=== PATIENT | female | born 1950 | race Caucasian/White ===

== ENCOUNTER → 2018-03-14 12:34 | Outpatient (CLI) | payer BC, SELFPAY ==
--- NOTE | 2018-03-14 12:37 | BI_ITS ---
MAMMOGRAPHY - BILATERAL SCREENING REASON FOR EXAM: Female, 67 years old. Routine annual screening examination. PERTINENT HISTORY: Mother with breast cancer. Grandmother with breast cancer. TECHNIQUE: Digital bilateral breast luis antonio (3D mammographic acquisition) in the CC and MLO projections. 2-D mediolateral oblique (MLO) and craniocaudad (CC) views of both breasts were obtained. CAD: Full Field Digital Mammography with Computer Added Detection was performed. COMPARISON: Comparison is made with prior study a number 02/11/2016 and March 08, 2016. FINDINGS: Breast Composition: The breasts are heterogeneously dense, which may obscure small masses. There are no dominant masses or suspicious calcifications. No other significant abnormalities are identified. There has been no significant change since the prior study. BI/SCREENING MAMM (CAD), BILAT IMPRESSION: Stable bilateral screening mammogram. Yearly follow-up mammogram recommended. (A) ASSESSMENT CATEGORY: BIRADS Category 1: Negative. A letter regarding these results will be sent to the patient by the facility within 30 days. Approximately 10% of breast cancers are not detected by mammography. A normal mammogram should not delay biopsy of a clinically suspicious abnormality. [id number] Electronically Signed: Adrián Geiger MD at 14:41 EST Tel [phone], Service support ,
--- NOTE | 2018-03-14 12:39 | BD_ITS ---
STUDY: DUAL ENERGY X-RAY ABSORPTIOMETRY / DXA REASON FOR EXAM: Female, 67 years old. The patient is postmenopausal. Loss of height. TECHNIQUE: Bone Mineral Density (BMD) measurements of lumbar spine and bilateral hips were obtained. COMPARISON: Comparison is made with prior study dated March 08, 2016. FINDINGS: Lumbar Spine (L1-L4): g/cm2 (1.223) / T-score (0.4) / Z-score (2.1) Findings are suggestive of normal bone density with a low fracture risk. Left Femur Total: g/cm2 (0.636) / T-score (-2.9) / Z-score (-1.7) Left Femoral Neck: g/cm2 (0.682) / T-score (-2.6) / Z-score (-1.0) Right Femur Total: g/cm2 (0.594) / T-score (-3.3) / Z-score (-2.0) Right Femoral Neck: g/cm2 (0.686) / T-score (-2.5) / Z-score (-1.0) The T-Scores on the most recent prior examination were: Lumbar Spine (L1-L4): There has been improvement of bone density since the previous examination. Left Femur Total: which represents a worsening of 9.8%. Right Femur Total: which represents a worsening of 14.9%. BD/Dexa Bone Density Study IMPRESSION: The patient is considered osteoporotic as outlined below according to World [employer] Organization (WHO) criteria with a high fracture risk. There has been worsening of bone density since the previous examination. Reference Information: The T-score is the number of standard deviations above or below the standard which is normal for young adults at their peak bone mineral density. The World Health Organization (WHO) interprets the T-scores as follows: Above -1 Normal bone density Between -1 and -2.5 Osteopenia Equal to / or below -2.5 Osteoporosis As a practical clinical guideline, osteopenia may be graded as follows: Mild -1 through -1.5 Moderate -1.6 through -2.0 Severe -2.1 through -2.4 The Z-score is the number of standard deviations above or below age-matched controls. A Z-score of less than -1.5 would be considered abnormal. References: 1. NIH Osteoporosis and Related Bone Diseases http://www.osteo.org 2. International Society for Clinical Densitometry http://www.iscd.org 3. National Osteoporosis Foundation http://www.nof.org Electronically Signed: Adrián Geiger MD at 13:08 EST Tel [phone], Service support ,
--- OUTSIDE RECORDS SUMMARY | 2018-05-09 15:53 | XMS RPT_ITS | Continuity of Care Document ---
:1950 Author Organization [facility] Address [address] [facility] [address] [place] [address] Phone Care Team Providers Name Role Phone Guy DURAN Allison A Unavailable Dr. 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) Status: Active Chronic fatigue (R53.82, 780.79) Comments: she will talk with Rachel about xr version of ritalin so lasts longer Status: Active Chronic obstructive pulmonary disease (J44.9, 496) Comments: chronic stable-continue present regimen Status: Active Colon polyp (K63.5, 211.3) Comments: recheck 08/2020 Status: Active Deliveries (Parity) Comments: 2 Status: Active Depression (F32.9, 311) Comments: improved Status: Active Encounter for hepatitis C virus screening test for high risk patient (Z11.59, V73.89) Status: Active Encounter for screening mammogram for breast cancer (Renamed from Encounter for screening mammogram for malignant neoplasm of breast) (Z12.31, V76.12) Status: Active Encounter for screening mammogram for breast cancer (Renamed from Encounter for screening mammogram for malignant neoplasm of breast) (Z12.31, V76.12) Status: Active Encounter for screening mammogram for breast cancer (Renamed from Screening mammogram, encounter for) (Z12.31, V76.12) Status: Active Episode of recurrent major depressive disorder, unspecified depression episode severity (F33.9, 296.30) Comments: mood ok Status: Active Hallucinations, visual (R44.1, 368.16) Comments: think was higher dose of welbutrin so dont go up on doseage again Status: Active Hypercalcemia (E83.52, 275.42) Status: Active Hyperlipidemia (E78.5, 272.4) Comments: we discussed diet changes to improve Status: Active Inability to walk (R26.2, 719.7) Comments: doing bit better Status: Active 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, 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) Comments: workup neg maybe due to meds not present right now Status: Active Low back pain potentially associated with radiculopathy (M54.5, 724.2) Status: Active [facility] wellness exam Status: Active [facility] WELLNESS EXAM Status: Active Mixed incontinence (N39.46, 788.33) Status: Active Multiple sclerosis (G35, 340) Comments: overall stable Status: Active Need for prophylactic vaccination and inoculation against influenza (Renamed from Need for immunization against influenza) (Z23, V04.81) Status: Active Need for prophylactic vaccination and inoculation against influenza (Renamed from Need for immunization against influenza) (Z23, V04.81) Status: Active Nonsmoker (Z78.9, V49.89) Status: Active Osteopenia (M85.80, 733.90) Status: Active Osteoporosis of multiple sites (M81.0, 733.00) Comments: we discussed the need for exercising with weights as she cant walk Status: Active Pneumonia, bacterial (J15.9, 482.9) Status: Active Postmenopausal (Renamed from Postmenopausal status) (Z78.0, V49.81) Status: Active Pregnancies () Comments: 1 Status: Active Synovial cyst (M71.30, 727.40) Comments: reassurance Status: Active UTI (urinary tract infection) (N39.0, 599.0) Status: Active UTI (urinary tract infection) (N39.0, 599.0) Status: Active Wheezing (R06.2, 786.07) Status: Active Medications Name Dates Details Citalopram Hydrobromide 20 MG Oral Tablet 1 (one) Tablet qd for 30 days Quantity: 30 {Tablet} Refills: 5 Ordered:22-Feb-2018Allison DO, Debra A Start : 22-Feb-2018 Active FOLIC ACID, 800MCG (Oral Tablet) 3 tabs qd for 0 days Refills: 0 Ordered:07-Sep-2009 Saurabh Zacarias Losartan Potassium 50 MG Oral Tablet 1 (one) Tablet qd for 0 days Quantity: 30 {Tablet} Refills: 5 Ordered:14-Sep-2017 Florencia Pérez MD Start : 14-Sep-2017 Active MULTIVITAMIN (PO Tab) 1 tab qd for 0 days Refills: 0 Ordered:07-Sep-2009 Saurabh Zacarias Ocrevus 300 MG/10ML Intravenous Solution 1 (one) Milligram Milligram DIRECTED for 0 days Quantity: 1 {Milligram} Refills: 0 Ordered:16-Oct-2017 Kelsey Colon Start : 05-Sep-2017 Active Comments:PER BAVIS PROBIOTIC (Oral Capsule) 1 cap daily Active PROVENTIL HFA, 108 (90 Base)MCG/ACT (Inhalation Aerosol Solution) 2 (two) Puff(s) qid prn for 0 days Quantity: 1 {Aerosol_Soln} Refills: 0 Ordered:24-Nov-2013 Kimberlyn Nascimento LPN Start : 26-Sep-2010 Active Ritalin 10 MG Oral Tablet 2 tabs daily (10 MG) Active Stool softner 1 cap tid Active Vitamin D 2000 UNIT Oral Capsule 1 (one) Capsule qod for 0 days Quantity: 30 {Capsule} Refills: 0 Ordered:05-Sep-2017, Allison AFast DO, Allison A Start : 05-Sep-2017 Active Wellbutrin XL 150 MG Oral Tablet Extended Release 24 Hour 1 (one) Tablet ER 24HR qd for 30 days Quantity: 30 {Tablet} Refills: 5 Ordered:03-Dec-2017 Kelsey Colon Start : 03-Dec-2017 Active Comments:do not go up on doseage - potentially caused hallucinations Ampyra 10mg qd Inactive Ampyra 10 MG Oral Tablet Extended Release 12 Hour 1 (one) Tablet Tablet DIRECTED for 0 days Quantity: 30 {Tablet} Refills: 0 Ordered:18-Jan-2018 Allison Tovar DO AFast , Allison A Start : 05-Sep-2017 End : 18-Jan-2018 Inactive Comments:bAVIS CEFADROXIL, 500MG (Oral Capsule) 1 (one) Capsule bid for 7 days Quantity: 14 {Capsule} Refills: 0 Ordered:02-Mar-2014 Natalya RUBIOValeria Start : 02-Mar-2014 End : 09-Mar-2014 Inactive Cipro 500 MG Oral Tablet 1 (one) Tablet bid for 7 days Quantity: 14 {Tablet} Refills: 0 Ordered:31-Jan-2016 Kinjal Zacarias Start : 31-Jan-2016 End : 07-Feb-2016 Inactive Cipro 500 MG Oral Tablet 1 (one) Tablet Tablet bid for 10 days Quantity: 20 {Tablet} Refills: 0 Ordered:19-Oct-2015 Allison Tovar DO, DO, Allison A Start : 19-Oct-2015 End : 29-Oct-2015 Inactive CLINDAMYCIN HCL, 300MG (Oral Capsule) 1 Capsule q6hrs for 10 days Quantity: 40 Refills: 0 Ordered:26-Sep-2010 Kinjal Zacarias Start : 26-Sep-2010 End : 06-Oct-2010 Inactive CUTIVATE, 0.05% (External Cream) 1 Cream bid for 0 days Quantity: 1 {Cream} Refills: 0 Ordered:26-Sep-2010 Kimberlyn Nascimento LPN Start : 20-Jun-2010 End : 26-Sep-2010 Inactive Grape Seed Extract 60 MG Oral Capsule 1 cap qd for 0 days Refills: 0 Ordered:12-Dec-2016 Kelsey Colon End : 12-Dec-2016 Inactive Levaquin 500 MG Oral Tablet 1 (one) Tablet Tablet in am for 0 days Quantity: 14 {Tablet} Refills: 0 Ordered:17-Apr-2017 Kelsey Colon Start : 11-Jan-2017 End : 17-Apr-2017 Inactive PredniSONE 10 MG Oral Tablet 2 (two) Tablet for 4 days and 1 pill for 4 days for 0 days Quantity: 12 {Tablet} Refills: 0 Ordered:17-Apr-2017 Kelsey Colon Start : 16-Jan-2017 End : 17-Apr-2017 Inactive Comments:take with food in am PredniSONE 20 MG Oral Tablet 1 (one) Tablet bid for 3 days 1 a day for 3 days then stop for 6 days Refills: 0 Ordered:16-Jan-2017 Kelsey Colon Start : 11-Jan-2017 End : 16-Jan-2017 Inactive Prolia 60 MG/ML Subcutaneous Solution 1 (one) Solution Solution q 6 months for 0 days Quantity: 1 {Pre-filled_Pen_Syringe} Refills: 1 Ordered:12-Dec-2016 Kelsey Colon Start : 04-Jul-2016 End : 12-Dec-2016 Inactive PROVIGIL, 200MG (Oral Tablet) 1 tab qd, prn for 0 days Refills: 0 Ordered:11-Oct-2015 Kelsey Colon End : 11-Oct-2015 Inactive ACTONEL, 150MG (Oral Tablet) 1 Tablet q month for 0 days Quantity: 3 {Tablet} Refills: 3 Ordered:05-Oct-2014 Fast DO, Allison AFast DO, Allison A Start : 05-Oct-2014 End : 05-Oct-2014 Discontinued ACTONEL, 35MG (Oral Tablet) 1 (one) Tablet q week for 0 days Quantity: 4 {Tablet} Refills: 3 Ordered:14-Mar-2010 Fast DO, Allison AFast DO, Allison A Start : 14-Mar-2010 End : 14-Mar-2010 Discontinued Calcium 600 MG Oral Tablet 2 tabs bid for 0 days Refills: 0 Ordered:26-Jan-2016 Kinjal Zacarias End : 26-Jan-2016 Discontinued DESIPRAMINE HCL, 100MG (Oral Tablet) 1 1/2 tabs qd for 0 days Refills: 0 Ordered:02-Nov-2014 Kinjal Zacarias End : 02-Nov-2014 Discontinued FLONASE, 50MCG/ACT (Nasal Suspension) 2 (two) Puff(s) daily for 0 days Quantity: 1 {Suspension} Refills: 0 Ordered:24-Nov-2013 MaryannKelsey staples Start : 27-Sep-2011 End : 12-Jun-2016 Discontinued Comments:This order discontinued per [facility]. FOSAMAX, 70MG (Oral Tablet) 1 (one) Tablet q week for 0 days Quantity: 12 {Tablet} Refills: 3 Ordered:10-Mar-2009 Fast DO, Allison AFast DO, Allison A Start : 10-Mar-2009 End : 10-Mar-[address] GON[facility]ALEZ WORT MOOD RELAXER, 300MG (Oral Capsule) 3 caps daily (300 MG) End : 21-Apr-2015 Discontinued VITAMIN D, 400UNIT (Oral Tablet) 2 tabs bid for 0 days Refills: 0 Ordered:26-Jan-2016 Kinjal Zacarias End : 26-Jan-2016 Discontinued Comments:This order discontinued per [facility]. Wellbutrin XL 300 MG Oral Tablet Extended Release 24 Hour 1 (one) Tablet ER 24HR qd for 0 days Quantity: 30 {Tablet} Refills: 3 Ordered:29-Feb-2016 Kinjal Zacarias Start : 10-Jan-2016 End : 29-Feb-2016 Discontinued Allergies and Adverse Reactions Name Dates Details Riphampin (Allergy) Status: Active Past Medical History Name Dates Details Abnormal EKG (R94.31, 794.31) Status: Inactive as of 05-Sep-2017 Abnormal urine (R82.90, 791.9) Status: Resolved as of 21-Nov-2011 Atypical Spitz nevus (D48.5, 238.2) Status: Resolved as of 14-Mar-2010 BMI less than 19,adult (Z68.1, V85.0) Status: Inactive as of 05-Sep-2017 Chest pain (R07.9, 786.59) Status: Resolved as of 10-Mar-2009 Diarrhea (R19.7, 787.91) Status: Resolved as of 21-Nov-2011 Dysuria (R30.0, 788.1) Status: Inactive as of 12-Oct-2008 Eczema herpeticum (B00.0, 054.0) Status: Resolved as of 02-Nov-2014 Elevated blood-pressure reading without diagnosis of hypertension (R03.0, 796.2) Status: Resolved as of 02-Nov-2014 Lesion of lower extremity (L98.9, 709.9) Comments: scab like at site of ? twig insertion antibiotics completed now smaller but still present continue to observe. wear sock well above or below Status: Inactive as of 05-Sep-2017 Multiple Sclerosis Status: Inactive as of 23-May-2016 Need for prophylactic vaccination and inoculation against influenza (Z23, V04.81) Status: Inactive as of 01-Mar-2015 Other specified viral infection, in conditions classified elsewhere and of unspecified site (B97.89, 079.89) Status: Resolved as of 01-Mar-2015 Pain in unspecified hip (M25.559, 719.45) Comments: she feels this is better Status: Inactive as of 05-Sep-2017 Pre-operative examination (Z01.818, V72.84) Status: Inactive as of 12-Oct-2008 Prophylactic vaccination against streptococcus pneumoniae and influenza (Z23, V06.6) Status: Inactive as of 12-Oct-2008 REACTION DUE TO ASPIRATION, FLUID (E879.4) Status: Resolved as of 21-Nov-2011 scrdeening Status: Inactive as of 01-Mar-2015 screen Status: Inactive as of 10-Mar-2009 screening Status: Inactive as of 01-Mar-2015 screening Status: Inactive as of 01-Mar-2015 screening Status: Inactive as of 01-Mar-2015 screening Status: Inactive as of 21-Nov-2011 TUBERCULOSIS OF LUNG; INFILTRATIVE, BACTERIOLOGICAL OR HISTOLOGICAL EXAMINATION RESULTS UNKNOWN (AT PRESENT) (011.02) Status: Resolved as of 10-Mar-2009 Unspecified Diagnosis Status: Inactive as of 01-Mar-2015 Vaccine for jrijllqtkk-zxrepcl-rrnpiwmcx with poliomyelitis (Z23, V06.3) Status: Inactive as of 18-Nov-2012 Wheezing (R06.2, 786.07) Status: Inactive as of 23-May-2016 Procedures Procedure Dates Details Hysterectomy, Total Completed Comments: 2008- no cancer Tonsillectomy Completed Date Value Details 12-Mar-2017 SCREENING MAMM (CAD), BILAT Result: Comments: See Note; NOTES: [facility] Imaging Services [address] [place] [address] SCREENING MAMM (CAD), BILAT MR#: [id number] Acct: [id number] Name: GREY WOMACK Rep #: [id number] : 1950 F 66 From: Milton Grubbs MD PCP: Allison Tovar DO Status: REG CLI Study: SCREENING MAMM (CAD), BILAT Date of Exam: 03/12/17 Exam# [id number] Ordering Dr: Allison Tovar DO MAMMOGRAPHY - BILATERAL SCREENING REASON FOR EXAM: Female, 66 years old. Routine annual screening examination. PERTINENT HISTORY: Grandmother and mother with breast cancer. TECHNIQUE: Digital examination. Medio lateral oblique (MLO) and craniocaudad (CC) views of both breasts were obtained, along with 3-D tomosynthesis. CAD: CAD was performed on this study. COMPARISON: 03/08/2016 FINDINGS: Breast Density: Scattered fibroglandular densities. There are no dominant masses or suspicious calcifications. No other significant abnormalities are identified. There has been no si gnificant change since the prior study. HPBI/SCREENING MAMM (CAD), BILAT IMPRESSION: Stable bilateral screening mammogram. Yearly follow-up mammo gram recommended. (A) ASSESSMENT CATEGORY: BIRADS Category 2: Benign. A letter regarding these results will be sent to the patient by the facility within 30 days. BR2 Approximately 10% of breast cancers are not detected by mammography. A normal mammogram should not delay biopsy of a clinically suspicious abnormality. [id number] Electronically Signed: Jacob barraza MD at 11:13 EST , Service support , CC: Allison Tovar DO Milk Delivery Driver: Signed 16-Jan-2017 Chest PA and Lateral Result: Comments: See Note; NOTES: [facility] Imaging Services [address] [place] [address] Chest PA and Lateral MR#: [id number] Acct: [id number] Name: GREY WOMACK El Rep #: [id number] : 1950 F 66 From: Layo Wiley DO PCP: Allison Tovar DO Status: REG CLI Study: Chest PA and Lateral Date of Exam: 01/16/17 Exam# [id number] Ordering Dr: Allison Tovar DO STUDY: X-RAY CHEST R JENNIFER FOR EXAM: Female, 66 years old. Cough, upper respiratory infection TECHNIQUE: AP and lateral views of the chest. COMPARISON: Comparison is made with report of prior study from 09/26/2010. FINDINGS: The lungs are hyperinflated. There is streaky opacity within both upper lobes. This may represent chronic scarring/atelectasis. There is no demonstrated pleural abnormality. Normal size heart. Normal mediastinum and francesco. Normal visualized pulmonary arteries. Normal visualized aortic arch and descending thoracic aorta. Normal visualized thoracic spine. Normal visualized ribs, clavicles, and shoulders. There is no demonstrated abnormality of the visualized soft tissue structures of the upper abdomen. RAD/Chest PA and Lateral IMPRESSION: Hyperinflation with bilateral streaky upper lobe densities which may represent chronic scarring. Electronically Signed: Layo Wiley DO at 13:37 EDT Tel , Service support , CC: Allison Tovar DO Milk Delivery Driver: Signed 21-Nov-2016 Brain W/WO Contrast Result: Comments: See Note; NOTES: [facility] Imaging Services [address] [place] [address] Brain W/WO Contrast MR#: [id number] Acct: [id number] Name: ANGELITORADHAGREY Rep #: [id number] : 1950 F 66 From: Ang Ledezma DO PCP: Allison Tovar DO Status: REG CLI Study: Brain W/WO Contrast Date of Exam: 11/21/16 Exam# [id number] Ordering Dr: Bakari Ramos MD STUDY: MRI BRAIN W ITH AND WITHOUT CONTRAST REASON FOR EXAM: Female, 66 years old. Multiple sclerosis undergoing yearly reexamination. TECHNIQUE: Standardized multiplanar fat and water weighted pulse sequences were obta ined. 6 ml of Gadavist contrast material was administered intravenously for the contrast portion of the examination. COMPARISON: MRI BRAIN-July 03, 2012 FINDINGS: There is moderate to severe cerebral atrophy with widening of the extra-axial spaces and ventricular dilatation, which appears similar and unchanged compared the prior examination. There is predominant ventricular enlargement with large posterior horns of the bilateral ventricles. There is severe thinning of the corpus callosum with extensive demyelinating plaque formation extending along the inferior aspect of the corpus callosum with extensive periventricular/septocallosal perpendicular demyelinating plaques in a periventricular location. There is a juxtacortical area of demyelination involving th e right frontal lobe (axial T2 FLAIR series 8, image 16). There are confluent areas of demyelination extending along the bilateral optic radiations to the occipital lobes (axial T2 FLAIR series 8, image 12). The demyelinating plaques extending along the periventricular location involving the bilateral temporal horns (axial T2 FLAIR series 8, image 11). There is no active demyelinating plaque disease a nd there are no enhancing lesions. There is no demonstrated demyelinating disease of the brainstem or posterior fossa. There is no evidence for recent intracranial ischemia or other cause of cytotoxic e karla on diffusion weighted imaging (DWI). Normal bilateral basal ganglia. Normal thalami. There is no extra-axial fluid accumulation. Normal flow voids within the major intracranial circulation sugges ting patency by spin echo criteria. Normal venous enhancement. There is no enhancing intra-axial or extra-axial abnormality. Normal sella turcica, pituitary gland, infundibular stalk, optic chiasm and hypothalamus. Normal tectal plate and pineal gland. Normal midbrain, chance and medulla. There is severe prominence of the vermian folia, consistent with atrophy of the vermis (sagittal T1 FLAIR series 3 , image 12).. The cerebellar hemispheres are normal. Normal basal cisterns. Normal bilateral temporal bones. Normal bilateral internal auditory canals. No demonstrated orbital abnormality, within the c onstraints of a routine brain study. Normal visualized paranasal sinuses. Normal calvarium and skull base. Normal visualized soft tissue structures. Normal visualized upper cervical spine. MRI/Brain W/WO Contrast IMPRESSION: 1. Extensive demyelinating plaque disease of the supratentorial brain, but without active demyelination. 2. Moderate to se sheyla cerebral atrophy with prominent ventricular enlargement. 3. Severe vermian atrophy of the cerebellum. Electronically Signed: Ang Ledezma DO at 15:38 EDT Tel , Ser vice support , CC: Allison Tovar DO; Bakari Ramos Milk Delivery Driver: Signed 08-Mar-2016 Bilat Scrn Digital AND CAD Result: Comments: See Note; NOTES: [facility] Imaging Services [address] [place] [address] Verdana 4d Bilat Scrn Digital AND CAD MR#: [id number] Acct: [id number] Name: GREY WOMACK Rep #: [id number] : 1950 F 65 From: Adrián Geiger MD PCP: Allison Tovar DO Status: REG CLI Study: Bilat Scrn Digital AND CAD Date of Exam: 03/08/16 Exam# [id number] Ordering Dr: Allison Tovar DO MAMMOGRAPHY - BILATERAL SCREENING REASON FOR EXAM: Female, 65 years old. Routine annual screening examination. PERTINENT HISTORY: Mother with breast cancer. Grandmother with breast cancer. TECHN IQUE: Digital bilateral breast luis antonio (3D mammographic acquisition) in the CC and MLO projections. 2-D mediolateral oblique (MLO) and craniocaudad (CC) views of both breasts were obtained. CAD: Full Field Digital Mammography with Computer Added Detection was performed. COMPARISON: Comparison is made with prior study dated December 11, 2014 and December 10, 2013. FINDING S: Breast Composition: The breasts are heterogeneously dense, which may obscure small masses. There are no dominant masses or suspicious calcifications. No other significant abnormalities are identifi ed. There has been no significant change since the prior study. HPBI/Bilat Scrn Digital AND CAD IMPRESSION: Stable bilateral screening mammogram. Yearly follow-up mammogram recommended. (A) ASSESSMENT CATEGORY: BIRADS Category 1: Negative. A letter regarding these results will be sent to the patient by the [facility] within 30 days. Approximately 10% of breast cancers are not detected by mammography. A normal mammogram should not delay biopsy of a clinically suspicious abnormality. [id number] Electronically S igned: Adrián Geiger MD at 12:48 EST Tel [phone], Service support [phone], CC: Allison Tovar DO Milk Delivery Driver: Signed 08-Mar-2016 Dexa Bone Density Study (HP) Result: Comments: See Note; NOTES: [facility] Imaging Services [address] [place] [address] Verdana 4d Dexa Bone Density Study (HP) MR#: [id number] Acct: [id number] Name: HIMA WOMACK Thierry Gallegos Rep #: [id number] : 1950 F 65 From: Adrián Geiger MD PCP: Allison Tovar DO Status: REG CLI Study: Dexa Bone Density Study (HP) Date of Exam: 03/08/16 Exam# [id number] Ordering Dr: Terry DO STUDY: DUAL ENERGY X-RAY ABSORPTIOMETRY / DXA REASON FOR EXAM: Female, 65 years old. Early menopause. Loss of height. The patient is in a wheelchair. Decreased mobility. TECHNIQUE: Bone Irrigation Teacher al Density (BMD) measurements of both forearms were obtained. COMPARISON: None. FINDINGS: Right Forearm: g/cm2 (0.747) / T-score (-1.6) / Z-score (-0.2) Left Forea rm: g/cm2 (0.672) / T-score (-2.4) / Z-score (-1.1) HPBD/Dexa Bone Density Study (HP) IMPRESSION: The patient is considered osteopenic as outlin ed below according to World Edmar Organization (WHO) criteria with a moderate fracture risk. Reference Information: The T-score is the number of standard deviations above or below the standard which is normal for young adults at their peak bone mineral density. The World Health Organization (WHO) interprets the T-scores as follows: Above -1 Normal bone density Be tween -1 and -2.5 Osteopenia Equal to / or below -2.5 Osteoporosis As a practical clinical guideline, osteopenia may be graded as follows: Mild -1 through -1.5 Moderate -1.6 through -2.0 Severe -2.1 th rough -2.4 The Z-score is the number of standard deviations above or below age- matched controls. A Z-score of less than -1.5 would be considered abnormal. References: 1. NIH Osteoporosis and Related B one Diseases http://www.osteo.org 2. International Society for Clinical Densitometry http://www.iscd.org 3. National Osteoporosis Foundation http://www.nof.org Electronically Signed: Adrián Geiger MD at 10:43 EST Tel [phone], Service support [phone], CC: Allison Tovar DO Milk Delivery Driver: Signed 07-Feb-2016 L/S Spine Min 4 Views Result: Comments: See Note; NOTES: [facility] Imaging Services [address] [place] [address] Verdana 4d L/S Spine Min 4 Views MR#: [id number] Acct: [id number] Name: GREY WOMACK Re p #: [id number] : 1950 F 65 From: Lucio Walton MD PCP: Allison Tovar DO Status: REG CLI Study: L/S Spine Min 4 Views Date of Exam: 02/07/16 Exam# [id number] Ordering Dr: Allison Tovar DO STUDY : X-RAY - LUMBAR SPINE REASON FOR EXAM: Female, 65 years old. Back pain TECHNIQUE: 5 view(s) of the lumbar spine were obtained. COMPARISON: None FINDINGS: No defi nite acute abnormality. Mild scoliosis to the right. Normal lordosis. 9 mm anterolisthesis of L4 on L5. Otherwise normal alignment. Mild/moderate degenerative disc disease at multiple levels most pronou nced at L1-L2 and L2-L3. Multilevel facet joint degenerative disease. Soft tissues grossly negative. IMPRESSION: No definite acute abnormalities. Degenerative changes. Malalignment of L4 on L5. Electr onically Signed: Lucio Walton MD at 21:06 EDT , Service support [phone], RAD/L/S Spine Min 4 Views CC: Allison Tovar DO Milk Delivery Driver: Signed 14-Oct-2015 Brain W/WO Contrast Result: Comments: See Note; NOTES: [facility] Imaging Services [address] [place] [address] Verdana 4d Brain W/WO Contrast MR#: [id number] Acct: [id number] Name: GREY WOMACK Rep #: [id number] : 1950 F 65 From: Moriah Juarez MD PCP: Allison Tovar DO Status: REG CLI Study: Brain W/WO Contrast Date of Exam: 10/14/15 Exam# [id number] Ordering Dr: Allison Tovar DO STUDY: MRI BRAIN WITH AND WITHOUT CONTRAST REASON FOR EXAM: Female, 65 years old. MS, lesion progression, difficulty walking, moving TECHNIQUE: Standardized multiplanar fat and water weighted pulse sequences were obtained. 5 ml of Gadavist contrast material was administered intravenously for the contrast portion of the examination. COMPARISON: None. FINDINGS: Normal size of the ventricles and extra-axial spaces for the patient's age. Normal white matter tracts of the supratentorial brain. There are multiple demyelinating plagues of the supraten torial brain and in the left middle cerebellar peduncle, findings suspicious for multiple sclerosis (MS). Normal bilateral basal ganglia. Normal thalami. There is no extra-axial fluid accumulation. Normal flow voids within the major intracranial circulation suggesting patency by spin echo criteria. Normal venous enhancement. There is no enhancing intra- axial or extra-axial abnormality. Norm al sella turcica, pituitary gland, infundibular stalk, optic chiasm and hypothalamus. Normal tectal plate and pineal gland. Normal midbrain, chance and medulla. Normal cerebellum. Normal basal cistern s. Normal bilateral temporal bones. Normal bilateral internal auditory canals. No demonstrated orbital abnormality, within the constraints of a routine brain study. There is a mucosal retention cyst in left maxillary sinus measures 2.5 cm. Normal calvarium and skull base. Normal visualized soft tissue structures. Normal visualized upper cervical spine. IMPR ESSION: There are multiple demyelinating plagues of the supratentorial brain and in the left middle cerebellar peduncle, findings suspicious for multiple sclerosis (MS). No abnormal enhancement is se en after contrast administration to suggest active demyelination. Electronically Signed: Moriah Juarez MD at 11:10 EDT Tel , Service support [phone], Fax CC: Allison Tovar DO Milk Delivery Driver: Signed 14-Oct-2015 Brain W/WO Contrast Result: Comments: See Note; NOTES: [facility] Imaging Services [address] [place] [address] Youdacorey 4d Brain W/WO Contrast MR#: [id number] Acct: [id number] Name: GREY WOMACK Rep #: [id number] : 1950 F 65 From: Moriah Juarez MD PCP: Allison Tovar DO Status: REG CLI Study: Brain W/WO Contrast Date of Exam: 10/14/15 Exam# [id number] Ordering Dr: Allison Tovar DO ADDENDUM by Moriah Juarez MD on 10/15/15 at 1238 ADDENDUM There has been no significant c hange in the number and size of the lesions of the supratentorial brain and the left middle cerebellar peduncle, since the study from July 03, 2012. Electronically Signed: Moriah Juarez MD 10/14 at 12:38 EDT Tel , Service support [phone], 10/15/15 1238 Date cc: Allison Tovar DO * Signed STUDY: MRI BRAIN WITH AND WITHOUT CONTR AST REASON FOR EXAM: Female, 65 years old. MS, lesion progression, difficulty walking, moving TECHNIQUE: Standardized multiplanar fat and water weighted pulse sequences were obtained. 5 ml of Gada vist contrast material was administered intravenously for the contrast portion of the examination. COMPARISON: None. FINDINGS: Normal size of the ventricles an d extra-axial spaces for the patient's age. Normal white matter tracts of the supratentorial brain. There are multiple demyelinating plagues of the supratentorial brain and in the left middle cerebel lar peduncle, findings suspicious for multiple sclerosis (MS). Normal bilateral basal ganglia. Normal thalami. There is no extra-axial fluid accumulation. Normal flow voids within the major intrac ranial circulation suggesting patency by spin echo criteria. Normal venous enhancement. There is no enhancing intra-axial or extra-axial abnormality. Normal sella turcica, pituitary gland, infundibu lar stalk, optic chiasm and hypothalamus. Normal tectal plate and pineal gland. Normal midbrain, chance and medulla. Normal cerebellum. Normal basal cisterns. Normal bilateral temporal bones. Normal b ilateral internal auditory canals. No demonstrated orbital abnormality, within the constraints of a routine brain study. There is a mucosal retention cyst in left maxillary sinus measures 2.5 cm. N ormal calvarium and skull base. Normal visualized soft tissue structures. Normal visualized upper cervical spine. IMPRESSION: There are multiple demyelinating pl agues of the supratentorial brain and in the left middle cerebellar peduncle, findings suspicious for multiple sclerosis (MS). No abnormal enhancement is seen after contrast administration to suggest active demyelination. Electronically Signed: Moriah Juarez MD at 11:10 EDT Tel , Service support [phone], CC: Allison Tovar DO Milk Delivery Driver: Signed 11-Dec-2014 Bilat Scrn Digital AND CAD Result: Comments: See Note; NOTES: [facility] Imaging Services [address] [place] [address] Breast Imaging Report MR#: [id number] Acct: [id number] Name: HIMA WOMACKThierry Gallegos Rep #: [id number] : 1950 F 64 From: Adrián Geiger MD PCP: Allison Tovar DO Status: REG CLI Study: Bilat Scrn Digital AND CAD Date of Exam: 12/11/14 Exam# [id number] Ordering Dr: Allison Tovar DO MAMMOGRAPHY - BILATERAL SCREENING REASON FOR EXAM: Female, 64 years old. Routine annual screening examination. PERTINENT HISTORY: Mother with breast cancer. Grandmother with breast cancer. REGI HNIQUE: Digital examination. Mediolateral oblique (MLO) and craniocaudad (CC) views of both breasts were obtained. CAD: CAD was performed on this study. COMPARISON: Comparison is made with prior joyce dy dated December 10, 2013 and December 09, 2012. FINDINGS: Breast Composition: The breasts are heterogeneously dense, which may obscure small masses. There are n o dominant masses or suspicious calcifications. No other significant abnormalities are identified. There has been no significant change since the prior study. I MPRESSION: Stable bilateral screening mammogram. Yearly follow-up recommended. (A) ASSESSMENT CATEGORY: BIRADS Category 1: Negative. A letter regarding these re sults will be sent to the patient by the facility within 30 days. Approximately 10% of breast cancers are not detected by mammography. A normal mammogram should not delay biopsy of a clinically susp icious abnormality. Electronically Signed: Adrián Geiger MD at 10:36 EDT Tel [phone], Service support [phone], CC: Allison Tovar DO Milk Delivery Driver: Signed 12-Oct-2014 Hip min 2 Views Result: Comments: See Note; NOTES: [facility] Imaging Services [address] [place] [address] Radiology Report MR#: [id number] Acct: [id number] Name: VUGREY Rep #: [id number] : 1950 F 64 From: Adrián Geiger MD PCP: Allison Tovar DO Status: REG CLI Study: Hip min 2 Views Date of Exam: 10/12/14 Exam# [id number] Ordering Dr: Allison Tovar DO STUDY: X-RAY - RIGHT HIP REASON FOR EXAM: Female, 64 years old. Hip pain. TECHNIQUE: 2 view(s) of the hip. COMPARISON: None. FINDINGS: Normal femoral head, neck, intertr ochanteric region and visualized proximal femur. Normal acetabulum. Normal hip joint. Normal visualized superior and inferior pubic rami and ischial tuberosities. __ IMPRESSION: Normal x-ray examination of the hip. Electronically Signed: Adrián Geiger MD at 15:50 EDT Tel [phone], Service support [phone], RAD/Hip min 2 Views IMPRESSION: Normal x-ray examination of the hip. Electronically Signed: Adrián Geiger MD at 15:50 EDT Tel [phone], Service support , CC: Allison Tovar DO Milk Delivery Driver: Signed 10-Dec-2013 Robina Simmons Digital & CAD Result: Comments: See Note; NOTES: [facility] Imaging Services [address] [place] [address] Breast Imaging Report MR#: [id number] Acct: [id number] Name: GREY WOMACK Rep #: [id number] : 1950 F 63 From: Adrián Geiger MD PCP: Allison Tovar DO Status: REG CLI Exam# [id number] Ordering Dr: Allison Tovar DO MAMMOGRAPHY - BILATERAL SCREENING REASON FOR EXAM: Fem paulie, 63 years old. Routine annual screening examination. PERTINENT HISTORY: Mother with breast cancer. Grandmother with breast cancer. TECHNIQUE: Digital examination. Mediolateral oblique (MLO) an d craniocaudad (CC) views of both breasts were obtained. CAD: CAD was performed on this study. COMPARISON: Comparison is made with prior study dated December 09, 2012 and December 05, 2011 FINDINGS: Breast Composition: The breasts are extremely dense, which lowers the sensitivity of mammography. There are no dominant masses or suspicious calcifications. No other significant abnormalities are identified. There has been no significant change since the prior study. IMPRESSION: Stable bilateral screening mammogram. Ye georgette follow-up recommended. (A) ASSESSMENT CATEGORY: BIRADS Category 2: Benign finding(s). A letter regarding these results will be sent to the patient by the fa cility within 30 days. Approximately 10% of breast cancers are not detected by mammography. A normal mammogram should not delay biopsy of a clinically suspicious abnormality. Electronically Signed : Adrián Geiger MD at 10:53 EDT Tel [phone], Service support [phone], CC: Allison Tovar DO Milk Delivery Driver: Signed 10-Dec-2013 Dexa Bone Density Study (HP) Result: Comments: See Note; NOTES: [facility] Imaging Services [address] [place] [address] Bone Density Report MR#: [id number] Acct: [id number] Name: ANGELITORADHAGREY Rep #: [id number] : 1950 F 63 From: Adrián Geiger MD PCP: Allison Tovar DO Status: [facility] Study: Dexa Bone Density Study (HP) Date of Exam: 12/10/13 Exam# [id number] Ordering Dr: Allison Tovar DO STUDY: DUAL ENERGY X-RAY ABSORPTIOMETRY / DXA REASON FOR EXAM: Female, 63 years old. Osteopenia. TECHNIQUE: Bone Mineral Density (BMD) measurements of lumbar spine and bilateral hips were obtained . COMPARISON: Comparison is made with prior study dated December 05, 2011. FINDINGS: Lumbar Spine (L1-L4): g/cm2 (0.964) / T-score (-1.7) / Z-score (- 0.3) Findi ngs are suggestive of osteopenia with a moderate fracture risk. Left Femur Total: g/cm2 (0.705) / T-score (-2.4) / Z-score (-1.3) Left Femoral Neck: g/cm2 (0.704) / T-score (-2.4) / Z-score (-1.1) R ight Femur Total: g/cm2 (0.698) / T-score (-2.5) / Z-score (-1.4) Right Femoral Neck: g/cm2 (0.745) / T-score (-2.1) / Z-score (-0.8) The T-Scores on the most recent prior examination were: Lumbar Spine (L1-L4): There has been improvement of bone density since the previous examination. Left Femur Total: which represents a worsening of 5.6%. Right Femur Total: which represents a worsening of 3 .9%. IMPRESSION: The patient is considered osteopenic as outlined below according to World Edmar Organization (WHO) criteria with a moderate fracture risk. There has been worsening of bone density since the previous examination. Reference Information: The T-score is the number of standard deviations above or below the standard which is normal for young adults at their peak bone mineral density. The World Health Organization (WHO) interprets the T-scores as follows: Above -1 Normal bone density Between -1 and -2. 5 Osteopenia Equal to / or below -2.5 Osteoporosis As a practical clinical guideline, osteopenia may be graded as follows: Mild -1 through -1.5 Moderate -1.6 through -2.0 Severe -2.1 through -2.4 The Z-score is the number of standard deviations above or below age-matched controls. A Z-score of less than -1.5 would be considered abnormal. References: 1. NIH Osteoporosis and Related Bone Dis eases http://www.osteo.org 2. International Society for Clinical Densitometry http://www.iscd.org 3. National Osteoporosis Foundation http://www.nof.org Electronically Signed: Taylor Castellanos at 15:16 EDT Tel [phone], Service support [phone], CC: Allison Tovar DO Milk Delivery Driver: Signed 02-Sep-2013 PT Discharge Summary Result: Comments: See Note; NOTES: [facility] Physical [facility] [address] [place], [place] [address] Fax REHABILITATION SERVICES DISCHARGE SUMMARY MR#: [id number] Acct: [id number] Name: GREY WOMACK Rep #: [id number] : 1950 63 From: Susie Angel Referring Dr.: OUT OF TOWN DOCTOR Status: REG RCR Eval Date: Date: DATE OF SERVICE: REFERRING PHYSICIAN: ____. REFERRING DIAGNOSIS: Multiple sclerosis. HOSPITAL COURSE: Grey has been seen in our clinic for a total of 15 visits for therapeutic activities, therapeutic exercise, balance activities, core strengthening, lower extremity strengthening with a home exercise program. During her time here, we also did some gait analysis with her a nd discovered that her hip hiking was extremely weak and since we have had her doing those exercises at home, she has had major improvement with gait with decreased hip sway and increased trunk exte nsion and increased step length. At this point in time, she has a home exercise program and will continue to do so at home. I will be happy to see her in time if she feels she needs any adjustment to her program or any relapse in her MS progression. Thank you once again for the referral of Grey to our clinic. It was my pleasure to work with her. Susie Angel, PT T: NTS JOB: [id number] <Electronically signed by Susie Angel > 09/02/13 1138 CC: Signed Immunization Name Dates Details Influenza (3 years and up) on: 18-Feb-2007 Comments: Lot #: [id number] date: 09/21Amount given: 0.5 mlRoute: IMSite given: Left deltoidGiven by: Sushila Torres LPN Influenza (3 years and up) on: 21-Jan-2009 Pneumococcal (2 years and up) on: 01-Apr-2008 Comments: Lot #[id number]-left deltoidDose0.5mlgiven by Sabiha Goldstein LPN Family History Unknown Family Member Name Dates Details Brother 1 Comments: living and healthy at age 62- Status: Active Father Comments: in early 60s- heart issues - smoker Status: Active Mother Comments: living at 92- alone- really good health- mom in her mid 80s had breast cancer- and mastectomy- and her mother had breast cancer at old age as well Status: Active Social History Name Dates Details Alcohol Use Comments: Occasional alcohol use Status: Active Caffeine Use Status: Active No Drug Use Status: Active Non Smoker/No Tobacco Use Status: Active Tobacco use: Never smoker. Status: Active Smoking Status Name Dates Details Never smoker Vital Signs Date Test Result Details [id number] Temperature 96.7 f Comments: Method: Temporal Pulse 90 /min Comments: Pattern: Regular Respiration Rate 16 /min Comments: Pattern: Unlabored BP Systolic 108 mm[Hg] Comments: Patient Position: Sitting; Cuff Location: Left Arm; Cuff Size: Standard BP Diastolic 70 mm[Hg] Comments: Patient Position: Sitting; Cuff Location: Left Arm; Cuff Size: Standard Weight 130 lb Height 63 in Body Mass Index Calculated 23.03 kg/m2 Body Surface Area Calculated 1.61 m2 [id number] Temperature 97.6 f Comments: Method: Temporal Pulse 80 /min Comments: Pattern: Regular Respiration Rate 16 /min Comments: Pattern: Unlabored BP Systolic 120 mm[Hg] Comments: Patient Position: Sitting; Cuff Location: Left Arm; Cuff Size: Standard BP Diastolic 80 mm[Hg] Comments: Patient Position: Sitting; Cuff Location: Left Arm; Cuff Size: Standard Weight 130 lb Height 63 in Body Mass Index Calculated 23.03 kg/m2 Body Surface Area Calculated 1.61 m2 :26 Temperature 99.2 f Comments: Method: Temporal Pulse 83 /min Comments: Pattern: Regular Respiration Rate 16 /min Comments: Pattern: Unlabored BP Systolic 120 mm[Hg] Comments: Patient Position: Sitting; Cuff Location: Left Arm; Cuff Size: Standard BP Diastolic 78 mm[Hg] Comments: Patient Position: Sitting; Cuff Location: Left Arm; Cuff Size: Standard Weight 130 lb Height 63 in Body Mass Index Calculated 23.03 kg/m2 Body Surface Area Calculated 1.61 m2 :55 Temperature 97.2 f Comments: Method: Temporal Pulse 76 /min Comments: Pattern: Regular Respiration Rate 16 /min Comments: Pattern: Unlabored O2 SAT 97 % Comments: Room air BP Systolic 112 mm[Hg] Comments: Patient Position: Sitting; Cuff Location: Left Arm; Cuff Size: Standard BP Diastolic 70 mm[Hg] Comments: Patient Position: Sitting; Cuff Location: Left Arm; Cuff Size: Standard Weight 130 lb Height 63 in Body Mass Index Calculated 23.03 kg/m2 Body Surface Area Calculated 1.61 m2 :44 Temperature 97.4 f Comments: Method: Temporal Pulse 94 /min Comments: Pattern: Regular Respiration Rate 16 /min Comments: Pattern: Unlabored O2 SAT 98 % Comments: Room air BP Systolic 122 mm[Hg] Comments: Patient Position: Sitting; Cuff Location: Left Arm; Cuff Size: Standard BP Diastolic 80 mm[Hg] Comments: Patient Position: Sitting; Cuff Location: Left Arm; Cuff Size: Standard Weight 130 lb Height 63 in Body Mass Index Calculated 23.03 kg/m2 Body Surface Area Calculated 1.61 m2 :22 Temperature 97.9 f Comments: Method: Temporal Pulse 94 /min Comments: Pattern: Regular Respiration Rate 20 /min Comments: Pattern: Unlabored O2 SAT 98 % Comments: Room air BP Systolic 142 mm[Hg] Comments: Patient Position: Sitting; Cuff Location: Left Arm; Cuff Size: Standard BP Diastolic 84 mm[Hg] Comments: Patient Position: Sitting; Cuff Location: Left Arm; Cuff Size: Standard Weight 130 lb Height 63 in Body Mass Index Calculated 23.03 kg/m2 Body Surface Area Calculated 1.61 m2 :05 Temperature 98 f Comments: Method: Temporal Pulse 90 /min Comments: Pattern: Regular Respiration Rate 16 /min Comments: Pattern: Unlabored BP Systolic 128 mm[Hg] Comments: Patient Position: Sitting; Cuff Location: Left Arm; Cuff Size: Standard BP Diastolic 80 mm[Hg] Comments: Patient Position: Sitting; Cuff Location: Left Arm; Cuff Size: Standard Weight 130 lb Height 63 in Body Mass Index Calculated 23.03 kg/m2 Body Surface Area Calculated 1.61 m2 :39 Temperature 96.6 f Comments: Method: Temporal Pulse 103 /min Comments: Pattern: Regular Respiration Rate 16 /min Comments: Pattern: Unlabored BP Systolic 126 mm[Hg] Comments: Patient Position: Sitting; Cuff Location: Left Arm; Cuff Size: Standard BP Diastolic 72 mm[Hg] Comments: Patient Position: Sitting; Cuff Location: Left Arm; Cuff Size: Standard Weight 120 lb Height 63 in Body Mass Index Calculated 21.26 kg/m2 Body Surface Area Calculated 1.56 m2 :09 Temperature 97.5 f Comments: Method: Temporal Pulse 94 /min Comments: Pattern: Regular Respiration Rate 15 /min Comments: Pattern: Unlabored O2 SAT 97 % Comments: Room air BP Systolic 110 mm[Hg] Comments: Patient Position: Sitting; Cuff Location: Left Arm; Cuff Size: Standard BP Diastolic 76 mm[Hg] Comments: Patient Position: Sitting; Cuff Location: Left Arm; Cuff Size: Standard Weight 116 lb Height 63 in Body Mass Index Calculated 20.55 kg/m2 Body Surface Area Calculated 1.53 m2 :14 Temperature 97.4 f Comments: Method: Temporal Pulse 80 /min Comments: Pattern: Regular Respiration Rate 16 /min Comments: Pattern: Unlabored O2 SAT 96 % Comments: Room air BP Systolic 118 mm[Hg] Comments: Patient Position: Sitting; Cuff Location: Left Arm; Cuff Size: Standard BP Diastolic 80 mm[Hg] Comments: Patient Position: Sitting; Cuff Location: Left Arm; Cuff Size: Standard Weight 104 lb Height 63 in Body Mass Index Calculated 18.42 kg/m2 Body Surface Area Calculated 1.46 m2 :35 Temperature 96.8 f Comments: Method: Temporal Pulse 72 /min Comments: Pattern: Regular Respiration Rate 16 /min Comments: Pattern: Unlabored O2 SAT 98 % Comments: Room air BP Systolic 122 mm[Hg] Comments: Patient Position: Sitting; Cuff Location: Left Arm; Cuff Size: Standard BP Diastolic 80 mm[Hg] Comments: Patient Position: Sitting; Cuff Location: Left Arm; Cuff Size: Standard Weight 116 lb Height 63 in Body Mass Index Calculated 20.55 kg/m2 Body Surface Area Calculated 1.53 m2 :57 Pulse 78 /min Comments: Pattern: Regular Respiration Rate 16 /min Comments: Pattern: Unlabored BP Systolic 118 mm[Hg] Comments: Patient Position: Sitting; Cuff Location: Left Arm; Cuff Size: Standard BP Diastolic 78 mm[Hg] Comments: Patient Position: Sitting; Cuff Location: Left Arm; Cuff Size: Standard Weight 118 lb Height 63 in Body Mass Index Calculated 20.9 kg/m2 Body Surface Area Calculated 1.55 m2 :46 Temperature 97.4 f Comments: Method: Temporal Pulse 74 /min Comments: Pattern: Regular Respiration Rate 16 /min Comments: Pattern: Unlabored O2 SAT 98 % Comments: Room air BP Systolic 114 mm[Hg] Comments: Patient Position: Sitting; Cuff Location: Left Arm; Cuff Size: Standard BP Diastolic 70 mm[Hg] Comments: Patient Position: Sitting; Cuff Location: Left Arm; Cuff Size: Standard Weight 124 lb Height 63 in Body Mass Index Calculated 21.97 kg/m2 Body Surface Area Calculated 1.58 m2 :59 Temperature 97.6 f Comments: Method: Temporal Pulse 72 /min Comments: Pattern: Regular Respiration Rate 15 /min Comments: Pattern: Unlabored O2 SAT 97 % Comments: Room air BP Systolic 130 mm[Hg] Comments: Patient Position: Sitting; Cuff Location: Left Arm; Cuff Size: Standard BP Diastolic 66 mm[Hg] Comments: Patient Position: Sitting; Cuff Location: Left Arm; Cuff Size: Standard Weight 123 lb Height 63 in Body Mass Index Calculated 21.79 kg/m2 Body Surface Area Calculated 1.57 m2 :44 Temperature 98.6 f Comments: Method: Temporal Pulse 84 /min Comments: Pattern: Regular Respiration Rate 16 /min Comments: Pattern: Unlabored O2 SAT 98 % Comments: Room air BP Systolic 118 mm[Hg] Comments: Patient Position: Sitting; Cuff Location: Left Arm; Cuff Size: Standard BP Diastolic 84 mm[Hg] Comments: Patient Position: Sitting; Cuff Location: Left Arm; Cuff Size: Standard Weight 116 lb Height 63 in Body Mass Index Calculated 20.55 kg/m2 Body Surface Area Calculated 1.53 m2 :14 Temperature 96.8 f Comments: Method: Oral Pulse 94 /min Comments: Pattern: Regular Respiration Rate 16 /min Comments: Pattern: Unlabored BP Systolic 122 mm[Hg] Comments: Patient Position: Sitting; Cuff Location: Left Arm; Cuff Size: Standard BP Diastolic 78 mm[Hg] Comments: Patient Position: Sitting; Cuff Location: Left Arm; Cuff Size: Standard Weight 115 lb Height 63 in Body Mass Index Calculated 20.37 kg/m2 Body Surface Area Calculated 1.53 m2 :47 BP Systolic 128 mm[Hg] Comments: Patient Position: Sitting; Cuff Location: Left Arm; Cuff Size: Standard BP Diastolic 76 mm[Hg] Comments: Patient Position: Sitting; Cuff Location: Left Arm; Cuff Size: Standard :34 Temperature 98.8 f Comments: Method: Oral Pulse 100 /min Comments: Pattern: Regular Respiration Rate 16 /min Comments: Pattern: Unlabored BP Systolic 150 mm[Hg] Comments: Patient Position: Sitting; Cuff Location: Left Arm; Cuff Size: Standard BP Diastolic 94 mm[Hg] Comments: Patient Position: Sitting; Cuff Location: Left Arm; Cuff Size: Standard Weight 114 lb Height 63 in Body Mass Index Calculated 20.19 kg/m2 Body Surface Area Calculated 1.52 m2 :45 Temperature 98.2 f Comments: Method: Oral Pulse 82 /min Comments: Pattern: Regular Respiration Rate 15 /min O2 SAT 98 % Comments: Room air BP Systolic 144 mm[Hg] Comments: Patient Position: Sitting; Cuff Location: Left Arm; Cuff Size: Standard BP Diastolic 82 mm[Hg] Comments: Patient Position: Sitting; Cuff Location: Left Arm; Cuff Size: Standard Weight 112 lb Height 63 in Body Mass Index Calculated 19.84 kg/m2 Body Surface Area Calculated 1.51 m2 :22 Temperature 97.5 f Comments: Method: Oral Pulse 78 /min Comments: Pattern: Regular Respiration Rate 15 /min O2 SAT 98 % Comments: Room air BP Systolic 142 mm[Hg] Comments: Patient Position: Sitting; Cuff Location: Left Arm; Cuff Size: Standard BP Diastolic 82 mm[Hg] Comments: Patient Position: Sitting; Cuff Location: Left Arm; Cuff Size: Standard Weight 112 lb Height 63 in Body Mass Index Calculated 19.84 kg/m2 Body Surface Area Calculated 1.51 m2 :41 Temperature 97.1 f Pulse 88 /min Comments: Pattern: Regular Respiration Rate 16 /min Comments: Pattern: Unlabored BP Systolic 124 mm[Hg] Comments: Patient Position: Sitting; Cuff Location: Left Arm; Cuff Size: Standard BP Diastolic 80 mm[Hg] Comments: Patient Position: Sitting; Cuff Location: Left Arm; Cuff Size: Standard Weight 112 lb Height 63 in Body Mass Index Calculated 19.84 kg/m2 Body Surface Area Calculated 1.51 m2 :26 BP Systolic 140 mm[Hg] Comments: Patient Position: Sitting BP Diastolic 92 mm[Hg] Comments: Patient Position: Sitting :30 Temperature 97.6 f Pulse 86 /min Comments: Pattern: Regular Respiration Rate 16 /min Comments: Pattern: Unlabored BP Systolic 152 mm[Hg] Comments: Patient Position: Sitting; Cuff Location: Left Arm; Cuff Size: Standard BP Diastolic 86 mm[Hg] Comments: Patient Position: Sitting; Cuff Location: Left Arm; Cuff Size: Standard Weight 114 lb Height 63 in Body Mass Index Calculated 20.19 kg/m2 Body Surface Area Calculated 1.52 m2 :25 Temperature 98.7 f Pulse 68 /min Comments: Pattern: Regular Respiration Rate 16 /min Comments: Pattern: Unlabored BP Systolic 120 mm[Hg] Comments: Patient Position: Sitting; Cuff Location: Left Arm; Cuff Size: Standard BP Diastolic 74 mm[Hg] Comments: Patient Position: Sitting; Cuff Location: Left Arm; Cuff Size: Standard Height 63 in :22 Temperature 97.7 f Pulse 96 /min Comments: Pattern: Regular Respiration Rate 16 /min Comments: Pattern: Unlabored BP Systolic 128 mm[Hg] Comments: Patient Position: Sitting; Cuff Location: Left Arm; Cuff Size: Standard BP Diastolic 86 mm[Hg] Comments: Patient Position: Sitting; Cuff Location: Left Arm; Cuff Size: Standard Weight 111 lb Height 63 in Body Mass Index Calculated 19.66 kg/m2 Body Surface Area Calculated 1.51 m2 :52 BP Systolic 114 mm[Hg] Comments: Patient Position: Sitting; Cuff Location: Left Arm; Cuff Size: Standard BP Diastolic 80 mm[Hg] Comments: Patient Position: Sitting; Cuff Location: Left Arm; Cuff Size: Standard :59 BP Systolic 110 mm[Hg] Comments: Patient Position: Sitting; Cuff Location: Right Arm; Cuff Size: Standard BP Diastolic 78 mm[Hg] Comments: Patient Position: Sitting; Cuff Location: Right Arm; Cuff Size: Standard :53 Temperature 98.1 f Pulse 84 /min Comments: Pattern: Regular Respiration Rate 18 /min Comments: Pattern: Unlabored BP Systolic 134 mm[Hg] Comments: Patient Position: Sitting; Cuff Location: Left Arm; Cuff Size: Standard BP Diastolic 92 mm[Hg] Comments: Patient Position: Sitting; Cuff Location: Left Arm; Cuff Size: Standard Weight 111 lb Height 63 in Body Mass Index Calculated 19.66 kg/m2 Body Surface Area Calculated 1.51 m2 :30 Temperature 98.4 f Comments: Method: Oral Pulse 88 /min Comments: Pattern: Regular Respiration Rate 17 /min O2 SAT 98 % Comments: Room air BP Systolic 120 mm[Hg] Comments: Patient Position: Sitting; Cuff Location: Left Arm; Cuff Size: Standard BP Diastolic 78 mm[Hg] Comments: Patient Position: Sitting; Cuff Location: Left Arm; Cuff Size: Standard Weight 115 lb Height 63 in Body Mass Index Calculated 20.37 kg/m2 Body Surface Area Calculated 1.53 m2 :30 Pulse 80 /min Comments: Pattern: Regular Respiration Rate 16 /min Comments: Pattern: Unlabored Weight 115 lb Height 63 in Body Mass Index Calculated 20.37 kg/m2 Body Surface Area Calculated 1.53 m2 :59 Temperature 97 f Pulse 84 /min Comments: Pattern: Regular Respiration Rate 16 /min Comments: Pattern: Unlabored BP Systolic 128 mm[Hg] Comments: Patient Position: Sitting; Cuff Location: Left Arm; Cuff Size: Standard BP Diastolic 72 mm[Hg] Comments: Patient Position: Sitting; Cuff Location: Left Arm; Cuff Size: Standard Weight 115 lb Height 63 in Body Mass Index Calculated 20.37 kg/m2 Body Surface Area Calculated 1.53 m2 :32 Temperature 97.3 f Comments: Method: Oral Pulse 86 /min Comments: Pattern: Regular O2 SAT 96 % Comments: Room air BP Systolic 134 mm[Hg] Comments: Patient Position: Sitting; Cuff Location: Left Arm; Cuff Size: Standard BP Diastolic 80 mm[Hg] Comments: Patient Position: Sitting; Cuff Location: Left Arm; Cuff Size: Standard Weight 117 lb Height 63 in Body Mass Index Calculated 20.73 kg/m2 Body Surface Area Calculated 1.54 m2 :52 Temperature 97 f Comments: Method: Oral Pulse 90 /min Comments: Pattern: Regular Respiration Rate 18 /min Comments: Pattern: Unlabored O2 SAT 98 % Comments: Room air BP Systolic 136 mm[Hg] Comments: Patient Position: Sitting; Cuff Location: Left Arm; Cuff Size: Standard BP Diastolic 76 mm[Hg] Comments: Patient Position: Sitting; Cuff Location: Left Arm; Cuff Size: Standard Weight 117 lb Height 63 in Body Mass Index Calculated 20.73 kg/m2 Body Surface Area Calculated 1.54 m2 :17 Temperature 97.1 f Comments: Method: Oral Pulse 78 /min Comments: Pattern: Regular Respiration Rate 18 /min Comments: Pattern: Unlabored BP Systolic 130 mm[Hg] Comments: Patient Position: Sitting; Cuff Location: Left Arm; Cuff Size: Standard BP Diastolic 80 mm[Hg] Comments: Patient Position: Sitting; Cuff Location: Left Arm; Cuff Size: Standard Weight 117 lb Height 63 in Body Mass Index Calculated 20.73 kg/m2 Body Surface Area Calculated 1.54 m2 :50 Temperature 97 f Pulse 76 /min Comments: Pattern: Regular Respiration Rate 18 /min Comments: Pattern: Unlabored BP Systolic 132 mm[Hg] Comments: Patient Position: Sitting; Cuff Location: Left Arm; Cuff Size: Standard BP Diastolic 88 mm[Hg] Comments: Patient Position: Sitting; Cuff Location: Left Arm; Cuff Size: Standard Weight 117 lb :16 Pulse 84 /min Comments: Pattern: Regular Respiration Rate 18 /min Comments: Pattern: Unlabored BP Systolic 114 mm[Hg] Comments: Patient Position: Sitting; Cuff Location: Left Arm; Cuff Size: Standard BP Diastolic 68 mm[Hg] Comments: Patient Position: Sitting; Cuff Location: Left Arm; Cuff Size: Standard :05 Temperature 95.8 f Pulse 92 /min Comments: Pattern: Regular Respiration Rate 18 /min Comments: Pattern: Unlabored BP Systolic 118 mm[Hg] Comments: Patient Position: Sitting; Cuff Location: Right Arm; Cuff Size: Standard BP Diastolic 64 mm[Hg] Comments: Patient Position: Sitting; Cuff Location: Right Arm; Cuff Size: Standard Weight 116 lb :43 Temperature 97.2 f Comments: Method: Undefined Pulse 80 /min Comments: Pattern: Regular Respiration Rate 18 /min Comments: Pattern: Undefined BP Systolic 128 mm[Hg] Comments: Patient Position: Sitting; Cuff Location: Left Arm; Cuff Size: Large BP Diastolic 86 mm[Hg] Comments: Patient Position: Sitting; Cuff Location: Left Arm; Cuff Size: Large Weight 114 lb Height 0 in Head Circumference 0.00 cm :58 Temperature 96.5 f Comments: Method: Undefined Pulse 88 /min Comments: Pattern: Regular Respiration Rate 18 /min Comments: Pattern: Unlabored BP Systolic 122 mm[Hg] Comments: Patient Position: Sitting; Cuff Location: Right Arm; Cuff Size: Standard BP Diastolic 74 mm[Hg] Comments: Patient Position: Sitting; Cuff Location: Right Arm; Cuff Size: Standard Weight 115 lb Height 0 in Head Circumference 0.00 cm :39 Temperature 95.6 f Comments: Method: Undefined Pulse 88 /min Comments: Pattern: Regular Respiration Rate 16 /min Comments: Pattern: Undefined BP Systolic 124 mm[Hg] Comments: Patient Position: Sitting; Cuff Location: Right Arm; Cuff Size: Standard BP Diastolic 88 mm[Hg] Comments: Patient Position: Sitting; Cuff Location: Right Arm; Cuff Size: Standard Weight 113 lb Height 0 in Head Circumference 0.00 cm Results Date Description Value Details :53 LIPID PANEL (64072) Comments: PATIENT WAS FASTINGPERFORMED BY: AR[facility] Qaikpq1513 [facility] [id number]; fu 10-5 DF LDL/HDL Ratio 1.8 {ratio} (Normal) Range: 0.0-3.2 Comments: LDL/HDL Ratio Men Women 1/2 Avg.Risk 1.0 1.5 Av g.Risk 3.6 3.2 2X Avg.Risk 6.2 5.0 3X Avg.Risk 8.0 6.1 LDL Cholesterol Calc 133 mg/dL (Abnormal) Range: 0-99 VLDL Cholesterol Ben 15 mg/dL (Normal) Range: 5-40 HDL Cholesterol 72 mg/dL (Normal) Triglycerides 76 mg/dL (Normal) Range: 0-149 Cholesterol, Total 220 mg/dL (Abnormal) Range: 100-199 7-Bfm-860990:53 CBC (AUTO) (05091) Comments: PATIENT WAS FASTINGPERFORMED BY: [facility]6370 [facility] [id number] Platelets 300 {x10E3/uL} (Normal) Range: 150-379 RDW 13.9 % (Normal) Range: 12.3-15.4 MCHC 33.2 g/dL (Normal) Range: 31.5-35.7 MCH 29.9 pg (Normal) Range: 26.6-33.0 MCV 90 fL (Normal) Range: 79-97 Hematocrit 38.9 % (Normal) Range: 34.0-46.6 Hemoglobin 12.9 g/dL (Normal) Range: 11.1-15.9 RBC 4.32 {x10E6/uL} (Normal) Range: 3.77-5.28 WBC 7.3 {x10E3/uL} (Normal) Range: 3.4-10.8 :53 Vitamin D Hydroxy (34359) Comments: PATIENT WAS FASTINGPERFORMED BY: [facility]6370 [facility] [id number] Vitamin D, 25-Hydroxy 66.8 ng/mL (Normal) Range: 30.0-100.0 Comments: Vitamin D deficiency has been defined by the Thayer of[facility] and an Endocrine Society practice guideline as alevel of serum 25-OH vitamin D less than 20 ng/mL (1,2).The Endocrine Society went on to further define vitamin Dinsufficiency as a level between 21 and 29 ng/mL (2).1. IOM (Thayer of Medicine). 2010. Dietary reference intakes for calcium and D. [place]: The National Academies Press.2. Tylor MF, [place], Magan MARIE, et al. Evaluation, treatment, and prevention of vitamin D deficiency: an Endocrine Society clinical practice guideline. JCEM. 2010; 96(7):1911-30. :53 METABOLIC PANEL, COMPREHENSIVE Comments: PATIENT WAS FASTINGPERFORMED BY: [facility]6370 [facility] [id number] (25913) ALT (SGPT) 14 [iU]/L (Normal) Range: 0-32 AST (SGOT) 20 [iU]/L (Normal) Range: 0-40 Alkaline Phosphatase 88 [iU]/L (Normal) Range: 39-117 Bilirubin, Total <0.2 mg/dL (Normal) Range: 0.0-1.2 A/G Ratio 2.0 (Normal) Range: 1.2-2.2 Globulin, Total 2.3 g/dL (Normal) Range: 1.5-4.5 Albumin 4.7 g/dL (Normal) Range: 3.6-4.8 Protein, Total 7.0 g/dL (Normal) Range: 6.0-8.5 Calcium 9.8 mg/dL (Normal) Range: 8.7-10.3 Carbon Dioxide, Total 20 mmol/L (Normal) Range: 20-29 Chloride 104 mmol/L (Normal) Range: 96-106 Potassium 4.7 mmol/L (Normal) Range: 3.5-5.2 Sodium 144 mmol/L (Normal) Range: 134-144 BUN/Creatinine Ratio 27 (Normal) Range: 12-28 eGFR If Africn Am 85 mL/min/1.73 (Normal) eGFR If NonAfricn Am 74 mL/min/1.73 (Normal) Creatinine 0.83 mg/dL (Normal) Range: 0.57-1.00 BUN 22 mg/dL (Normal) Range: 8-27 Glucose 89 mg/dL (Normal) Range: 65-99 5-Awc-940204:22 CBC W/AUTO DIFF WBC (04841) Comments: PATIENT NOT FASTINGPERFORMED BY: [facility] Olwith7036 [facility] [id number] Immature Grans (Abs) 0.0 {x10E3/uL} (Normal) Range: 0.0-0.1 Immature Granulocytes 0 % (Normal) Baso (Absolute) 0.0 {x10E3/uL} (Normal) Range: 0.0-0.2 Eos (Absolute) 0.1 {x10E3/uL} (Normal) Range: 0.0-0.4 Monocytes(Absolute) 0.5 {x10E3/uL} (Normal) Range: 0.1-0.9 Lymphs (Absolute) 1.9 {x10E3/uL} (Normal) Range: 0.7-3.1 Neutrophils (Absolute) 6.0 {x10E3/uL} (Normal) Range: 1.4-7.0 Basos 0 % (Normal) Eos 1 % (Normal) Monocytes 6 % (Normal) Lymphs 22 % (Normal) Neutrophils 71 % (Normal) Platelets 346 {x10E3/uL} (Normal) Range: 150-379 RDW 13.8 % (Normal) Range: 12.3-15.4 MCHC 32.9 g/dL (Normal) Range: 31.5-35.7 MCH 30.6 pg (Normal) Range: 26.6-33.0 MCV 93 fL (Normal) Range: 79-97 Hematocrit 40.7 % (Normal) Range: 34.0-46.6 Hemoglobin 13.4 g/dL (Normal) Range: 11.1-15.9 RBC 4.38 {x10E6/uL} (Normal) Range: 3.77-5.28 WBC 8.5 {x10E3/uL} (Normal) Range: 3.4-10.8 0-Ljk-983763:22 METABOLIC PANEL, COMPREHENSIVE Comments: PATIENT NOT FASTINGPERFORMED BY: [facility]CoCentraState [facility] SystemPzgluh4734 [facility] [id number]; review at 09/05 appt (05769) ALT (SGPT) 15 [iU]/L (Normal) Range: 0-32 AST (SGOT) 19 [iU]/L (Normal) Range: 0-40 Alkaline Phosphatase 99 [iU]/L (Normal) Range: 39-117 Bilirubin, Total 0.2 mg/dL (Normal) Range: 0.0-1.2 A/G Ratio 2.2 (Normal) Range: 1.2-2.2 Globulin, Total 2.2 g/dL (Normal) Range: 1.5-4.5 Albumin 4.8 g/dL (Normal) Range: 3.6-4.8 Protein, Total 7.0 g/dL (Normal) Range: 6.0-8.5 Calcium 9.9 mg/dL (Normal) Range: 8.7-10.3 Carbon Dioxide, Total 22 mmol/L (Normal) Range: 18-29 Chloride 103 mmol/L (Normal) Range: 96-106 Potassium 4.3 mmol/L (Normal) Range: 3.5-5.2 Sodium 143 mmol/L (Normal) Range: 134-144 BUN/Creatinine Ratio 29 (Abnormal) Range: 12-28 eGFR If Africn Am 75 mL/min/1.73 (Normal) eGFR If NonAfricn Am 65 mL/min/1.73 (Normal) Creatinine 0.92 mg/dL (Normal) Range: 0.57-1.00 BUN 27 mg/dL (Normal) Range: 8-27 Glucose 101 mg/dL (Abnormal) Range: 65-99 35-Rsk-033357:54 Vitamin D Hydroxy (31070) Comments: PATIENT WAS FASTINGPERFORMED BY: [employer]6370 [facility] [id number] Vitamin D, 25-Hydroxy 70.6 ng/mL (Normal) Range: 30.0-100.0 Comments: Vitamin D deficiency has been defined by the Thayer ofMedicine and an Endocrine Society practice guideline as alevel of serum 25-OH vitamin D less than 20 ng/mL (1,2).The Endocrine Society went on to further define vitamin Dinsufficiency as a level between 21 and 29 ng/mL (2).1. IOM (Thayer of Medicine). 2010. Dietary reference intakes for calcium and D. [place]: The National Academies Press.2. Tylor MF, [place], Magan MARIE, et al. Evaluation, treatment, and prevention of vitamin D deficiency: an Endocrine Society clinical practice guideline. JCEM. 2010; 96(7):1911-30. 90-Zrt-119035:54 LIPID PANEL (62067) Comments: PATIENT WAS FASTINGPERFORMED BY: [place] DistilleryCentraState Healthcare SystemFksjlr0128 [facility] [id number]; can review on 1/2 LDL/HDL Ratio 1.7 {ratio_units} (Normal) Range: 0.0-3.2 Comments: LDL/HDL Ratio Men Women 1/2 Avg.Risk 1.0 1.5 Av g.Risk 3.6 3.2 2X Avg.Risk 6.2 5.0 3X Avg.Risk 8.0 6.1 LDL Cholesterol Calc 129 mg/dL (Abnormal) Range: 0-99 VLDL Cholesterol Ben 17 mg/dL (Normal) Range: 5-40 HDL Cholesterol 78 mg/dL (Normal) Triglycerides 84 mg/dL (Normal) Range: 0-149 Cholesterol, Total 224 mg/dL (Abnormal) Range: 100-199 60-Mti-202398:54 CBC W/AUTO DIFF WBC (18962) Comments: PATIENT WAS FASTINGPERFORMED BY: [employer] [facility] [id number] Immature Grans (Abs) 0.0 {x10E3/uL} (Normal) Range: 0.0-0.1 Immature Granulocytes 0 % (Normal) Baso (Absolute) 0.0 {x10E3/uL} (Normal) Range: 0.0-0.2 Eos (Absolute) 0.0 {x10E3/uL} (Normal) Range: 0.0-0.4 Monocytes(Absolute) 0.6 {x10E3/uL} (Normal) Range: 0.1-0.9 Lymphs (Absolute) 1.8 {x10E3/uL} (Normal) Range: 0.7-3.1 Neutrophils (Absolute) 7.1 {x10E3/uL} (Abnormal) Range: 1.4-7.0 Basos 0 % (Normal) Eos 0 % (Normal) Monocytes 6 % (Normal) Lymphs 19 % (Normal) Neutrophils 75 % (Normal) Platelets 329 {x10E3/uL} (Normal) Range: 150-379 RDW 13.7 % (Normal) Range: 12.3-15.4 MCHC 33.3 g/dL (Normal) Range: 31.5-35.7 MCH 31.4 pg (Normal) Range: 26.6-33.0 MCV 94 fL (Normal) Range: 79-97 Hematocrit 40.3 % (Normal) Range: 34.0-46.6 Hemoglobin 13.4 g/dL (Normal) Range: 11.1-15.9 RBC 4.27 {x10E6/uL} (Normal) Range: 3.77-5.28 WBC 9.5 {x10E3/uL} (Normal) Range: 3.4-10.8 48-Ezc-439806:54 METABOLIC PANEL, COMPREHENSIVE Comments: PATIENT WAS FASTINGPERFORMED BY: [place] DistilleryCentraState Healthcare SystemDgstmt7221 [facility] [id number] (03832) ALT (SGPT) 23 [iU]/L (Normal) Range: 0-32 AST (SGOT) 22 [iU]/L (Normal) Range: 0-40 Alkaline Phosphatase, S 96 [iU]/L (Normal) Range: 39-117 Bilirubin, Total 0.3 mg/dL (Normal) Range: 0.0-1.2 A/G Ratio 1.9 (Normal) Range: 1.2-2.2 Globulin, Total 2.4 g/dL (Normal) Range: 1.5-4.5 Albumin, Serum 4.5 g/dL (Normal) Range: 3.6-4.8 Protein, Total, Serum 6.9 g/dL (Normal) Range: 6.0-8.5 Calcium, Serum 9.9 mg/dL (Normal) Range: 8.7-10.3 Carbon Dioxide, Total 24 mmol/L (Normal) Range: 18-29 Chloride, Serum 99 mmol/L (Normal) Range: 96-106 Potassium, Serum 4.8 mmol/L (Normal) Range: 3.5-5.2 Sodium, Serum 141 mmol/L (Normal) Range: 134-144 BUN/Creatinine Ratio 28 (Normal) Range: 12-28 eGFR If Africn Am 79 mL/min/1.73 (Normal) eGFR If NonAfricn Am 68 mL/min/1.73 (Normal) Creatinine, Serum 0.89 mg/dL (Normal) Range: 0.57-1.00 BUN 25 mg/dL (Normal) Range: 8-27 Glucose, Serum 80 mg/dL (Normal) Range: 65-99 60-Oau-731511:5 BUN 22 mg/dL (Abnormal) Comments: [facility] [address] [place], [place], [address] 9 Range: 7-18 75-Pct-445116:59 Serum Creatinine AND GFR Comments: [facility] [address] [place], [place], [address] EST GFR - AA 85 mL/min (Normal) Comments: GFR Calc EST GFR 70 mL/min (Normal) Comments: Non- GFR Calc CREAT,SERUM 0.86 mg/dL (Normal) Range: 0.55-1.02 Comments: The validity of the calculated GFR AND GFRAA in patients over70 years has not been determined. Clinical correlation isessential. 83-Yfh-822579:16 COLON BIOPSY (CHOOSE See Note (Normal) Comments: [facility] [address] [place], [place], [id number] SITE) Comments: Patient: GREY WOMACK : 1950 (66/F) Acct Num: [id number] Phys: Mookie Campoverde Unit Num: [id number] Loc: LABSPEC Specimen: Received: 09/12/161616 Spec Type: C OLON BX TISSUES TISSUES: GROSS DESCRIPTION Received is one container labeled with the patient's name and designated splenic flexure polyp. The specimen consists of two irregular fr agments of light bell soft tissue that in aggregate measure 0.5 x 0.4 x 0.2 cm. The specimen is totally submitted in one cassette. / RY:cy 09/13/16 TC:1 CPT: 11558 HEADER OPERATION: Colonoscopy with polypectomy PRE-OP DIAGNOSIS: Positive Cologuard TISSUE SUBMITTED: Splenic flexure polyp, rule out adenoma MICROSCOPIC DESCRIPTION Slides are reviewed. MICROSCOPIC DIAGNOSIS Splen ic flexure polyp, polypectomy: Tubular adenoma. Fragment of fecal material. SJ:cy 09/14/16 Signed Lenny Jackson 09/14/16 <signature on file> 59-Ceb-738173:15 CBC W/AUTO DIFF WBC (46458) Comments: PATIENT WAS FASTINGPERFORMED BY: [facility] Dsjkxp2011 [facility] [id number] Immature Grans (Abs) 0.0 {x10E3/uL} (Normal) Range: 0.0-0.1 Immature Granulocytes 0 % (Normal) Baso (Absolute) 0.0 {x10E3/uL} (Normal) Range: 0.0-0.2 Eos (Absolute) 0.0 {x10E3/uL} (Normal) Range: 0.0-0.4 Monocytes(Absolute) 0.6 {x10E3/uL} (Normal) Range: 0.1-0.9 Lymphs (Absolute) 1.6 {x10E3/uL} (Normal) Range: 0.7-3.1 Neutrophils (Absolute) 6.6 {x10E3/uL} (Normal) Range: 1.4-7.0 Basos 0 % (Normal) Eos 0 % (Normal) Monocytes 7 % (Normal) Lymphs 19 % (Normal) Neutrophils 74 % (Normal) Platelets 300 {x10E3/uL} (Normal) Range: 150-379 RDW 13.9 % (Normal) Range: 12.3-15.4 MCHC 33.2 g/dL (Normal) Range: 31.5-35.7 MCH 31.0 pg (Normal) Range: 26.6-33.0 MCV 94 fL (Normal) Range: 79-97 Hematocrit 40.7 % (Normal) Range: 34.0-46.6 Hemoglobin 13.5 g/dL (Normal) Range: 11.1-15.9 RBC 4.35 {x10E6/uL} (Normal) Range: 3.77-5.28 WBC 8.9 {x10E3/uL} (Normal) Range: 3.4-10.8 95-Hyn-387298:15 LIPID PANEL (63131) Comments: PATIENT WAS FASTINGPERFORMED BY: [facility] [id number] LDL/HDL Ratio 1.6 {ratio_units} (Normal) Range: 0.0-3.2 Comments: LDL/HDL Ratio Men Women 1/2 Avg.Risk 1.0 1.5 Av g.Risk 3.6 3.2 2X Avg.Risk 6.2 5.0 3X Avg.Risk 8.0 6.1 LDL Cholesterol Calc 107 mg/dL (Abnormal) Range: 0-99 VLDL Cholesterol Ben 19 mg/dL (Normal) Range: 5-40 HDL Cholesterol 69 mg/dL (Normal) Triglycerides 93 mg/dL (Normal) Range: 0-149 Cholesterol, Total 195 mg/dL (Normal) Range: 100-199 49-Vbv-777123:15 Vitamin D Hydroxy (55886) Comments: PATIENT WAS FASTINGPERFORMED BY: [employer]6370 [facility] [id number] Vitamin D, 25-Hydroxy 59.3 ng/mL (Normal) Range: 30.0-100.0 Comments: Vitamin D deficiency has been defined by the Thayer ofMedicine and an Endocrine Society practice guideline as alevel of serum 25-OH vitamin D less than 20 ng/mL (1,2).The Endocrine Society went on to further define vitamin Dinsufficiency as a level between 21 and 29 ng/mL (2).1. IOM (Thayer of Medicine). 2010. Dietary reference intakes for calcium and D. [place]: The National Academies Press.2. Tylor MF, [place] MAYNARD, Magan MARIE, et al. Evaluation, treatment, and prevention of vitamin D deficiency: an Endocrine Society clinical practice guideline. JCEM. 2010; 96(7):1911-30. 33-Hjm-259447:15 METABOLIC PANEL, COMPREHENSIVE Comments: PATIENT WAS FASTINGPERFORMED BY: [facility]6370 [facility] [id number]; can review on 12/12 (01757) ALT (SGPT) 14 [iU]/L (Normal) Range: 0-32 AST (SGOT) 20 [iU]/L (Normal) Range: 0-40 Alkaline Phosphatase, S 92 [iU]/L (Normal) Range: 39-117 Bilirubin, Total 0.3 mg/dL (Normal) Range: 0.0-1.2 A/G Ratio 1.9 (Normal) Range: 1.2-2.2 Globulin, Total 2.3 g/dL (Normal) Range: 1.5-4.5 Albumin, Serum 4.4 g/dL (Normal) Range: 3.6-4.8 Protein, Total, Serum 6.7 g/dL (Normal) Range: 6.0-8.5 Calcium, Serum 10.0 mg/dL (Normal) Range: 8.7-10.3 Carbon Dioxide, Total 23 mmol/L (Normal) Range: 18-29 Chloride, Serum 105 mmol/L (Normal) Range: 96-106 Potassium, Serum 4.3 mmol/L (Normal) Range: 3.5-5.2 Sodium, Serum 144 mmol/L (Normal) Range: 134-144 BUN/Creatinine Ratio 23 (Normal) Range: 12-28 eGFR If Africn Am 78 mL/min/1.73 (Normal) eGFR If NonAfricn Am 67 mL/min/1.73 (Normal) Creatinine, Serum 0.90 mg/dL (Normal) Range: 0.57-1.00 BUN 21 mg/dL (Normal) Range: 8-27 Glucose, Serum 86 mg/dL (Normal) Range: 65-99 19-Igk-573880:15 HEPATITIS C ANTIBODY (86672) Comments: PATIENT WAS FASTINGPERFORMED BY: [employer] Ctvmpa7890 [facility] [id number] Hep C Virus Ab <0.1 {s/co_ratio} (Normal) Range: 0.0-0.9 Comments: Negative: < 0.8 Indeterminate: 0.8 - 0.9 Positive: > 0.9 . The CDC recommends that a positive HCV antibody result be followed up with a HCV Nucleic Acid Amplification test (521527). 32-Xox-816747:09 URINE SULAIMAN CULTURE (LEWIS Comments: PATIENT NOT FASTINGPERFORMED BY: [facility]6370 [facility] [id number] Information: SRC: COL COUNT) (77547) Result 1 MUG (Normal) Comments: Mixed urogenital flora2,000 Colonies/mL Urine Culture,Comprehensive Final report (Normal) 88-Uld-295924:08 Creatine Kinase Total (35178) Comments: PATIENT NOT FASTINGPERFORMED BY: [facility]6370 [facility] [id number] Creatine Kinase,Total,Serum 121 U/L (Normal) Range: 24-173 44-Xnc-360033:08 RHEUMATOID FACTOR-QUANT (40955) Comments: PATIENT NOT FASTINGPERFORMED BY: [facility]6370 [facility] [id number] RA Latex Turbid. <10.0 {IU/mL} (Normal) Range: 0.0-13.9 12-Ipj-855840:08 KELIN (ANTINUCLEAR ANTIBODY) Comments: PATIENT NOT FASTINGPERFORMED BY: [facility]6370 [facility] [id number] (63195) KELIN Direct Negative (Normal) 51-Zgu-395133:08 C-REACTIVE PROTEIN (77683) Comments: PATIENT NOT FASTINGPERFORMED BY: [facility]6370 [facility] [id number] C-Reactive Protein, Quant 1.2 mg/L (Normal) Range: 0.0-4.9 :08 SED RATE ERYTHROCYTE (53305) Comments: PATIENT NOT FASTINGPERFORMED BY: [facility] Mhvtxy1662 [facility] [id number] Sedimentation Rate-Westergren 5 mm/h (Normal) Range: 0-40 :08 CALCIUM SERUM (96505) Comments: PATIENT NOT FASTINGPERFORMED BY: [facility] Kwpshm9641 [facility] [id number] Calcium, Serum 9.5 mg/dL (Normal) Range: 8.7-10.3 :13 Urine Culture,Comprehensive Comments: PATIENT NOT FASTINGPERFORMED BY: F2GCo Fjpnyp7947 [facility] [id number] Information: SRC:UR Result 1 ECV (Abnormal) Comments: Escherichia coli, identified by an automated biochemical system.300 Colonies/mLMixed urogenital flora5,000 Colonies/mL S = Susceptible; I = Intermediate; R = Resistant P = Positive; N = Negative MICS are expressed in micrograms per mL Antibiotic RSLT#1 RSLT#2 RSLT#3 RSLT#4Amoxicillin/Clavulanic Acid SAmpicillin SCefepime SCeftriaxone SCefuroxime SCephalothin ICiprofloxacin SErtapenem SGentamici n SImipenem SLevofloxacin SNitrofurantoin SPiperacillin STetracycline STobramycin STrimethoprim/Sulfa S Urine Final report Culture,Comprehensi (Abnormal) ve :49 Calcium Serum (20615) Comments: 10 days; PATIENT NOT FASTINGPERFORMED BY: [facility] Jvzzij6373 [facility] [id number] Calcium, Serum 9.5 mg/dL (Normal) Range: 8.7-10.3 :55 VITAMIN B-12 (CYANOCOBALAMIN) Comments: PATIENT NOT FASTINGPERFORMED BY: [facility] Jpabxd8734 [facility] [id number] (66662) Vitamin B12 856 pg/mL (Normal) Range: 211-946 :55 TSH (83767) Comments: PATIENT NOT FASTINGPERFORMED BY: [facility]6370 [facility] [id number] TSH 1.770 {uIU/mL} (Normal) Range: 0.450-4.500 :55 CBC with auto diff (64586) Comments: PATIENT NOT FASTINGPERFORMED BY: [facility]6370 [facility] [id number] Immature Grans (Abs) 0.0 {x10E3/uL} (Normal) Range: 0.0-0.1 Immature Granulocytes 0 % (Normal) Baso (Absolute) 0.0 {x10E3/uL} (Normal) Range: 0.0-0.2 Eos (Absolute) 0.1 {x10E3/uL} (Normal) Range: 0.0-0.4 Monocytes(Absolute) 0.7 {x10E3/uL} (Normal) Range: 0.1-0.9 Lymphs (Absolute) 1.1 {x10E3/uL} (Normal) Range: 0.7-3.1 Neutrophils (Absolute) 5.5 {x10E3/uL} (Normal) Range: 1.4-7.0 Basos 0 % (Normal) Eos 2 % (Normal) Monocytes 9 % (Normal) Lymphs 15 % (Normal) Neutrophils 74 % (Normal) Platelets 271 {x10E3/uL} (Normal) Range: 150-379 RDW 13.6 % (Normal) Range: 12.3-15.4 MCHC 34.1 g/dL (Normal) Range: 31.5-35.7 MCH 32.6 pg (Normal) Range: 26.6-33.0 MCV 95 fL (Normal) Range: 79-97 Hematocrit 37.2 % (Normal) Range: 34.0-46.6 Hemoglobin 12.7 g/dL (Normal) Range: 11.1-15.9 RBC 3.90 {x10E6/uL} (Normal) Range: 3.77-5.28 WBC 7.4 {x10E3/uL} (Normal) Range: 3.4-10.8 :55 METABOLIC PANEL, COMPREHENSIVE Comments: PATIENT NOT FASTINGPERFORMED BY: ARMIN [facility]CoCent[facility]State Healthcare SystemXstbwt1007 [facility] [id number] ([id number]) ALT (SGPT) 20 [iU]/L (Normal) Range: 0-32 AST (SGOT) 20 [iU]/L (Normal) Range: 0-40 Alkaline Phosphatase, S 76 [iU]/L (Normal) Range: 39-117 Bilirubin, Total 0.2 mg/dL (Normal) Range: 0.0-1.2 A/G Ratio 2.0 (Normal) Range: 1.1-2.5 Globulin, Total 2.4 g/dL (Normal) Range: 1.5-4.5 Albumin, Serum 4.8 g/dL (Normal) Range: 3.6-4.8 Protein, Total, Serum 7.2 g/dL (Normal) Range: 6.0-8.5 Calcium, Serum 10.4 mg/dL (Abnormal) Range: 8.7-10.3 Carbon Dioxide, Total 25 mmol/L (Normal) Range: 18-29 Chloride, Serum 99 mmol/L (Normal) Range: 97-108 Comments: Effective January 31, 2016 the reference interval for Chloride, Serum will be changing to: 97 - 106 Potassium, Serum 4.4 mmol/L (Normal) Range: 3.5-5.2 Comments: Effective January 31, 2016 the reference interval for Potassium, Serum will be changing to: 0 - 7 days 3.7 - 5.2 8 - 30 days 3.7 - 6.4 1 - 6 months 3.8 - 6.0 7 months - 1 year 3.8 - 5.3 >1 year 3.5 - 5.2 Sodium, Serum 143 mmol/L (Normal) Range: 134-144 Comments: Effective January 31, 2016 the reference interval for Sodium, Serum will be changing to: 136 - 144 BUN/Creatinine Ratio 29 (Abnormal) Range: 11-26 eGFR If Africn Am 70 mL/min/1.73 (Normal) eGFR If NonAfricn Am 60 mL/min/1.73 (Normal) Creatinine, Serum 0.99 mg/dL (Normal) Range: 0.57-1.00 BUN 29 mg/dL (Abnormal) Range: 8-27 Glucose, Serum 90 mg/dL (Normal) Range: 65-99 36-Mcd-143954:52 Urinalysis, Office (47266) UA - LEUKOCYTE ESTERASE Negative (Normal) UA - NITRITE Negative (Normal) URINE UROBILINGN LEWIS TIMED Normal mg/dL (Normal) UA - PROTEIN Trace mg/dL (Normal) UA - PH 6.5 (Normal) UA - BLOOD Negative (Normal) UA - SPECIFIC GRAVITY 1.030 (Abnormal) UA - KETONES Negative mg/dL (Normal) UA - BILIRUBIN Negative (Normal) UA - GLUCOSE Negative (Normal) 31-Tai-082052:17 URINE SULAIMAN CULTURE-LEWIS COL Comments: post-atb; PATIENT NOT FASTINGPERFORMED BY: [employer] [facility] [id number] Information: SRC:[facility] [id number] COUNT ([id number]) Result 1 MUG (Normal) Comments: Mixed urogenital flora10,000-25,000 colony forming units per mL Urine Final report (Normal) Culture,Comprehensive 46-Ina-498491:04 Serum Creatinine AND GFR Comments: [facility] [address] [place], [address] EST GFR - AA 81 mL/min (Normal) Comments: GFR Calc EST GFR 67 mL/min (Normal) Comments: Non- GFR Calc CREAT,SERUM 0.90 mg/dL (Normal) Range: 0.55-1.20 Comments: The validity of the calculated GFR AND GFRAA in patients over70 years has not been determined. Clinical correlation isessential. 24-Mpv-357777:25 Microscopic Examination Comments: PATIENT NOT FASTINGPERFORMED BY: [employer] Vcprxq9077 [facility] [id number] Bacteria Few (Normal) Mucus Threads Present (Normal) Epithelial Cells (non renal) 0-10 {/hpf} (Normal) Range: 0 - 10 RBC 0-2 {/hpf} (Normal) Range: 0 - 2 WBC >30 {/hpf} (Abnormal) Range: 0 - 5 :25 URINALYSIS, W/ MICRO Comments: PATIENT NOT FASTINGPERFORMED BY: [employer] [facility] [id number] Information: [id number] ([id number]) Microscopic Examination See below: (Normal) Comments: Microscopic was indicated and was performed. Nitrite, Urine Positive (Abnormal) Urobilinogen,Semi-Qn 0.2 mg/dL (Normal) Range: 0.2-1.0 Bilirubin Negative (Normal) Occult Blood Negative (Normal) Ketones Negative (Normal) Glucose Negative (Normal) Protein Negative (Normal) WBC Esterase 3+ (Abnormal) Appearance Cloudy (Abnormal) Urine-Color Yellow (Normal) pH 6.0 (Normal) Range: 5.0-7.5 Specific [place] 1.017 (Normal) Range: 1.005-1.030 69-Hjs-943112:25 URINE SULAIMAN CULTURE (LEWIS COL Comments: PATIENT NOT FASTINGPERFORMED BY: [employer] Qnulnv2376 [facility] [id number] COUNT) ([id number]) Antimicrobial MIHEAD (Normal) Comments: S = Susceptible; I = Intermediate; R = Resistant P = Positive; N = Negative MICS are expressed in micrograms per mL Antibiotic RSLT#1 RSLT#2 RS Susceptibility LT#3 RSLT#4Amoxicillin/Clavulanic Acid SAmpicillin SCefepime SCeftriaxone SCefuroxime ICephalothin SCiprofloxacin SErtapenem SGentamicin SImipenem SLevofloxacin SNitrofurantoin SPipera cillin STetracycline STobramycin STrimethoprim/Sulfa S Result 1 Escherichia coli Comments: Greater than 100,000 colony forming units per mL (Abnormal) Urine Final report Culture,Comprehensive (Abnormal) 10-Byn-051178:10 Vitamin D Hydroxy (56267) Comments: PATIENT WAS FASTINGPERFORMED BY: [facility] Whumkm1373 [facility] [id number] Vitamin D, 25-Hydroxy 43.9 ng/mL (Normal) Range: 30.0-100.0 Comments: Vitamin D deficiency has been defined by the Thayer ofMedicine and an Endocrine Society practice guideline as alevel of serum 25-OH vitamin D less than 20 ng/mL (1,2).The Endocrine Society went on to further define vitamin Dinsufficiency as a level between 21 and 29 ng/mL (2).1. IOM (Thayer of Medicine). 2010. Dietary reference intakes for calcium and D. [place]: The National Academies Press.2. Tylor MF, [place], Magan MARIE, et al. Evaluation, treatment, and prevention of vitamin D deficiency: an Endocrine Society clinical practice guideline. JCEM. 2010; 96(7):1911-30. 61-Xfw-001867:10 VITAMIN B-12 (CYANOCOBALAMIN) Comments: PATIENT WAS FASTINGPERFORMED BY: [facility]6370 [facility] [id number] ([id number]) Vitamin B12 978 pg/mL (Abnormal) Range: 211-946 91-Qlh-798409:10 CBC W/AUTO DIFF WBC Comments: PATIENT WAS FASTINGPERFORMED BY: [facility]6370 [facility] [id number] Information: [id number] (54244) Immature Grans (Abs) 0.0 {x10E3/uL} (Normal) Range: 0.0-0.1 Immature Granulocytes 0 % (Normal) Baso (Absolute) 0.0 {x10E3/uL} (Normal) Range: 0.0-0.2 Eos (Absolute) 0.0 {x10E3/uL} (Normal) Range: 0.0-0.4 Monocytes(Absolute) 0.5 {x10E3/uL} (Normal) Range: 0.1-0.9 Lymphs (Absolute) 1.3 {x10E3/uL} (Normal) Range: 0.7-3.1 Neutrophils (Absolute) 4.5 {x10E3/uL} (Normal) Range: 1.4-7.0 Basos 0 % (Normal) Eos 0 % (Normal) Monocytes 7 % (Normal) Lymphs 20 % (Normal) Neutrophils 73 % (Normal) Platelets 272 {x10E3/uL} (Normal) Range: 150-379 RDW 13.8 % (Normal) Range: 12.3-15.4 MCHC 33.0 g/dL (Normal) Range: 31.5-35.7 MCH 31.6 pg (Normal) Range: 26.6-33.0 MCV 96 fL (Normal) Range: 79-97 Hematocrit 39.1 % (Normal) Range: 34.0-46.6 Hemoglobin 12.9 g/dL (Normal) Range: 11.1-15.9 RBC 4.08 {x10E6/uL} (Normal) Range: 3.77-5.28 WBC 6.3 {x10E3/uL} (Normal) Range: 3.4-10.8 42-Jfv-189442:10 METABOLIC PANEL, COMPREHENSIVE Comments: PATIENT WAS FASTINGPERFORMED BY: [employer] [facility] [id number] ([id number]) ALT (SGPT) 17 [iU]/L (Normal) Range: 0-32 AST (SGOT) 21 [iU]/L (Normal) Range: 0-40 Alkaline Phosphatase, S 63 [iU]/L (Normal) Range: 39-117 Bilirubin, Total 0.4 mg/dL (Normal) Range: 0.0-1.2 A/G Ratio 2.1 (Normal) Range: 1.1-2.5 Globulin, Total 2.2 g/dL (Normal) Range: 1.5-4.5 Albumin, Serum 4.6 g/dL (Normal) Range: 3.6-4.8 Protein, Total, Serum 6.8 g/dL (Normal) Range: 6.0-8.5 Calcium, Serum 9.7 mg/dL (Normal) Range: 8.7-10.3 Carbon Dioxide, Total 22 mmol/L (Normal) Range: 18-29 Chloride, Serum 100 mmol/L (Normal) Range: 97-108 Potassium, Serum 4.4 mmol/L (Normal) Range: 3.5-5.2 Sodium, Serum 143 mmol/L (Normal) Range: 134-144 BUN/Creatinine Ratio 26 (Normal) Range: 11-26 eGFR If Africn Am 79 mL/min/1.73 (Normal) eGFR If NonAfricn Am 69 mL/min/1.73 (Normal) Creatinine, Serum 0.89 mg/dL (Normal) Range: 0.57-1.00 BUN 23 mg/dL (Normal) Range: 8-27 Glucose, Serum 89 mg/dL (Normal) Range: 65-99 47-Vku-983913:10 TSH (45066) Comments: PATIENT WAS FASTINGPERFORMED BY: [place]LexDublin [place] [id number] TSH 2.460 {uIU/mL} (Normal) Range: 0.450-4.500 :22 Vitamin D Hydroxy (18108) Comments: PATIENT NOT FASTINGPERFORMED BY: [facility]6370 [facility] [id number] Vitamin D, 25-Hydroxy 46.0 ng/mL (Normal) Range: 30.0-100.0 Comments: Vitamin D deficiency has been defined by the Thayer ofMedicine and an Endocrine Society practice guideline as alevel of serum 25-OH vitamin D less than 20 ng/mL (1,2).The Endocrine Society went on to further define vitamin Dinsufficiency as a level between 21 and 29 ng/mL (2).1. IOM (Thayer of Medicine). 2010. Dietary reference intakes for calcium and D. [place]: The National Academies Press.2. Tylor MF, [place], Magan MARIE, et al. Evaluation, treatment, and prevention of vitamin D deficiency: an Endocrine Society clinical practice guideline. JCEM. 2010; 96(7):1911-30. :22 METABOLIC PANEL, Comments: PATIENT NOT FASTINGPERFORMED BY: [facility]6370 [facility] [id number] Information: [id number]; will review on 04/07 COMPREHENSIVE (35046) ALT (SGPT) 15 [iU]/L (Normal) Range: 0-32 AST (SGOT) 21 [iU]/L (Normal) Range: 0-40 Alkaline Phosphatase, S 56 [iU]/L (Normal) Range: 39-117 Bilirubin, Total 0.3 mg/dL (Normal) Range: 0.0-1.2 A/G Ratio 2.0 (Normal) Range: 1.1-2.5 Globulin, Total 2.4 g/dL (Normal) Range: 1.5-4.5 Albumin, Serum 4.7 g/dL (Normal) Range: 3.6-4.8 Protein, Total, Serum 7.1 g/dL (Normal) Range: 6.0-8.5 Calcium, Serum 10.0 mg/dL (Normal) Range: 8.7-10.3 Carbon Dioxide, Total 25 mmol/L (Normal) Range: 18-29 Chloride, Serum 100 mmol/L (Normal) Range: 97-108 Potassium, Serum 4.9 mmol/L (Normal) Range: 3.5-5.2 Sodium, Serum 143 mmol/L (Normal) Range: 134-144 BUN/Creatinine Ratio 33 (Abnormal) Range: 11-26 eGFR If Africn Am 86 mL/min/1.73 (Normal) eGFR If NonAfricn Am 74 mL/min/1.73 (Normal) Creatinine, Serum 0.84 mg/dL (Normal) Range: 0.57-1.00 BUN 28 mg/dL (Abnormal) Range: 8-27 Glucose, Serum 83 mg/dL (Normal) Range: 65-99 41-Dan-91913:42 CBC With Differential/Platelet Comments: PATIENT WAS FASTINGPERFORMED BY: [employer] Jckzsh8998 [facility] [id number] Information: [id number] Immature Grans (Abs) 0.0 {x10E3/uL} (Normal) Range: 0.0-0.1 Immature Granulocytes 0 % (Normal) Baso (Absolute) 0.0 {x10E3/uL} (Normal) Range: 0.0-0.2 Eos (Absolute) 0.0 {x10E3/uL} (Normal) Range: 0.0-0.4 Monocytes(Absolute) 0.5 {x10E3/uL} (Normal) Range: 0.1-0.9 Lymphs (Absolute) 1.3 {x10E3/uL} (Normal) Range: 0.7-3.1 Neutrophils (Absolute) 6.6 {x10E3/uL} (Normal) Range: 1.4-7.0 Basos 0 % (Normal) Eos 0 % (Normal) Monocytes 6 % (Normal) Lymphs 16 % (Normal) Neutrophils 78 % (Normal) Platelets 259 {x10E3/uL} (Normal) Range: 150-379 RDW 13.4 % (Normal) Range: 12.3-15.4 MCHC 33.5 g/dL (Normal) Range: 31.5-35.7 MCH 32.4 pg (Normal) Range: 26.6-33.0 MCV 97 fL (Normal) Range: 79-97 Hematocrit 41.5 % (Normal) Range: 34.0-46.6 Hemoglobin 13.9 g/dL (Normal) Range: 11.1-15.9 RBC 4.29 {x10E6/uL} (Normal) Range: 3.77-5.28 WBC 8.4 {x10E3/uL} (Normal) Range: 3.4-10.8 :42 Comp. Metabolic Panel (14) Comments: PATIENT WAS FASTINGPERFORMED BY: [facility]CoCentraState Healthcare SystemCwfrsl2867 [facility] [id number] ALT (SGPT) 19 [iU]/L (Normal) Range: 0-32 AST (SGOT) 24 [iU]/L (Normal) Range: 0-40 Alkaline Phosphatase, S 53 [iU]/L (Normal) Range: 39-117 Bilirubin, Total 0.3 mg/dL (Normal) Range: 0.0-1.2 A/G Ratio 2.3 (Normal) Range: 1.1-2.5 Globulin, Total 2.1 g/dL (Normal) Range: 1.5-4.5 Albumin, Serum 4.8 g/dL (Normal) Range: 3.6-4.8 Protein, Total, Serum 6.9 g/dL (Normal) Range: 6.0-8.5 Calcium, Serum 9.7 mg/dL (Normal) Range: 8.7-10.3 Carbon Dioxide, Total 23 mmol/L (Normal) Range: 18-29 Chloride, Serum 103 mmol/L (Normal) Range: 97-108 Potassium, Serum 4.3 mmol/L (Normal) Range: 3.5-5.2 Sodium, Serum 143 mmol/L (Normal) Range: 134-144 BUN/Creatinine Ratio 35 (Abnormal) Range: 11-26 eGFR If Africn Am 91 mL/min/1.73 (Normal) eGFR If NonAfricn Am 79 mL/min/1.73 (Normal) Creatinine, Serum 0.80 mg/dL (Normal) Range: 0.57-1.00 BUN 28 mg/dL (Abnormal) Range: 8-27 Glucose, Serum 96 mg/dL (Normal) Range: 65-99 :42 Lipid Panel With LDL/HDL Comments: PATIENT WAS FASTINGPERFORMED BY: [facility]6370 [facility] [id number]; patient has fu 7-20 will review then Ratio LDL/HDL Ratio 1.4 {ratio_units} Range: 0.0-3.2 (Normal) Comments: LDL/HDL Ratio Men Women 1/2 Avg.Risk 1.0 1.5 Av g.Risk 3.6 3.2 2X Avg.Risk 6.2 5.0 3X Avg.Risk 8.0 6.1 LDL Cholesterol Calc 127 mg/dL (Abnormal) Range: 0-99 VLDL Cholesterol Ben 11 mg/dL (Normal) Range: 5-40 HDL Cholesterol 89 mg/dL (Normal) Comments: According to ATP-III Guidelines, HDL-C >59 mg/dL is considered anegative risk factor for CHD. Triglycerides 57 mg/dL (Normal) Range: 0-149 Cholesterol, Total 227 mg/dL (Abnormal) Range: 100-199 26-Oct-2014 TSH 2.130 {uIU/mL} Comments: PATIENT WAS FASTINGPERFORMED BY: [facility]6370 [facility] [id number] 9:42 (Normal) Range: 0.450-4.500 26-Oct-2014 Vitamin B12 1046 pg/mL (Abnormal) Comments: PATIENT WAS FASTINGPERFORMED BY: [facility]6370 [facility] [id number] 9:42 Range: 211-946 26-Oct-2014 Vitamin D, 25-Hydroxy 48.4 ng/mL (Normal) Comments: PATIENT WAS FASTINGPERFORMED BY: [facility]6370 [facility] [id number] 9:42 Range: 30.0-100.0 Comments: Vitamin D deficiency has been defined by the Thayer ofMedicine and an Endocrine Society practice guideline as alevel of serum 25-OH vitamin D less than 20 ng/mL (1,2).The Endocrine Society went on to further define vitamin Dinsufficiency as a level between 21 and 29 ng/mL (2).1. IOM (Thayer of Medicine). 2010. Dietary reference intakes for calcium and D. [place]: The National Academies Press.2. Tylor GARCIA, [place] MAYNARD, Magan MARIE, et al. Evaluation, treatment, and prevention of vitamin D deficiency: an Endocrine Society clinical practice guideline. JCEM. 2010; 96(7):1911-30. :47 Protein Electro, Random Urine Comments: PERFORMED BY: [facility] [id number] Please note: SPRCS (Normal) Comments: Protein electrophoresis scan will follow via computer, mail, orcourier delivery. Gamma Globulin, U 19.7 % (Normal) M-Benjamin, % Not Observed % (Normal) Beta Globulin, U 28.3 % (Normal) Xeqdz-3-Pnjtirwp, U 22.0 % (Normal) Swneg-6-Iqcwmged, U 4.3 % (Normal) Albumin, U 25.6 % (Normal) Protein,Total,Urine 19.5 mg/dL (Abnormal) Range: 0.0-15.0 :47 Protein Electro.,S Comments: PERFORMED BY: [facility] [id number] Please note: SPRCS (Normal) Comments: Protein electrophoresis scan will follow via computer, mail, orcourier delivery. A/G Ratio 2.0 (Normal) Range: 0.7-2.0 Gamma Globulin 0.6 g/dL (Normal) Range: 0.5-1.6 Globulin, Total 2.2 g/dL (Normal) Range: 2.0-4.5 M-Benjamin Not Observed g/dL (Normal) Bfixr-4-Hrcppxyd 0.6 g/dL (Normal) Range: 0.4-1.2 Beta Globulin 0.8 g/dL (Normal) Range: 0.6-1.3 Albumin 4.3 g/dL (Normal) Range: 3.2-5.6 Spykr-4-Nybiqvfx 0.2 g/dL (Normal) Range: 0.1-0.4 Protein, Total, Serum 6.5 g/dL (Normal) Range: 6.0-8.5 :41 URINE CALCIUM LEWIS TIMED Comments: PATIENT NOT FASTINGPERFORMED BY: [facility] [id number] Information: [id number] START 12/24/13@730AM END 12/25/13@73 0AM 24 Hour ([id number]) Calcium, Urine 24hr 182.9 {mg/24_hr} (Normal) Range: 100.0-300.0 Calcium, Urine 11.8 mg/dL (Normal) :47 PARATHORMONE (90404) Comments: PERFORMED BY: [facility] [id number] PTH, Intact 29 pg/mL (Normal) Range: 15-65 :20 CBC WITH MANUAL DIFF Comments: PATIENT WAS FASTINGPERFORMED BY: [facility] [id number] Information: [id number] (69699) Immature Grans (Abs) 0.0 {x10E3/uL} (Normal) Range: 0.0-0.1 Immature Granulocytes 0 % (Normal) Range: 0-2 Baso (Absolute) 0.0 {x10E3/uL} (Normal) Range: 0.0-0.2 Eos (Absolute) 0.0 {x10E3/uL} (Normal) Range: 0.0-0.4 Monocytes(Absolute) 0.5 {x10E3/uL} (Normal) Range: 0.1-0.9 Lymphs (Absolute) 1.8 {x10E3/uL} (Normal) Range: 0.7-3.1 Neutrophils (Absolute) 6.3 {x10E3/uL} (Normal) Range: 1.4-7.0 Basos 0 % (Normal) Range: 0-3 Eos 0 % (Normal) Range: 0-5 Monocytes 6 % (Normal) Range: 4-12 Lymphs 21 % (Normal) Range: 14-46 Neutrophils 73 % (Normal) Range: 40-74 Platelets 259 {x10E3/uL} (Normal) Range: 150-379 RDW 13.1 % (Normal) Range: 12.3-15.4 MCHC 33.7 g/dL (Normal) Range: 31.5-35.7 MCH 32.3 pg (Normal) Range: 26.6-33.0 MCV 96 fL (Normal) Range: 79-97 Hematocrit 41.8 % (Normal) Range: 34.0-46.6 Hemoglobin 14.1 g/dL (Normal) Range: 11.1-15.9 RBC 4.37 {x10E6/uL} (Normal) Range: 3.77-5.28 WBC 8.7 {x10E3/uL} (Normal) Range: 3.4-10.8 :20 METABOLIC PANEL, COMPREHENSIVE Comments: PATIENT WAS FASTINGPERFORMED BY: [facility] SystemSsoswg4312 [facility] [id number] (81711) ALT (SGPT) 14 [iU]/L (Normal) Range: 0-32 AST (SGOT) 21 [iU]/L (Normal) Range: 0-40 Alkaline Phosphatase, S 74 [iU]/L (Normal) Range: 39-117 Bilirubin, Total 0.2 mg/dL (Normal) Range: 0.0-1.2 A/G Ratio 2.1 (Normal) Range: 1.1-2.5 Globulin, Total 2.2 g/dL (Normal) Range: 1.5-4.5 Albumin, Serum 4.6 g/dL (Normal) Range: 3.6-4.8 Protein, Total, Serum 6.8 g/dL (Normal) Range: 6.0-8.5 Calcium, Serum 9.6 mg/dL (Normal) Range: 8.6-10.2 Carbon Dioxide, Total 24 mmol/L (Normal) Range: 18-29 Chloride, Serum 101 mmol/L (Normal) Range: 97-108 Potassium, Serum 4.2 mmol/L (Normal) Range: 3.5-5.2 Sodium, Serum 140 mmol/L (Normal) Range: 134-144 BUN/Creatinine Ratio 27 (Abnormal) Range: 11-26 eGFR If Africn Am 86 mL/min/1.73 (Normal) eGFR If NonAfricn Am 75 mL/min/1.73 (Normal) Creatinine, Serum 0.84 mg/dL (Normal) Range: 0.57-1.00 BUN 23 mg/dL (Normal) Range: 8-27 Glucose, Serum 87 mg/dL (Normal) Range: 65-99 :20 TSH (41915) Comments: PATIENT WAS FASTINGPERFORMED BY: [facility] Ntuvpc6074 [address] [facility] [place] [id number] TSH 2.540 {uIU/mL} (Normal) Range: 0.450-4.500 82-Faz-28552:20 Vitamin D Hydroxy (98398) Comments: PATIENT WAS FASTINGPERFORMED BY: [facility] Ewlbmj1399 [address] [facility] [place] [id number] Vitamin D, 25-Hydroxy 58.3 ng/mL (Normal) Range: 30.0-100.0 Comments: Vitamin D deficiency has been defined by the Thayer ofMedicine and an Endocrine Society practice guideline as alevel of serum 25-OH vitamin D less than 20 ng/mL (1,2).The Endocrine Society went on to further define vitamin Dinsufficiency as a level between 21 and 29 ng/mL (2).1. IOM (Thayer of Medicine). 2010. Dietary reference intakes for calcium and D. [place]: The National Academies Press.2. Tylor MF, [place] MAYNARD, Magan MARIE, et al. Evaluation, treatment, and prevention of vitamin D deficiency: an Endocrine Society clinical practice guideline. JCEM. 2010; 96(7):1911-30. 48-Xmi-265478:37 BILAT SCRN DIGITAL & CAD Radiology See Note Comments: MAMMOGRAPHY - BILATERAL SCREENING REASON FOR EXAM: Female, 62 years old. Routine annual screeningexamination. PERTINENT HISTORY: Mother with breast cancer. TECHNIQUE: Digital examination. Mediol Report (Normal) ateral oblique (MLO) andcraniocaudad (CC) views of both breasts were obtained. CAD: CAD wasperformed on this study. COMPARISON: 12/05/11 FINDINGS:The breast compositi on is heterogeneously dense - ranging from 51% to 75%of the breast tissue. There are no dominant masses or suspicious calcifications. There is a 1.9 mm macrocalcification in the upper outer left breast whichrepresents fibroadenoma. IMPRESSION:Stable bilateral screening mammogram. Yearly follow-up recommended. (A) ASSESSMENT CATEG ORY:BIRADS Category 2: Benign finding(s). A letter regarding these resultswill be sent to the patient by the facility within 30 days. Approximately 10% of breast cancers are not detected by mammograph y. Anormal mammogram should not delay biopsy of a clinically suspiciousabnormality. Signed:Carlos Hartman M.D.December 10, 2012 at 12:25:05 PM [phone] Signed RU/RU If you are the referring physician and would like to consult with theradiologist who provided this interpretation, please contact Neris Gambino at [phone]. If this radiologist is unavailable, youwillbe dir ected to another radiologist to assist. If you are a patient with a question regarding this report, pleasecontactyour referring physician directly. Professional Interpretation Provided By: [facility], Phone , These documents contain legally protected and confidential healthinformation intended only for the use of the individual or entity namedabove. If you are not the in tended recipient, you are hereby notifiedthatany disclosure, copying, distribution, or other use of these documents isstrictly prohibited. If you have received this information in error,pleasenotify the sender immediately and arrange for the return or destructionofthese documents. Dictated on 12/10/12 1225 by Carlos HartmanTranscribed on 12/10/12 1241 by ITS IMPORTSign by Carlos Hartman on 12/10 1242 Sign by: Carlos Hartman 72-Dmx-849327:33 TSH ([id number]) Comments: PATIENT WAS FASTINGPERFORMED BY: [facility]CoCent[facility]State [facility] SystemBpmrfh6785 [facility] [id number] TSH 2.590 {uIU/mL} (Normal) Range: 0.450-4.500 22-Jej-257906:33 Vitamin D Hydroxy (12724) Comments: PATIENT WAS FASTINGPERFORMED BY: [employer] Yodsgs6843 [facility] [id number] Vitamin D, 25-Hydroxy 48.1 ng/mL (Normal) Range: 30.0-100.0 Comments: Vitamin D deficiency has been defined by the Thayer ofMedicine and an Endocrine Society practice guideline as alevel of serum 25-OH vitamin D less than 20 ng/mL (1,2).The Endocrine Society went on to further define vitamin Dinsufficiency as a level between 21 and 29 ng/mL (2).1. IOM (Thayer of Medicine). 2010. Dietary reference intakes for calcium and D. [place]: The National Academies Press.2. Tylor MF, [place] MAYNARD, Magan MARIE, et al. Evaluation, treatment, and prevention of vitamin D deficiency: an Endocrine Society clinical practice guideline. JCEM. 2010; 96(7):1911-30. 80-Cqa-745163:33 LIPID PANEL (09107) Comments: PATIENT WAS FASTINGPERFORMED BY: [employer]6370 [facility] [id number] LDL/HDL Ratio 1.2 {ratio_units} (Normal) Range: 0.0-3.2 LDL Cholesterol Calc 107 mg/dL (Abnormal) Range: 0-99 VLDL Cholesterol Ben 13 mg/dL (Normal) Range: 5-40 HDL Cholesterol 93 mg/dL (Normal) Comments: According to ATP-III Guidelines, HDL-C >59 mg/dL is considered anegative risk factor for CHD. Triglycerides 67 mg/dL (Normal) Range: 0-149 Cholesterol, Total 213 mg/dL (Abnormal) Range: 100-199 :33 CBC WITH MANUAL DIFF Comments: PATIENT WAS FASTINGPERFORMED BY: [employer] [id number] [id number] Information: [id number] ([id number]) Immature Grans (Abs) 0.0 {x10E3/uL} (Normal) Range: 0.0-0.1 Immature Granulocytes 0 % (Normal) Range: 0-2 Baso (Absolute) 0.0 {x10E3/uL} (Normal) Range: 0.0-0.2 Eos (Absolute) 0.0 {x10E3/uL} (Normal) Range: 0.0-0.4 Monocytes(Absolute) 0.5 {x10E3/uL} (Normal) Range: 0.1-1.0 Lymphs (Absolute) 1.4 {x10E3/uL} (Normal) Range: 0.7-4.5 Neutrophils (Absolute) 4.6 {x10E3/uL} (Normal) Range: 1.8-7.8 Basos 0 % (Normal) Range: 0-3 Eos 0 % (Normal) Range: 0-7 Monocytes 7 % (Normal) Range: 4-13 Lymphs 22 % (Normal) Range: 14-46 Neutrophils 71 % (Normal) Range: 40-74 Platelets 281 {x10E3/uL} (Normal) Range: 140-415 RDW 13.4 % (Normal) Range: 12.3-15.4 MCHC 32.8 g/dL (Normal) Range: 31.5-35.7 MCH 32.0 pg (Normal) Range: 26.6-33.0 MCV 98 fL (Abnormal) Range: 79-97 Hematocrit 40.2 % (Normal) Range: 34.0-46.6 Hemoglobin 13.2 g/dL (Normal) Range: 11.1-15.9 RBC 4.12 {x10E6/uL} (Normal) Range: 3.77-5.28 WBC 6.6 {x10E3/uL} (Normal) Range: 4.0-10.5 [id number]-Lay-[id number]:33 METABOLIC PANEL, COMPREHENSIVE Comments: PATIENT WAS FASTINGPERFORMED BY: [facility] SystemJdckfd[facility]56 [facility] [id number] ([id number]) ALT (SGPT) 19 [iU]/L (Normal) Range: 0-32 AST (SGOT) 24 [iU]/L (Normal) Range: 0-40 Alkaline Phosphatase, S 83 [iU]/L (Normal) Range: 47-112 Bilirubin, Total 0.3 mg/dL (Normal) Range: 0.0-1.2 A/G Ratio 2.0 (Normal) Range: 1.1-2.5 Globulin, Total 2.4 g/dL (Normal) Range: 1.5-4.5 Albumin, Serum 4.8 g/dL (Normal) Range: 3.6-4.8 Calcium, Serum 9.9 mg/dL (Normal) Range: 8.6-10.2 Protein, Total, Serum 7.2 g/dL (Normal) Range: 6.0-8.5 Carbon Dioxide, Total 22 mmol/L (Normal) Range: 19-28 Chloride, Serum 99 mmol/L (Normal) Range: 97-108 Potassium, Serum 4.5 mmol/L (Normal) Range: 3.5-5.2 Sodium, Serum 139 mmol/L (Normal) Range: 134-144 BUN/Creatinine Ratio 28 (Abnormal) Range: 11-26 eGFR If Africn Am 78 mL/min/1.73 (Normal) Creatinine, Serum 0.92 mg/dL (Normal) Range: 0.57-1.00 eGFR If NonAfricn Am 67 mL/min/1.73 (Normal) BUN 26 mg/dL (Normal) Range: 8-27 Glucose, Serum 95 mg/dL (Normal) Range: 65-99 08-Vid-536125:15 DEXA BONE DENSITY STUDY (HP) Radiology Report See Note (Normal) Comments: PROCEDURE: DUAL ENERGY X-RAY ABSORPTIOMETRY / DXA REASON FOR EXAM: Female, 61 years old. Osteopenia TECHNIQUE: Bone Mineral Density (BMD) measurements of lumbar spine andbilateral hips were obtain ed. COMPARISON: March 02, 2009. FINDINGS: Lumbar Spine (L1-L4): g/cm2 (1.060) / T-score (-1.0) / Z-score (plus0.2) Left Femur Total: g/cm2 (0.747) / T-score (-2.1) / Z-score (-1.1)Left Fe moral Neck: g/cm2 (0.705) / T-score (-2.4) / Z-score (-1.1Right Femur Total: g/cm2 (0.726) / T-score (-2.2) / Z-score (-1.3)Right Femoral Neck: g/cm2 (0.737) / T-score (-2.2) / Z-score (- 1.3) The T-Scores on the most recent prior examination were: Lumbar Spine (L1-L4): -2.1%.Left Femur Total: -5.7%.Right Femur Total: -5.6%. IMPRESSION:The patient is considered osteopenic, as outlined above, according toWorldHealth Organization (WHO) criteria. Fracture risk is moderate. There isdecreased bone density since the previous exam Reference Information:The T-score is the number of standard deviations above or below thestandard which is normal for young adults at their peak bone mineraldensity. The World Health Organization (WHO) interprets the T-scores asfollows : Above -1 Normal bone densityBetween -1 and -2.5 OsteopeniaEqual to / or below -2.5 Osteoporosis As a practical clinical guideline, osteopenia may be graded as follows:Mild -1 through -1. 5Moderate -1.6 through -2.0Severe -2.1 through -2.4 The Z-score is the number of standard deviations above or below age-matchedcontrols. A Z-score of less than -1.5 would be considered abnormal. Refe rences:1. NIH Osteoporosis and Related Bone Diseases http://www.osteo.org2. International Society for Clinical Densitometry http://www.iscd.org3. National Osteoporosis Foundation http://www.nof.org S igned:Brittny Carlson M.D.December 06, 2011 at 9:31:09 AM [phone] Signed MV/MV If you are the referring physician and would like to consult with theradiologist who provided this interpretation, please contact Brittny Du M.D. at . If this radiologist is unavailable, youwillbe directed to another radiologist to assist. If you are a patient with a question re garding this report, pleasecontactyour referring physician directly. Professional Interpretation Provided By: [facility], Phone , These documents contain legally protected and confidential healthinformation intended only for the use of the individual or entity namedabove. If you are not the intended recipient, you are hereby notifiedthatany disclosure, copying, distribut ion, or other use of these documents isstrictly prohibited. If you have received this information in error,pleasenotify the sender immediately and arrange for the return or destructionofthese documents. Dictated on 12/05/11 1209 by Flako DU MDanscribed on 12/06/11 1637 by ITS IMPORTSign by BRITTNY DU MD on 12/06/11 1638 Sign by: BRITTNY DU MD [id number]-Cmx-[id number]:14 BILAT SCRN DIGITAL & CAD Radiology Report See Note (Normal) Comments: MAMMOGRAPHY - BILATERAL SCREENING REASON FOR EXAM: Female, 61 years old. Routine annual screeningexamination. PERTINENT HISTORY: Mother and grandmother. TECHNIQUE: Digital examination. Mediola teral oblique (MLO) andcraniocaudad (CC) views of both breasts were obtained. CAD: CAD wasperformed on this study. COMPARISON: February 23, 2010. FINDINGS:The breast composition is heterogeneously den se. There are no dominant masses or suspicious calcifications. No other significant abnormalities are identified. IMPRESSION:Stable bilateral screening mammogram. Yearly follow-up recommended. (A) SESSMENT CATEGORY:BIRADS Category 1: Negative. A letter regarding these results will besent to the patient by the facility within 30 days. Approximately 10% of breast cancers are not detected by mammo graphy. Anormal mammogram should not delay biopsy of a clinically suspiciousabnormality. Signed:Brittny Carlson M.D.December 05, 2011 at 1:19:15 PM [phone] Signed MV/MV If you are the referring physician and would like to consult with theradiologist who provided this interpretation, please contact Brittny Du M.D. at . If this radiologist is unavailable, alexandre hdez directed to another radiologist to assist. If you are a patient with a question regarding this report, pleasecontactyour referring physician directly. Professional Interpretation Provided By: [facility], Phone , These documents contain legally protected and confidential healthinformation intended only for the use of the individual or entity namedabove. If you ar e not the intended recipient, you are hereby notifiedthatany disclosure, copying, distribution, or other use of these documents isstrictly prohibited. If you have received this information in error,plea senotify the sender immediately and arrange for the return or destructionofthese documents. Dictated on 12/05/11 1215 by Flako DU MDanscribed on 12/06/11 1602 by ITS IMPORTSign by BRITTNY DU MD on 12/06/11 1603 Sign by: BRITTNY DU MD :41 TSH ([id number]) Comments: PATIENT WAS FASTINGPERFORMED BY: [facility] Jqrxgy3504 [address] RoadDublin [place] [id number] TSH 4.390 {uIU/mL} (Normal) Range: 0.450-4.500 :41 Vitamin D Hydroxy (53719) Comments: PATIENT WAS FASTINGPERFORMED BY: [facility] Ivkmca4138 [address] RoadDublin [place] [id number] Vitamin D, 25-Hydroxy 59.4 ng/mL (Normal) Range: 30.0-100.0 Comments: Vitamin D deficiency has been defined by the Thayer ofMedicine and an Endocrine Society practice guideline as alevel of serum 25-OH vitamin D less than 20 ng/mL (1,2).The Endocrine Society went on to further define vitamin Dinsufficiency as a level between 21 and 29 ng/mL (2).1. IOM (Thayer of Medicine). 2010. Dietary reference intakes for calcium and D. [place]: The National Academies Press.2. Tylor MF, [place], Magan MARIE, et al. Evaluation, treatment, and prevention of vitamin D deficiency: an Endocrine Society clinical practice guideline. JCEM. 2010; 96(7):1911-30. :41 CBC WITH MANUAL DIFF Comments: PATIENT WAS FASTINGPERFORMED BY: [facility] Lovjbp2996 [address] RoadDublin [place] [id number] Information: [id number] ([id number]) Immature Grans (Abs) 0.0 {x10E3/uL} (Normal) Range: 0.0-0.1 Immature Granulocytes 0 % (Normal) Range: 0-2 Baso (Absolute) 0.0 {x10E3/uL} (Normal) Range: 0.0-0.2 Eos (Absolute) 0.0 {x10E3/uL} (Normal) Range: 0.0-0.4 Monocytes(Absolute) 0.4 {x10E3/uL} (Normal) Range: 0.1-1.0 Lymphs (Absolute) 1.3 {x10E3/uL} (Normal) Range: 0.7-4.5 Neutrophils (Absolute) 3.3 {x10E3/uL} (Normal) Range: 1.8-7.8 Basos 0 % (Normal) Range: 0-3 Eos 0 % (Normal) Range: 0-7 Monocytes 7 % (Normal) Range: 4-13 Lymphs 27 % (Normal) Range: 14-46 Neutrophils 66 % (Normal) Range: 40-74 Platelets 254 {x10E3/uL} (Normal) Range: 140-415 RDW 13.7 % (Normal) Range: 12.3-15.4 MCHC 33.3 g/dL (Normal) Range: 31.5-35.7 MCH 32.4 pg (Normal) Range: 26.6-33.0 MCV 97 fL (Normal) Range: 79-97 Hematocrit 39.9 % (Normal) Range: 34.0-46.6 Hemoglobin 13.3 g/dL (Normal) Range: 11.1-15.9 RBC 4.10 {x10E6/uL} (Normal) Range: 3.77-5.28 WBC 5.0 {x10E3/uL} (Normal) Range: 4.0-10.5 70-Ogw-55411:41 METABOLIC PANEL, COMPREHENSIVE Comments: PATIENT WAS FASTINGPERFORMED BY: [facility] SystemIoukqr4385 [facility] [id number] ([id number]) ALT (SGPT) 16 [iU]/L (Normal) Range: 0-40 AST (SGOT) 21 [iU]/L (Normal) Range: 0-40 Alkaline Phosphatase, S 77 [iU]/L (Normal) Range: 25-165 Bilirubin, Total 0.3 mg/dL (Normal) Range: 0.0-1.2 A/G Ratio 2.1 (Normal) Range: 1.1-2.5 Globulin, Total 2.2 g/dL (Normal) Range: 1.5-4.5 Albumin, Serum 4.6 g/dL (Normal) Range: 3.6-4.8 Protein, Total, Serum 6.8 g/dL (Normal) Range: 6.0-8.5 Calcium, Serum 10.0 mg/dL (Normal) Range: 8.6-10.2 Carbon Dioxide, Total 25 mmol/L (Normal) Range: 20-32 Chloride, Serum 101 mmol/L (Normal) Range: 97-108 Potassium, Serum 3.9 mmol/L (Normal) Range: 3.5-5.2 Sodium, Serum 141 mmol/L (Normal) Range: 134-144 BUN/Creatinine Ratio 22 (Normal) Range: 11-26 eGFR If Africn Am 77 mL/min/1.73 (Normal) eGFR If NonAfricn Am 67 mL/min/1.73 (Normal) Creatinine, Serum 0.93 mg/dL (Normal) Range: 0.57-1.00 BUN 20 mg/dL (Normal) Range: 8-27 Glucose, Serum 90 mg/dL (Normal) Range: 65-99 89-Aac-380490:42 SWALLOWING FUNCTION W/VIDEO Radiology Report See Note (Normal) Comments: PROCEDURE: SWALLOWING STUDY REASON FOR EXAM: Female, 60 years old. The patient presented with ahistory of multiple sclerosis and possible aspiration TECHNIQUE: The examination was per formed with Speech Pathology inattendance. Under fluoroscopic observation, the patient ingested thinbarium, thick barium, barium pudding, and barium coated cracker. COMPARISON: None. FINDINGS:The following was ob served during swallowing of the various mixtures ofbarium: Thin Barium: There was no evidence of aspiration .There is evidence ofspillage into the vallecula and piriform sinus. There is a mild one tot wosecond swallow delay. There is a mild degree of penetration when thestrawis used. Barium Pudding: There was no evidence of aspiration or laryngealpenetration. There is evidence of spillage into the vallecula as well asaswallow delay of one to two seconds. Barium Coated Cracker: There was no evidence of aspiration or laryngealpenetration. There is evidence of spillage into the vallecula as well asaswallow delay. IMPRESSION:Spillage into vallecula with a swallow delay.Minimal transient penetration with ingestion of thin liquids when thepatient utilizes a straw. The swallow study findings were d iscussed with the patient by the speechpathologist at the conclusion of the examination. Please see speechpathology report for more information and recommendations. Dictated on 10/13/10 1342 by Rod frias MD,GuerorieleTranscribed on 10/13/101827 by ITS IMPORTSign by Adrián Geiger MD on 10/13/101828 Sign by: Adrián Geiger MD 82-Drq-698731:44 URINE SULAIMAN CULTURE-IDENTIFICATN Comments: PATIENT NOT FASTINGPERFORMED BY: [facility]6370 [facility] [id number] Information: ADD [id number] ([id number]) Antimicrobial MIHEAD (Normal) Comments: S = Susceptible; I = Intermediate; R = Resistant P = Positive; N = Negative MICS are expressed in micrograms per mL Antibiotic RSLT#1 RSLT#2 Susceptibility RSLT#3 RSLT#4Amikacin SAmoxicillin/Clavulanic Acid RAmpicillin ICefazolin SCefepime SCefoxitin RCeftriaxone SCiprofloxacin SESBL NErtapenem SGentamicin SImipenem S Levofloxacin SNitrofurantoin STigecycline STobramycin STrimethoprim/Sulfa S Result 1 Escherichia coli Comments: Greater than 100,000 colony forming units per mL (Normal) Urine Final report (Normal) Culture,Comprehensive 72-Noe-[id number]:31 Urinalysis, Office ([id number]) UA - BILIRUBIN Negative (Normal) UA - BLOOD Negative (Normal) UA - GLUCOSE Negative (Normal) UA - KETONES Negative mg/dL (Normal) UA - LEUKOCYTE Trace (Normal) ESTERASE UA - NITRITE Positive (Normal) UA - PH 7.5 (Normal) UA - PROTEIN Negative mg/dL (Normal) UA - SPECIFIC GRAVITY 1.015 (Normal) URINE UROBILINGN LEWIS Normal mg/dL TIMED (Normal) C difficile Toxins Negative (Normal) Comments: [facility]FORMED BY: [facility] [id number] 4:51 A+B, EIA :51 Stool Culture Comments: PERFORMED BY: [employer] [facility] [id number] Information: SRC:ST E coli Shiga Toxin EIA Negative (Normal) Campylobacter Culture Final report (Normal) Result 1 NCI (Normal) Comments: No Campylobacter species isolated. Result 1 NSS (Normal) Comments: No Salmonella or Shigella recovered. Salmonella/Shigella Screen Final report (Normal) :51 White Blood Cells (WBC), Comments: PERFORMED BY: [employer] [facility] [id number] Stool Result 1 NWBC (Normal) Comments: No white blood cells seen. White Blood Cells (WBC), Final report (Normal) Comments: Reference Range: None Seen Stool :45 Microscopic Examination Comments: PATIENT NOT FASTINGPERFORMED BY: [employer]6370 [facility] [id number] Bacteria Many (Abnormal) Mucus Threads Present (Normal) Epithelial Cells (non renal) 0-10 {/hpf} (Normal) Range: 0 - 10 RBC 0-3 {/hpf} (Normal) Range: 0 - 3 WBC 6-10 {/hpf} (Abnormal) Range: 0 - 5 59-Ezi-697023:10 CHEST, PA AND LATERAL Radiology Report See Note (Normal) Comments: REASON FOR EXAM: Female, 60 years old. Bacterial pneumonia./Short ofbreath/wheezing PROCEDURE: X-RAY CHEST TECHNIQUE: PA and lateral views of the chest. COMPARISON January 25, 2009 and 2007 FINDINGS: There is hyperinflation compatible with COPD. There are multiple linear densities arising in the region of both francesco.These are unchanged. The largest area of density is seen on the left inthes uprahilar region. That density measures approximately 4.3 x 1.2 cm. Itisunchanged. There is a small density in the left lung base most likely representing anipple shadow. This has been seen previously. Normal heart. Normal mediastinum . Normal visualized pulmonary arteries. There is mildatherosclerotic tortuosity of the aortic arch and descending thoracicaorta. There are diffuse degenerative changes o f the visualized thoracic spine.There is degenerative osteoarthritis of the bilateral shoulders. There is no demonstrated abnormality of the visualized soft tissuestructures of the upper abdomen. IMPRES LINDSAY:COPD with chronic parenchymal scarring. Dictated on 09/26/10 1514 by BRET STRATTON MDTranscribed on 09/26/10 1638 by ITS IMPORTSign by BRET STRATTON MD on 09/26/10 1639 Sign by: BRET STRATTON MD 58-Szk-867679:26 Vitamin D Hydroxy (46804) Comments: PATIENT WAS FASTINGPERFORMED BY: [employer] [place] [id number] Vitamin D, 25-Hydroxy 58.5 ng/mL (Normal) Range: 32.0-100.0 Comments: Recent studies consider the lower limit of 32.0 ng/mL to be athreshold for optimal health.Gage JARAMILLO. J Nutr. 2004;135(2):317-22. 41-Xie-185627:45 URINALYSIS, W/ MICRO (26963) Comments: PATIENT NOT FASTINGPERFORMED BY: [employer] [place] [id number]; appt 10/04/10 Microscopic Examination See below: (Normal) Nitrite, Urine Positive (Abnormal) Bilirubin Negative (Normal) Ketones Negative (Normal) Occult Blood Negative (Normal) Urobilinogen,Semi-Qn 0.2 mg/dL (Normal) Range: 0.0-1.9 Glucose Negative (Normal) Protein Trace (Normal) WBC Esterase 2+ (Abnormal) Appearance Cloudy (Abnormal) Urine-Color Yellow (Normal) pH 7.0 (Normal) Range: 5.0-7.5 Specific [place] 1.022 (Normal) Range: 1.005-1.030 41-Qmw-083407:26 TSH (04960) Comments: PATIENT WAS FASTINGPERFORMED BY: [employer] [place] [id number] TSH 3.110 {uIU/mL} (Normal) Range: 0.450-4.500 :26 METABOLIC PANEL, COMPREHENSIVE Comments: PATIENT WAS FASTINGPERFORMED BY: [facility] Rwgpel3091 [facility] [id number] ([id number]) ALT (SGPT) 21 [iU]/L (Normal) Range: 0-40 AST (SGOT) 23 [iU]/L (Normal) Range: 0-40 A/G Ratio 2.0 (Normal) Range: 1.1-2.5 Albumin, Serum 4.8 g/dL (Normal) Range: 3.5-5.5 Alkaline Phosphatase, S 91 [iU]/L (Normal) Range: 25-150 Bilirubin, Total 0.3 mg/dL (Normal) Range: 0.0-1.2 Globulin, Total 2.4 g/dL (Normal) Range: 1.5-4.5 Calcium, Serum 9.8 mg/dL (Normal) Range: 8.7-10.2 Carbon Dioxide, Total 26 mmol/L (Normal) Range: 20-32 Chloride, Serum 101 mmol/L (Normal) Range: 97-108 Protein, Total, Serum 7.2 g/dL (Normal) Range: 6.0-8.5 BUN/Creatinine Ratio 23 (Normal) Range: 9-23 eGFR If Africn Am 74 mL/min/1.73 (Normal) Comments: Note: A persistent eGFR <60 mL/min/1.73 m2 (3 months or more) mayindicate chronic kidney disease. An eGFR >59 mL/min/1.73 m2 with anelevated urine protein also may indicate chronic kidney disease.Calculated using CKD-EPI formula. Potassium, Serum 4.6 mmol/L (Normal) Range: 3.5-5.2 Sodium, Serum 139 mmol/L (Normal) Range: 135-145 BUN 22 mg/dL (Normal) Range: 6-24 Creatinine, Serum 0.97 mg/dL (Normal) Range: 0.57-1.00 eGFR If NonAfricn Am 64 mL/min/1.73 (Normal) Glucose, Serum 94 mg/dL (Normal) Range: 65-99 37-Ujc-228889:26 LIPID PANEL ([id number]) Comments: PATIENT WAS FASTINGPERFORMED BY: [facility] SystemUslglt0503 [facility] [id number] HDL Cholesterol 86 mg/dL (Normal) Comments: According to ATP-III Guidelines, HDL-C >59 mg/dL is considered anegative risk factor for CHD. LDL Cholesterol Calc 112 mg/dL (Abnormal) Range: 0-99 LDL/HDL Ratio 1.3 {ratio_units} (Normal) Range: 0.0-3.2 VLDL Cholesterol Ben 12 mg/dL (Normal) Range: 5-40 Cholesterol, Total 210 mg/dL (Abnormal) Range: 100-199 Triglycerides 62 mg/dL (Normal) Range: 0-149 34-Dwz-291944:26 CBC WITH MANUAL DIFF ([id number]) Comments: PATIENT WAS FASTINGPERFORMED BY: [facility] Wvkpqy3742 [facility] [id number] Baso (Absolute) 0.0 {x10E3/uL} (Normal) Range: 0.0-0.2 Eos (Absolute) 0.0 {x10E3/uL} (Normal) Range: 0.0-0.4 Immature Grans (Abs) 0.0 {x10E3/uL} (Normal) Range: 0.0-0.1 Immature Granulocytes 0 % (Normal) Range: 0-2 Comments: Please note reference interval change Lymphs (Absolute) 1.7 {x10E3/uL} (Normal) Range: 0.7-4.5 Monocytes(Absolute) 0.6 {x10E3/uL} (Normal) Range: 0.1-1.0 Basos 0 % (Normal) Range: 0-3 Eos 0 % (Normal) Range: 0-7 Lymphs 23 % (Normal) Range: 14-46 Monocytes 9 % (Normal) Range: 4-13 Neutrophils 68 % (Normal) Range: 40-74 Neutrophils (Absolute) 4.9 {x10E3/uL} (Normal) Range: 1.8-7.8 MCH 32.5 pg (Normal) Range: 27.0-34.0 MCHC 33.7 g/dL (Normal) Range: 32.0-36.0 Platelets 294 {x10E3/uL} (Normal) Range: 140-415 RDW 13.2 % (Normal) Range: 11.7-15.0 Hematocrit 40.6 % (Normal) Range: 34.0-44.0 Hemoglobin 13.7 g/dL (Normal) Range: 11.5-15.0 MCV 96 fL (Normal) Range: 80-98 RBC 4.21 {x10E6/uL} (Normal) Range: 3.80-5.10 WBC 7.3 {x10E3/uL} (Normal) Range: 4.0-10.5 25-Txq-190559:09 BILAT SCRN DIGITAL & CAD Radiology Report See Note (Normal) Comments: Exam Number: [id number] AMMOGRAPHY - BILATERAL SCREENING INDICATION:Routine annual screening examination. PERTINENT HISTORY:Mother with breast cancer. TECHNIQUE:Digital examination. Mediolateral oblique (MLO) and craniocaudad (CC) views of both breasts were obtained. CAD was performed on this study. COMPARISON:January 11 2005, February 24 2009 FINDINGS:The breast composition is extremely dense and this may lower the sensitivity of mammography. The breast parenchyma is diffusely nodular with an asymmetric density being noted in the upper right breast. These findings are stablethere is no skin th ickening or retraction architectural distortion or cluster of suspicious microcalcifications. There is no new or spiculated density and no clusters of microcalcifications.If there is no suspicious palp able abnormality a follow-up mammogram in one year is recommended IMPRESSION:Normal bilateral screening mammogram. Yearly follow-up recommended. ASSESSMENT CATEGORY:Category 2: Benign finding(s) Appro ximately 10% of breast cancers are not detected by mammography. A normal mammogram should not delay biopsy of a clinically suspicious abnormality.This addendum is being created for the purpose of attac reymundo a ResultCode to this exam. ADDENDUM: [id number] HPBI/MDS Reported By: BRET STRATTON M.D. 38-Lec-587211:54 DEXA BONE DENSITY STUDY (HP) Radiology Report See Note (Normal) Comments: Exam Number: [id number] BONE DENSITOMETRY HISTORYOsteopenia. TECHNIQUE Bone densitometry of the lumbar spine and both hips is now beingperformed. The best criteria for evaluation of os teoporosis i s theT-value, which represents the comparison of the patient's bone mass esvin expected peak bone mass. For most patients, the mean T-value of L0bwuasfy L4 is used to evaluate the lumbar spine. To eval uate the hip,the lower T-value of the femoral neck or total hip is used. FINDINGSIn this patient, the mean T-value of L1 through L4 is -0.8, which isnormal. Bone mineral density is measured at 2.5% les s than in 1998and 5.2% less than in 2002. Digital lateral view for evaluation ofvertebral deformity only demonstrates no fracture. The T-value ofthe left femoral neck is -2.1, which is in the range of osteopenia. The T-value of the total left hip is -2, which is in the range ofosteopenia. Bone mineral density is measured at 11% less than in 1998and 4.8% less than in 2002. The T-value of the right femoral neck is-1.8, which is in the range of osteopenia. The T-value of the totalright hip is -2.1, which is in the range of osteopenia. IMPRESSIONBone densitometry of the lumbar spine is within no rmal limits. Thereis osteopenia of both hips. Reported By: BRET STRATTON M.D. 08-Wbg-213544:15 [facility] DIGITAL & CAD Radiology Report See Note (Normal) Comments: Exam Number: [id number] MAMMOGRAM, BILATERAL SCREENING DIGITAL AND CAD HISTORYRoutine screening. Full field digital images were obtained in mediolateral oblique andcraniocaudal projections. CAD images w ere reviewed. The current study is compared to the examinations of May 12, 2002and January 11, 2005 from the [facility]. There is a severe extent of fibroglandular par enchyma present. Thebreast parenchyma is diffusely dense and nodular. There is no skinthickening or retraction, architectural distortion, or dominant mass.There are 2 calcifications seen in the outer r ight breast. These arebenign in appearance. If there is no suspicious palpable abnormality,followup mammogram in 1 year is recommended. IMPRESSIONThere is no radiographic evidence of malignancy identif ied. FINAL ASSESSMENTBenign findings. BIRADS Category 2. A letter regarding these results has been sent to the patient. This interpretation was rendered by a radiologist certified under theMammography Quality Standards Act of 1992 (MQSA). The mammograms werealso examined with computer-aided detection software ([employer], [employer] Reported By: BRET STRATTON M.D. :15 LIPID PANEL ([id number]) Comments: PATIENT WAS FASTINGPERFORMED BY: [facility] SystemJbqvng8087 [facility] [id number] Cholesterol, Total 208 mg/dL (Abnormal) Range: 100-199 HDL Cholesterol 73 mg/dL (Normal) Comments: According to ATP-III Guidelines, HDL-C >59 mg/dL is considered anegative risk factor for CHD. LDL Cholesterol Calc 120 mg/dL (Abnormal) Range: 0-99 LDL/HDL Ratio 1.6 {ratio_units} (Normal) Range: 0.0-3.2 Triglycerides 76 mg/dL (Normal) Range: 0-149 VLDL Cholesterol Ben 15 mg/dL (Normal) Range: 5-40 :15 METABOLIC PANEL, COMPREHENSIVE Comments: PATIENT WAS FASTINGPERFORMED BY: [facility] SystemOkcgry6787 [facility] [id number] ([id number]) A/G Ratio 2.0 (Normal) Range: 1.1-2.5 Albumin, Serum 4.9 g/dL (Normal) Range: 3.5-5.5 Alkaline Phosphatase, S 89 [iU]/L (Normal) Range: 25-150 ALT (SGPT) 21 [iU]/L (Normal) Range: 0-40 AST (SGOT) 27 [iU]/L (Normal) Range: 0-40 Bilirubin, Total 0.4 mg/dL (Normal) Range: 0.1-1.2 BUN 23 mg/dL (Normal) Range: 5-26 BUN/Creatinine Ratio 25 (Normal) Range: 8-27 Calcium, Serum 9.9 mg/dL (Normal) Range: 8.5-10.6 Carbon Dioxide, Total 26 mmol/L (Normal) Range: 20-32 Chloride, Serum 103 mmol/L (Normal) Range: 97-108 Creatinine, Serum 0.91 mg/dL (Normal) Range: 0.57-1.00 eGFR >59 mL/min/1.73 (Normal) eGFR AfricanAmerican >59 mL/min/1.73 Comments: Note: Persistent reduction for 3 months or more in an eGFR<60 mL/min/1.73 m2 defines CKD. Patients with eGFR values>/=60 mL/min/1.73 m2 may also have CKD if evidence of persistentproteinuria is (Normal) present. Additional information may be found [email or web address]. Globulin, Total 2.4 g/dL (Normal) Range: 1.5-4.5 Glucose, Serum 82 mg/dL (Normal) Range: 65-99 Potassium, Serum 5.0 mmol/L (Normal) Range: 3.5-5.2 Protein, Total, Serum 7.3 g/dL (Normal) Range: 6.0-8.5 Sodium, Serum 143 mmol/L (Normal) Range: 135-145 57-Rzj-04426:15 CBC WITH MANUAL DIFF ([id number]) Comments: PATIENT WAS FASTINGClinical Information: [id number] PERFORMED BY: [facility] [facility] [id number] Baso (Absolute) 0.0 {x10E3/uL} (Normal) Range: 0.0-0.2 Basos 0 % (Normal) Range: 0-3 Eos 0 % (Normal) Range: 0-7 Eos (Absolute) 0.0 {x10E3/uL} (Normal) Range: 0.0-0.4 Hematocrit 40.8 % (Normal) Range: 34.0-44.0 Hemoglobin 14.0 g/dL (Normal) Range: 11.5-15.0 Lymphs 28 % (Normal) Range: 14-46 Lymphs (Absolute) 1.7 {x10E3/uL} (Normal) Range: 0.7-4.5 MCH 34.4 pg (Abnormal) Range: 27.0-34.0 MCHC 34.2 g/dL (Normal) Range: 32.0-36.0 MCV 100 fL (Abnormal) Range: 80-98 Monocytes 9 % (Normal) Range: 4-13 Monocytes(Absolute) 0.5 {x10E3/uL} (Normal) Range: 0.1-1.0 Neutrophils 63 % (Normal) Range: 40-74 Neutrophils (Absolute) 3.8 {x10E3/uL} (Normal) Range: 1.8-7.8 Platelets 233 {x10E3/uL} (Normal) Range: 140-415 RBC 4.07 {x10E6/uL} (Normal) Range: 3.80-5.10 RDW 13.5 % (Normal) Range: 11.7-15.0 WBC 6.1 {x10E3/uL} (Normal) Range: 4.0-10.5 :15 TSH (01135) Comments: PATIENT WAS FASTINGPERFORMED BY: [id number] [facility] [place] [id number] TSH 4.390 {uIU/mL} (Normal) Range: 0.450-4.500 :15 Vitamin D Hydroxy (83509) Comments: PATIENT WAS FASTINGPERFORMED BY: [id number] [facility] [place] [id number] Vitamin D, 25-Hydroxy 50.0 ng/mL (Normal) Range: 32.0-100.0 Comments: Recent studies consider the lower limit of 32.0 ng/mL to be athreshold for optimal health.Gage JARAMILLO. J Nutr. 2004;135(2):317-22. 84-Dch-314296:50 Urinalysis, Office (45408) UA - BILIRUBIN Negative (Normal) UA - BLOOD Hemolyzed Large (Normal) UA - GLUCOSE Negative (Normal) UA - KETONES Negative mg/dL (Normal) UA - LEUKOCYTE ESTERASE Trace (Normal) UA - NITRITE Negative (Normal) UA - PH 7.0 (Normal) UA - PROTEIN Negative mg/dL (Normal) UA - SPECIFIC GRAVITY 1.025 (Normal) URINE UROBILINGN LEWIS TIMED 2 mg/dL (Normal) 19-Qgq-057501:00 CULTURE, URINE URINE CULTURE See Note {CFU/mL} (Normal) Comments: COLONY COUNT 80,000-100,000 ORGANISM 1: MIXED GRAM POSITIVE ORGANISMS Plan of Care Name Dates Details Instructions Benign Essential Hypertension (Renamed from Benign essential HTN) : Eprescribed prescriptions (G8553) Indication: Benign Essential Hypertension (Renamed from Benign essential HTN) Multiple sclerosis : Eprescribed prescriptions (G8553) Indication: Multiple sclerosis [facility] WELLNESS EXAM : Eprescribed prescriptions (G8553) Indication: [facility] WELLNESS EXAM BMI between 19-24,adult : Eprescribed prescriptions (G8553) Indication: BMI between 19-24,adult Pneumonia, bacterial : Eprescribed prescriptions (G8553) Indication: Pneumonia, bacterial Benign Essential Hypertension (Renamed from Benign essential HTN) : Eprescribed prescriptions (G8553) Indication: Benign Essential Hypertension (Renamed from Benign essential HTN) [facility] wellness exam : Eprescribed prescriptions (G8553) Indication: [facility] wellness exam Hallucinations, visual : Eprescribed prescriptions (G8553) Indication: Hallucinations, visual Mixed incontinence : Eprescribed prescriptions (G8553) Indication: Mixed incontinence Multiple sclerosis : Multiple Sclerosis *: ms Indication: Multiple sclerosis Multiple sclerosis : Eprescribed prescriptions (G8553) Indication: Multiple sclerosis Episode of recurrent major depressive disorder, unspecified depression episode severity : Eprescribed prescriptions (G8553) Indication: Episode of recurrent major depressive disorder, unspecified depression episode severity Episode of recurrent major depressive disorder, unspecified depression episode severity : Eprescribed prescriptions (G8553) Indication: Episode of recurrent major depressive disorder, unspecified depression episode severity Episode of recurrent major depressive disorder, unspecified depression episode severity : Eprescribed prescriptions (G8553) Indication: Episode of recurrent major depressive disorder, unspecified depression episode severity Pain in unspecified hip : Eprescribed prescriptions (G8553) Indication: Pain in unspecified hip Benign Essential Hypertension (Renamed from Benign essential HTN) : Blood Pressure: blood pressure Indication: Benign Essential Hypertension (Renamed from Benign essential HTN) Benign Essential Hypertension (Renamed from Benign essential HTN) : Eprescribed prescriptions (G8553) Indication: Benign Essential Hypertension (Renamed from Benign essential HTN) Lesion of lower extremity : Follow up in about 7-8 days if no improvement Indication: Lesion of lower extremity Osteoporosis of multiple sites : Eprescribed prescriptions (G8553) Indication: Osteoporosis of multiple sites Osteopenia : Eprescribed prescriptions (G8553) Indication: Osteopenia Osteopenia : Osteoporosis in Women *: bone Indication: Osteopenia Other specified viral infection, in conditions classified elsewhere and of unspecified site : *URI Symptoms Indication: Other specified viral infection, in conditions classified elsewhere and of unspecified site Other specified viral infection, in conditions classified elsewhere and of unspecified site : *URI Treatment Indication: Other specified viral infection, in conditions classified elsewhere and of unspecified site Diarrhea : Diarrhea Education Indication: Diarrhea Wheezing : FOLLOW UP IN 2 DAYS with [facility] Indication: Wheezing Eczema herpeticum : FOLLOW UP NEEDED Indication: Eczema herpeticum Atypical Spitz nevus : Punch Biopsy with Epi Indication: Atypical Spitz nevus Osteopenia : Bisphosphonate Education Indication: Osteopenia Planned Observations URINE SULAIMAN CULTURE-LEWIS COL COUNT (56716)Indication: UTI (urinary tract infection) On: 64-Ahq-084931:25 Request URINE SULAIMAN CULTURE-IDENTIFICATN (31031)Indication: Mixed incontinence On: 10-Rtz-454803:52 Request Vitamin D Hydroxy (17318)Indication: Chronic fatigue On: 63-Axt-639284:04 Request CBC, PLATELETS & AUT DIFF (44627)Indication: Chronic fatigue On: 44-Oqm-078407:03 Request VITAMIN B-12 (CYANOCOBALAMIN) (74810)Indication: Chronic fatigue On: 18-Lej-988739:03 Request TSH (86734)Indication: Osteoporosis of multiple sites On: 66-Vht-988349:01 Request URINALYSIS, W/ MICRO (73471)Indication: Benign Essential Hypertension (Renamed from Benign essential HTN) On: 41-Ioj-864548:01 Request LIPID PANEL (09297)Indication: Benign Essential Hypertension (Renamed from Benign essential HTN) On: 95-Afk-504803:00 Request METABOLIC PANEL, COMPREHENSIVE (99349)Indication: Benign Essential Hypertension (Renamed from Benign essential HTN) On: 48-Uzc-858940:00 Request SPEP (10178)Indication: Osteoporosis of multiple sites On: 3-Ubz-274960:20 Request UPEP (20274)Indication: Osteoporosis of multiple sites On: 1-Bvc-923359:19 Request URINALYSIS, W/ MICRO (49345)Indication: Elevated blood-pressure reading without diagnosis of hypertension On: 3-Kye-302802:52 Request URINALYSIS, W/ MICRO (39784)Indication: Elevated blood-pressure reading without diagnosis of hypertension On: 4-Xgz-763298:20 Request URINE SULAIAMN CULTURE-LEWIS COL COUNT (15139)Indication: Abnormal urine On: :20 Request Urinalysis, Office (05209)Indication: Abnormal urine On: 46-Ctj-387926:19 Request SULAIMAN CULTURE-STOOL (85399)Indication: Diarrhea On: 38-Noo-790169:13 Request Clostridium difficile Toxin A+B, EIA (90402)Indication: Diarrhea On: 55-Mbk-816453:13 Request LEUKOCYTE COUNT, FECAL (97071)Indication: Diarrhea On: :58 Request C-DIFFICILE, STOOL (20083)Indication: Diarrhea On: 20-Nur-034097:58 Request URINALYSIS W/O MICRO (76635)Indication: Osteopenia On: 77-Bha-493613:23 Request METABOLIC PANEL, COMPREHENSIVE (62828)Indication: Osteopenia On: :33 Request CBC WITH MANUAL DIFF (73343)Indication: Osteopenia On: :33 Request TSH (84006)Indication: Osteopenia On: :33 Request Vitamin D Hydroxy (19072)Indication: Osteopenia On: :33 Request URINE SULAIMAN CULTURE (LEWIS COL COUNT) (39439)Indication: Dysuria On: 51-Krm-229468:55 Request Planned Encounters Medical; [facility] 3 Month FU - On: 23-Apr-2018 13:00 [facility] Fast DO, Allison A Fast DO, Allison A Planned Procedures DEXA SCAN AXIAL SKELETON ([id number])By: On: 18-Jan-2018 Intent Fast DO, Allison A Fast DO, Allison A SCREENING DIGITAL TOMOSYNTHESIS OF On: 18-Jan-2018 Intent BREAST ([id number])By: Fast DO, Allison A Fast DO, Allison A Flu Vaccine (Quadrivalent) 65703Gz: On: 18-Jan-2018 Intent Fast DO, Allison A Fast DO, Allison A Comments: Lot: [id number]: 10/13/18Site: L dltd, IMDose prefilled syringegiven by: Diaz reviewed and ABN signed ELECTROCARDIOGRAM, COMPLETE (ECG) On: 05-Sep-2017 Intent (50565)By: Fast DO, Allison A Fast DO, Comments: ekg showed normal sinus rhythym, normal axis, no acute st/t wave changes Allison A Flu Vaccine (Quadrivalent) 72941Dz: On: 11-Apr-2017 Intent Fast DO, Allison A Fast DO, Allison A Comments: Lot:[id number]:07/2017Dose:0.5mLRoute:IMSite:L DltdGiven By:ALVIN signed Radiology - Chest- PA and LatBy: On: 16-Jan-2017 Intent Guy DO, Alilson A Fast DO, Allison A Comments: stat call results Aerosol Treatment ([id number])By: Guy On: 16-Jan-2017 Intent DO, Allison A Fast DO, Allison A SCREENING DIGITAL TOMOSYNTHESIS OF On: 12-Dec-2016 Intent BREAST ([id number])By: Nelsy Tovar DOa A Comments: end of feb Guy DO, Allison A ELECTROCARDIOGRAM, COMPLETE (ECG) On: 12-Jun-2016 Intent (68075)By: Guy DURAN Allison A Fast DO, Comments: ekg showed normal sinus rhythym, normal axis, no acute st/t wave changes lvh Allison A Bone Density StudyBy: Allison Tovar DO On: 17-Mar-2016 Intent A Fast DO, Allison A Comments: Pt had one in nov but was only on her forearms because was in a wheelchair. Pt wants to have it done on her hips and spine. DEXA SCAN AXIAL SKELETON (26177)By: On: 29-Feb-2016 Intent Guy DURAN, Allison A Fast DO, Allison A MAMMOGRAM, SCREENING, BOTH BREAST On: 29-Feb-2016 Intent ([id number])By: Allison Tovar DO DO, Allison A Radiology - Lumbar SpineBy: Guy DURAN, On: 26-Jan-2016 Intent Allison A Fast DO, Allison A Flu Vaccine (Quadrivalent) 12131Cs: On: 25-Jan-2016 Intent Guy DURAN, Allison A Fast DO, Allison A Comments: Lot #:[id number] date:10/13/16mount given:0.5 mlRoute: IMSite given: right delGiven by: DIOR Trevino ADMINISTRATION OF INFLUENZA VIRUS On: 25-Jan-2016 Intent VACCINE (G0008)By: Allison Tovar DO A Guy DURAN, Allison A MRI OF BRAIN WITH AND WITHOUT On: 11-Oct-2015 Intent CONTRAST ([id number])By: Nelsy Tovar DOa A Comments: and ms and issues with inability to speak and bladder incontinence Allison Tovar DO A INJECTION, PROLIA ([id number])By: Guy On: 02-Jul-2015 Intent , Allison A Guy DO, Allison A Comments: Lot:[id number]:12/01Dose:60mlRoute:sub q Site:l armGiven By:ALVIN signed Flu Vaccine (Quadrivalent) 37858Um: On: 01-Feb-2015 Intent Fast DO, Allison A Fast DO, Allison A Comments: Lot:[id number]:10/14/15Dose:0.5mLRoute:IMSite:L DltdGiven By:ALVIN signed INJECTION, PROLIA ([id number])By: Guy On: 24-Dec-2014 Intent DO, Allison A Fast DO, Allison A Comments: Lot:[id number]:04/01Dose:0.65MLRoute:sub qSite:l arm Given By:ALVIN signed Radiology - Hip - RightBy: Fast DO, On: 05-Oct-2014 Intent Allison A Fast DO, Allison A EKG ([id number])By: Fast DO, Allison A On: 05-Oct-2014 Intent Fast DO, Allison A Comments: ekg showed normal sinus rhythym, normal axis, no acute st/t wave changes lvh MAMMOGRAM, SCREENING, BOTH BREAST On: 05-Oct-2014 Intent (90231)By: Fast DO, Allison A Fast DO, Allison A INJECTION, PROLIA ([id number])By: Guy On: 17-Jun-2014 Intent DO, Allison A Fast DO, Allison A Comments: lot: [id number]: 12/31site/route: L arm/SQamt: prefilled syringe, 60mgVIS signed when applicableChelsea, DAY WORKER ADMINISTRATION OF INFLUENZA VIRUS On: 16-Feb-2014 Intent VACCINE (G0008)By: Visit, Nurse Flu Vaccine (Quadrivalent) 56930Ui: On: 16-Feb-2014 Intent Fast DO, Allison A Fast DO, Allison A Comments: Lot:[id number]:09/28Dose:0.5mLRoute:IMSite:L DltdGiven By:ALVIN signed INJECTION, PROLIA ([id number])By: Visit, On: 08-Jan-2014 Intent Nurse Comments: [id number] arm, SCMegan IMMUNIZ ADMNIN, 1 VAC, SNGL/COMBO On: 24-Nov-2013 Intent (81384)By: Fast DO, Allison A Fast DO, Allison A PNEUM VAC ADLT/IMUMNOSPR, SBC/INTRM On: 24-Nov-2013 Intent (94609)By: Fast DO, Allison A Fast DO, Comments: lot [id number] 06/10/14location L deltoidroute imgiven by - msmith VIS and/or ABN signed Allison A DEXA SCAN AXIAL SKELETON (55531)By: On: 24-Nov-2013 Intent Fast DO, Allison A Fast DO, Allison A MAMMOGRAM, SCREENING, BOTH BREAST On: 24-Nov-2013 Intent (77325)By: Fast DO, Allison A Fast DO, Allison A MAMMOGRAM, SCREENING, BOTH BREASTS On: 18-Nov-2012 Intent (87994)By: Fast DO, Allison A Fast DO, Comments: november Allison A Eprescribed prescriptions (G8553)By: On: 18-Nov-2012 Intent Kinjal Zacarias FLU VAC, SPLIT, >3 YEARS, INTRAMUSC On: 20-Dec-2011 Intent (98327)By: Kinjal Zacarias Comments: Lot #:[id number] date:mount given:0.5mlRoute: IMSite given: left deltoidGiven by: DIOR Trevino ADMNIN, 1 VAC, SNGL/COMBO On: 20-Dec-2011 Intent (75161)By: Kinjal Zacarias EKG (91422)By: Fast DO, Allison A On: 21-Nov-2011 Intent Fast DO, Allison A Comments: ekg showed normal sinus rhythym, normal axis, no acute st/t wave changes lvh no change Eprescribed prescriptions (G8553)By: On: 21-Nov-2011 Intent Fast DO, Allison A Fast DO, Allison A MAMMOGRAM, SCREENING, BOTH BREASTS On: 21-Nov-2011 Intent ([id number])By: Fast DO, Allison A Fast DO, Allison A DXA, BONE DENSITY, AXIAL SKELETON On: 21-Nov-2011 Intent (65240)By: Fast DO, Allison A Fast DO, Allison A TDAP VACCINE >7 IM ([id number])By: On: 21-Nov-2011 Intent Kinjal Zacarias Comments: T-Dap InjLot:[id number]:02/21/14Site:right deltoid,IMGiven By:MINDA JORGENSEN VAC, SPLIT, >3 YEARS, INTRAMUSC On: 30-Jan-2011 Intent (15034)By: Suzanne Ramon RN Comments: Lot #: [id number] date: 09/25Amount given: 0.5 mlRoute: IMSite given: left deltoidGiven by: JONNIE Angeles IMMUNIZ ADMNIN, 1 VAC, SNGL/COMBO On: 30-Jan-2011 Intent (16993)By: Suzanne Ramon RN Endoscopy - Cookie SwallowBy: On: 04-Oct-2010 Intent Kinjal Zacarias PFT - CompleteBy: Guy DO Allison A On: 04-Oct-2010 Intent Guy DO Allison A Pulse Oximetry (86884)By: Natalya RUBIO, On: 28-Sep-2010 Intent Valeria Springer Aerosol Treatment ([id number])By: Natalya On: 28-Sep-2010 Intent Valeria RUBIO Radiology - ChestBy: Valeria Hoang CNP On: 26-Sep-2010 Intent E Comments: call wet read Eprescribed prescriptions (G8553)By: On: 26-Sep-2010 Intent Natalya RUBIO Taryn Inhaler Demonstration ([id number])By: On: 26-Sep-2010 Intent Natalya RUBIO Taryn Pulse Oximetry (91147)By: Natalya RUBIO, On: 26-Sep-2010 Intent Valeria Springer Aerosol Treatment (52515)By: Natalya On: 26-Sep-2010 Intent JOANNE Taryn MAMMOGRAM, SCREENING, BOTH BREASTS On: 07-Sep-2009 Intent ([id number])By: Nelsy Tovar DOa A Fast DO, Comments: due in feb Allison A IMMUNIZ ADMNIN, 1 VAC, SNGL/COMBO On: 21-Jan-2009 Intent (06438)By: Suzanne Ramon RN FLU VAC, SPLIT, >3 YEARS, INTRAMUSC On: 21-Jan-2009 Intent (59994)By: Suzanne Ramon RN MAMMOGRAM, SCREENING, BOTH BREASTS On: 24-Dec-2008 Intent (79484)By: Fast DO, Allison A Fast DO, Allison A DXA, BONE DENSITY, AXIAL SKELETON On: 24-Dec-2008 Intent ([id number])By: Fast DO, Allison A Fast DO, Allison A PFT - CompleteBy: Fast DO, Allison A On: 24-Dec-2008 Intent Fast DO, Allison A Comments: at [facility] PNEUM VAC ADLT/IMUMNOSPR, SBC/INTRM On: 01-Apr-2008 Intent ([id number])By: Melanie Goldstein Comments: Lot #[id number]/24Site-left deltoidDose0.5mlgiven by Sabiha Goldstein LPN IMMUNIZ ADMNIN, 1 VAC, SNGL/COMBO On: 01-Apr-2008 Intent (56458)By: Melanie Goldstein Echo CompleteBy: Fast DO, Allison A On: 01-Apr-2008 Intent Fast DO, Allison A Comments: next week- please- for preop Spirometry ([id number])By: Fast DO, On: 01-Apr-2008 Intent Allison A Fast DO, Allison A Radiology - Chest- PA and LatBy: On: 01-Apr-2008 Intent Fast DO, Allison A Fast DO, Allison A EKG ([id number])By: Kinjal Zacarias On: 01-Apr-2008 Intent Comments: ekg showed normal sinus rhythym, normal axis, no acute st/t wave changes lvh FLU VAC, SPLIT, >3 YEARS, INTRAMUSC On: 18-Feb-2007 Intent ([id number])By: Suzanne Ramon RN Comments: Lot #: [id number] date: 09/21Amount given: 0.5 mlRoute: IMSite given: Left deltoidGiven by: Sushila Torres LPN IMMUNIZ ADMNIN, 1 VAC, SNGL/COMBO On: 18-Feb-2007 Intent (94222)By: Suzanne Ramon RN Planned Medications INJECTION, PROLIA Ordered: 08-Jan-2014 Pending Visit, Nurse INJECTION, PROLIA Ordered: 17-Jun-2014 Pending Fast DO, Allison A Fast DO, Allison A INJECTION, PROLIA Ordered: 24-Dec-2014 Pending Fast DO, Allison A Fast DO, Allison A INJECTION, PROLIA Ordered: 02-Jul-2015 Pending Fast DO, Allison A Fast DO, Allison A Instructions Name Dates Details Benign Essential Hypertension (Renamed from Benign essential HTN) : How to access health information online Indication: Benign Essential Hypertension (Renamed from Benign essential HTN) Benign Essential Hypertension (Renamed from Benign essential HTN) : How to access health information online - Detail Indication: Benign Essential Hypertension (Renamed from Benign essential HTN) Benign Essential Hypertension (Renamed from Benign essential HTN) : Patient Instructions Indication: Benign Essential Hypertension (Renamed from Benign essential HTN) Multiple sclerosis : How to access health information online Indication: Multiple sclerosis Multiple sclerosis : How to access health information online - Detail Indication: Multiple sclerosis Multiple sclerosis : Patient Instructions Indication: Multiple sclerosis [facility] WELLNESS EXAM : How to access health information online Indication: [facility] WELLNESS EXAM [facility] WELLNESS EXAM : How to access health information online - Detail Indication: [facility] WELLNESS EXAM [facility] WELLNESS EXAM : Patient Instructions Indication: [facility] WELLNESS EXAM BMI between 19-24,adult : How to access health information online Indication: BMI between 19-24,adult BMI between 19-24,adult : How to access health information online - Detail Indication: BMI between 19-24,adult BMI between 19-24,adult : Patient Instructions Indication: BMI between 19-24,adult Pneumonia, bacterial : How to access health information online Indication: Pneumonia, bacterial Pneumonia, bacterial : How to access health information online - Detail Indication: Pneumonia, bacterial Pneumonia, bacterial : Patient Instructions Indication: Pneumonia, bacterial Benign Essential Hypertension (Renamed from Benign essential HTN) : How to access health information online - Detail Indication: Benign Essential Hypertension (Renamed from Benign essential HTN) Benign Essential Hypertension (Renamed from Benign essential HTN) : Patient Instructions Indication: Benign Essential Hypertension (Renamed from Benign essential HTN) [facility] wellness exam : How to access health information online Indication: [facility] wellness exam [facility] exam : How to access health information online - Detail Indication: [facility] wellness exam [facility] exam : Patient Instructions Indication: [facility] wellness exam Hallucinations, visual : How to access health information online Indication: Hallucinations, visual Hallucinations, visual : How to access health information online - Detail Indication: Hallucinations, visual Hallucinations, visual : Patient Instructions Indication: Hallucinations, visual Mixed incontinence : How to access health information online Indication: Mixed incontinence Mixed incontinence : How to access health information online - Detail Indication: Mixed incontinence Mixed incontinence : Patient Instructions Indication: Mixed incontinence BMI between 19-24,adult : How to access health information online Indication: BMI between 19-24,adult BMI between 19-24,adult : How to access health information online - Detail Indication: BMI between 19-24,adult BMI between 19-24,adult : Patient Instructions Indication: BMI between 19-24,adult Multiple sclerosis : How to access health information online Indication: Multiple sclerosis Multiple sclerosis : How to access health information online - Detail Indication: Multiple sclerosis Multiple sclerosis : Patient Instructions Indication: Multiple sclerosis Episode of recurrent major depressive disorder, unspecified depression episode severity : How to access health information online Indication: Episode of recurrent major depressive disorder, unspecified depression episode severity Episode of recurrent major depressive disorder, unspecified depression episode severity : How to access health information online - Detail Indication: Episode of recurrent major depressive disorder, unspecified depression episode severity Episode of recurrent major depressive disorder, unspecified depression episode severity : Patient Instructions Indication: Episode of recurrent major depressive disorder, unspecified depression episode severity Episode of recurrent major depressive disorder, unspecified depression episode severity : How to access health information online Indication: Episode of recurrent major depressive disorder, unspecified depression episode severity Episode of recurrent major depressive disorder, unspecified depression episode severity : How to access health information online - Detail Indication: Episode of recurrent major depressive disorder, unspecified depression episode severity Episode of recurrent major depressive disorder, unspecified depression episode severity : Patient Instructions Indication: Episode of recurrent major depressive disorder, unspecified depression episode severity Episode of recurrent major depressive disorder, unspecified depression episode severity : How to access health information online Indication: Episode of recurrent major depressive disorder, unspecified depression episode severity Episode of recurrent major depressive disorder, unspecified depression episode severity : How to access health information online - Detail Indication: Episode of recurrent major depressive disorder, unspecified depression episode severity Episode of recurrent major depressive disorder, unspecified depression episode severity : Patient Instructions Indication: Episode of recurrent major depressive disorder, unspecified depression episode severity Pain in unspecified hip : Patient Instructions Indication: Pain in unspecified hip Benign Essential Hypertension (Renamed from Benign essential HTN) : How to access health information online Indication: Benign Essential Hypertension (Renamed from Benign essential HTN) Benign Essential Hypertension (Renamed from Benign essential HTN) : How to access health information online - Detail Indication: Benign Essential Hypertension (Renamed from Benign essential HTN) Benign Essential Hypertension (Renamed from Benign essential HTN) : Patient Instructions Indication: Benign Essential Hypertension (Renamed from Benign essential HTN) Osteoporosis of multiple sites : How to access health information online Indication: Osteoporosis of multiple sites Osteoporosis of multiple sites : How to access health information online - Detail Indication: Osteoporosis of multiple sites Osteoporosis of multiple sites : Patient Instructions Indication: Osteoporosis of multiple sites Osteopenia : Patient Instructions Indication: Osteopenia Multiple sclerosis : Patient Instructions Indication: Multiple sclerosis Need for prophylactic vaccination and inoculation against influenza : Patient Instructions Indication: Need for prophylactic vaccination and inoculation against influenza Encounters Office Visit On: 18-Jan-2018 12:51 Encounter Reason: Follow up tests - Date: (blood work 01/16)., [ADDITIONAL REASON] Follow up for chronic medical issues - The patient feels well with no complaints End: 20-Jan-2018 20:41 , has decreased energy level (about the same) and is sleeping well. Patient has been compliant with instructions. Current medication use: no side effects and compliant with dosing regimen. Patient sleep s 10 hours per night. Nutrition: balanced diet, supplemental vitamins and low salt diet. The medical issues the patient is following up for include All identified problems below, osteoporosis/osteopenia and other (MS). Note for Follow up for chronic medical issues: feeling pretty good energy better and moving better and mood pretty good and sleeping good- and breathing good - we talked about the shingles vaccine Encounter Diagnosis: Nonsmoker, BMI between 19-24,adult, Need for prophylactic vaccination and inoculation against influenza (Renamed from Need for immunization against influenza), Osteoporosis of multiple sites, Benign Essential Hypertension (Renamed from Benign essential HTN), Multiple sclerosis, Chronic obstructive pulmonary disease, Encounter for screening mammogram for breast cancer (Renamed from Encounter for screening mammogram for malignant neoplasm of breast), Postmenopausal (Renamed from Postmenopausal status), Hyperlipidemia [facility] Office Visit On: 16-Oct-2017 12:55 Encounter Reason: Follow up tests - Date: (08/14 blood work)., [ADDITIONAL REASON] Follow up for chronic medical issues - The patient feels well with no complaints End: 18-Oct-2017 19:57 , has decreased energy level and is sleeping well. Patient has been compliant with instructions. Current medication use: no side effects and compliant with dosing regimen. Patient sleeps 10 hours per ni ght. Nutrition: balanced diet, supplemental vitamins and low salt diet. The medical issues the patient is following up for include All identified problems below, osteoporosis/osteopenia and other (MS). Note for Follow up for chronic medical issues: her mood significantly better more motivation and trying to exercise now and smiling alot more- she taking ampyra and she also thinks helping she can darby e bath now by herself and get up by herself out of bed and get to bathroom by herself- her posture better - bowels and bladder working better- insurance has denied thus far the ocrevus Encounter Diagnosis: BMI between 19-24,adult, Nonsmoker, Multiple sclerosis, Depression, Inability to walk, Benign Essential Hypertension (Renamed from Benign essential HTN), Osteoporosis of multiple sites, Hyperlipidemia [facility] Office Visit On: 05-Sep-2017 13:12 Encounter Reason: Physical female exam - Last seen between 1-3 months ago. General health: feels well with minor complaints (would like toenail on R foot, thinks possible fungus), has good energy level (about the same) a End: 14-Oct-2017 21:28 nd is sleeping well. The patient's appetite is normal. Nutrition: normal/adequate. Exercises 0 days per week. Sleeps on average 10 hours per night. Elimination problems include urinary incontinence (due to MS). Current emotional problems include depression. screening, colonoscopy and screening, mammography (02/2016). Note for Physical exam: she is feeling blue -doesnt care about stuff any more not g etting outside - cant walk and she having more issue susing upper ext- and she talked to Rachel and they are going to try one of the new meds for MS- ONE FOR SPASTIC GAIT- AMYRA AND ONE FOR DMARD- OCREVU S- not earful- just not motivated not getting grover out of life- has eye exam every 6 months and skin exam ok in the last yearEncounter Diagnosis: [facility] WELLNESS EXAM, Inability to walk, Multiple sclerosis, Depression, Benign Essential Hypertension (Renamed from Benign essential HTN), Osteoporosis of multiple sites [facility] Office Visit On: 17-Apr-2017 12:48 Encounter Reason: Follow up for chronic medical issues - The patient feels well with no complaints, has decreased energy level and is sleeping well. Patient has been compliant with instructions. Current medication use: n End: 17-Apr-2017 13:45 o side effects and compliant with dosing regimen. Patient sleeps 10 hours per night. Nutrition: balanced diet, supplemental vitamins and low salt diet. The medical issues the patient is following up for include All identified problems below, osteoporosis/osteopenia and other (MS). Note for Follow up for chronic medical issues: mood is good and sleeping ok bp is good and not exercising so weight gilberto g up we discussed chair exercises- her energy better with meds than without but the effect not last long- saw derm all ok-, [ADDITIONAL REASON] Follow up tests - Date: (04/06 blood work). Encounter Diagnosis: Nonsmoker, BMI between 19-24,adult, Benign Essential Hypertension (Renamed from Benign essential HTN), Low back pain potentially associated with radiculopathy, Chronic fatigue, Osteoporosis of multiple sites, Chronic obstructive pulmonary disease, Depression [facility] Office Visit On: 11-Apr-2017 8:12 Encounter Reason: Injections - The medication the patient is here to receive is other (influ).Encounter Diagnosis: Need for prophylactic vaccination and inoculation against influenza (Renamed from Need for immunization against influenza) End: 14-Apr-2017 16:30 [facility] Office Visit On: 16-Jan-2017 11:40 Encounter Reason: Follow up acute care visit - The patient feeling better since last seen (still has productive cough.) and improving. Patient has been compliant with instructions. Current medication use: experiencing si End: 16-Jan-2017 14:43 de effects (always has some s/e from prednisone.) and compliant with dosing regimen (finished last prednisone today, still taking Levaquin.). Note for Follow up acute care visit: feels better than did no fever but still cough and wheeze- sob if gets phlegm in throat- inhlaer helps alotEncounter Diagnosis: Nonsmoker, BMI between 19-24,adult, Pneumonia, bacterial, Wheezing [facility] Office Visit On: 11-Jan-2017 13:19 Encounter Diagnosis: Acute bronchitis, bacterial, Pneumonia, bacterial End: 11-Jan-2017 13:34 [facility] Office Visit On: 12-Dec-2016 12:57 Encounter Reason: Follow up for chronic medical issues - The patient feels well with minor complaints (Has a skin lesion left chest that she noticed a couple days ago. Not painful), has decreased energy level and is slee End: 12-Dec-2016 21:24 ping well. Patient has been compliant with instructions. Current medication use: no side effects and compliant with dosing regimen. Patient sleeps 10 hours per night. Nutrition: balanced diet, supplemen luis vitamins and low salt diet. The medical issues the patient is following up for include All identified problems below, osteoporosis/osteopenia and other (MS). Note for Follow up for chronic medical issues: - she has gone up in weight feeling pretty good esting more weight up less active more in wheelchair- did have colonsocopy and had tubular adenoma recheck 4 years- she not doing the exercises weights like we had discussed, [ADDITIONAL REASON] Follow up tests - Date: (12/04 blood work). Encounter Diagnosis: BMI between 19-24,adult, Nonsmoker, Chronic fatigue, Cerebellar ataxia, Multiple sclerosis, Benign Essential Hypertension (Renamed from Benign essential HTN), Osteoporosis (Renamed from OP (osteoporosis)), Atypical nevus of back, Colon polyp, Encounter for screening mammogram for breast cancer (Renamed from Encounter for screening mammogram for malignant neoplasm of breast) [facility] Office Visit On: 12-Jun-2016 13:23 Encounter Reason: Physical female exam - Last seen between 1-3 months ago. General health: feels well with minor complaints (c/o a feeling of someone pushing down on both shoulders and experiencing SOB that happens occas End: 27-Jun-2016 21:57 sionally at random times. Has been experiencing over the last week and half but has also experienced these symptoms before. ), has good energy level (somewhat better) and is sleeping well. The patient's appetite is normal. Nutrition: normal/adequate. Exercises 0 days per week. Sleeps on average 12 (broken hours) hours per night. Elimination problems include urinary incontinence (due to MS). There are no current emotional problems. screening, colonoscopy (Dr. campoverde, more than 10 yrs ago) and screening, mammography (02/2016). 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 Patient has been compliant with instructions. Current medication use: no side effects and complian End: 01-Mar-2016 20:45 t with dosing regimen. Patient sleeps 10 hours per night. Nutrition: balanced diet. Note for Follow up Meds: Pt following up on lower the Wellbutrin to 150mg once daily which has helped a lot. Pt feel s great and no more Hallucinations. Dr. 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, Mixed incontinence [facility] Phone Encounter On: 31-Jan-2016 14:22 Encounter Diagnosis: UTI (urinary tract infection) End: 31-Jan-2016 14:25 [facility] Phone Encounter On: 26-Jan-2016 16:35 Encounter Diagnosis: Low back pain potentially associated with radiculopathy End: 26-Jan-2016 16:46 [facility] Phone Encounter On: 26-Jan-2016 15:22 Encounter Diagnosis: Hypercalcemia End: 26-Jan-2016 15:23 [facility] Office Visit On: 25-Jan-2016 13:06 Encounter Reason: Follow up for chronic medical issues - The patient feels well with minor complaints (MS is worsening- cant really walk anymore. Needs help getting back into bed -- and urinating-- notes hallucin End: 25-Jan-2016 23:00 ations and seeing things. Wants to talk about getting home health services in there till he retires. Or [employer] members helping. Incontinence getting worse.), has decreased energy level and is sleeping p oorly. Patient has been compliant with instructions. Current medication use: no side effects and compliant with dosing regimen. Patient sleeps 9 hours per night. Nutrition: balanced diet, supplemental v itamins and low salt diet. The medical issues the patient is following up for include All identified problems below, osteoporosis/osteopenia and other (MS). Note for Follow up for chronic medical issue s: she can no longer walk and unable to get herself out of any chair- and having to lift her up and putting ??her on toilet and getting hard to do - has neurology appt in 9days- [place] saw sibil ia ok [facility]- and no uti s but urinary incontinence worse and really cant take care of self much hubby having to do most- bowels ok - mood ok, [ADDITIONAL REASON] Hallucinations - Symptoms include auditory hallucinations and visual hallucinati ons. Symptoms are noted by the spouse. Onset was gradual year(s) ago. Onset followed physical illness. The symptoms occur frequently. The patient describes this as moderate in severity and worsening. Sy mptoms are exacerbated by fatigue. Associated symptoms include depressed mood, paranoia and memory impairment, while associated symptoms do not include suicidal thoughts or suicide plan. The patient is not currently being treated for this problem. Note for Hallucinations: has noticed these for couple years not like now- though- initially was paranoia and then got better now more visual -seeing thing s very clearly whole pictures and will wake up with this whole story Encounter Diagnosis: Mixed incontinence, Nonsmoker, BMI less than 19,adult, Need for prophylactic vaccination and inoculation against influenza (Renamed from Need for immunizati on against influenza), Hallucinations, visual, Benign Essential Hypertension (Renamed from Benign essential HTN), Episode of recurrent major depressive disorder, unspecified depression episode severity, Chronic obstructive pulmonary disease, Osteoporosis (Renamed from OP (osteoporosis)), Inability to walk, Pain in unspecified hip, Multiple sclerosis, Low back pain potentially associated with radiculopathy [facility] Office Visit On: 27-Oct-2015 11:30 Encounter Reason: Follow up tests - Diagnostic tests include MRI (brain), other (labs ) and X-Ray (right hip). Date: (10/13/15 ). Note for Discuss procedure results: still fatigueno change in symptoms got mri no acute d End: 28-Oct-2015 16:16 emyleination and compare to 3 years ago not show any acute then- also labs normal hasnt got drug yet (nuvagil from neuro as was still issue with rx)Encounter Diagnosis: BMI between 19-24,adult, Nonsmoker, Chronic fatigue, Mixed incontinence, Multiple sclerosis [facility] Phone Encounter On: 19-Oct-2015 15:36 Encounter Diagnosis: UTI (urinary tract infection) End: 19-Oct-2015 15:39 [facility] Office Visit On: 11-Oct-2015 9:53 Encounter Reason: Follow up for chronic medical issues - The patient feels well with minor complaints (Not doing as well with the MS. Has been having issue with [facility] getting medications. Has stopped excersing, energy is n End: 11-Oct-2015 21:34 ot as well now because of that. Having some blotchiness of the skin.), has decreased energy level and is sleeping well. Patient has been compliant with instructions. Current medication use: no side effe cts and compliant with dosing regimen. Patient sleeps 9 hours per night. Nutrition: balanced diet, supplemental vitamins and low salt diet. The medical issues the patient is following up for include All identified problems below, osteoporosis/osteopenia and other (MS). Note for Follow up for chronic medical issues: saw [facility] neurologist at [facility]- they are trying to get her on tiera soares/roberto- Claudia stratton- neuro at [facility]- she really struggling to get around- 2 years since mri of brain - she not sure whether progression of disease or not - she having more issues with ge tting words out - more bladder incontinence and sleeping into 11 instead of 8- they havent followed up on meds he has tried to email back- the mood mediciines helped and tolerating and tolerated prolia ok- and had prevnar- had one episode had to use inhaler was damp outside and helped but otherwise breathing ok - stephany says eating well and feels hermood betterEncounter Diagnosis: Benign Essential Hypertension (Renamed from Benign essential HTN), Multiple sclerosis, Inability to walk, Fatigue, Osteoporosis (Renamed from OP (osteoporosis)), Episode of recurrent major depressive disorder, unspecified depression episode severity, Urinary incontinence [facility] Office Visit On: 02-Jul-2015 10:30 Encounter Reason: Injections - The medication the patient is here to receive is other (prolia).Encounter Diagnosis: Osteoporosis (Renamed from OP (osteoporosis)) End: 02-Jul-2015 10:46 [facility] Office Visit On: 08-Jun-2015 13:41 Encounter Reason: Follow up Meds - The patient feels well with minor complaints (follow-up on meds for depression- celexa and wellbutrin have helped minimally. Depression yet.), has decreased energy level and is sleeping End: 08-Jun-2015 23:01 well. Patient has been compliant with instructions. Current medication use: no side effects and compliant with dosing regimen. Patient sleeps 8 hours per night. Note for Follow up Meds: seeing ruben zaldivar for sleep study - and pending that may be able to get the provigil- - does think that welbutrin helps some but still could be improved- sleeping okEncounter Diagnosis: Episode of recurrent major depressive disorder, unspecified depression episode severity, Benign Essential Hypertension (Renamed from Benign essential HTN) [facility] Office Visit On: 21-Apr-2015 15:50 Encounter Reason: Follow up Meds - The patient feels well with minor complaints (f/u on celexa), has decreased energy level and is sleeping well. Patient has been compliant with instructions. Current medication use: no s End: 22-Apr-2015 17:00 carol effects and compliant with dosing regimen. Patient sleeps 8 hours per night. Note for Follow up Meds: Pt felt the celexa worked well at first and then since not on Provigil since week of thanksgi ing she feels she has went backwards again.- she has taken provigil for 15 years andnow insurance wont cover- so tired alot and [facility] tried to prior auth for her - wont go thru- hubby present says patient really much more down and depressed and needs some perk jeferson off the provigilEncounter Diagnosis: Depressed, Fatigue [facility] Office Visit On: 01-Mar-2015 9:27 Encounter Reason: Follow up for chronic medical issues - The patient feels well with minor complaints (depression for months), has good energy level and is sleeping well. Patient has been compliant with instructions. Cur End: 01-Mar-2015 11:06 rent medication use: no side effects and compliant with dosing regimen. Patient sleeps 9 hours per night. Nutrition: balanced diet, supplemental vitamins and low salt diet. The medical issues the patien t is following up for include All identified problems below, osteoporosis/osteopenia and other (MS). Note for Follow up for chronic medical issues: saw [facility] and we discussed bp and mood- she tolerating prolia well- she sees [facility] forms -not on meds and had discussed meds initially and didnt want but did when she was 56 - and they werent sure she would tolerate- she i s going to talke with them again about options which is reasonable, [ADDITIONAL REASON] Depression - The onset of the depression has been gradual and has been occurrin g in a persistent pattern for months. The course has been increasing. The depression is described as feeling blue, sad and tired. The symptoms have been associated with depression in the past, feeling t ired and recent changes in life (MS is worsening), while the symptoms have not been associated with of a loved one, lack of energy, recent divorce, suicidal attempts or suicidal thoughts. Note for Depression : she feels like her MS is progressing gradually over time and feeels down about that- getting less motivated to do things getting harder every day to do things- she doesnt want to do cous neling as she doesnt feel ??it will back- is taking st gonzalez wort- was on desipramine- for long time she didnt like side effects Encounter Diagnosis: Depressed, Benign Essential Hypertension (Renamed from Benign essential HTN), Osteoporosis (Renamed from OP (osteoporosis)) [facility] Office Visit On: 01-Feb-2015 14:17 Encounter Reason: Injections - The medication the patient is here to receive is other (flushot).Encounter Diagnosis: Need for prophylactic vaccination and inoculation against influenza (V04.81) End: 01-Feb-2015 14:28 [facility] Office Visit On: 24-Dec-2014 11:16 Encounter Reason: Injections - The medication the patient is here to receive is other (prolia).Encounter Diagnosis: Osteopenia (733.90) End: 24-Dec-2014 11:21 [facility] Office Visit On: 02-Nov-2014 9:11 Encounter Reason: Follow up tests - Diagnostic tests include other (labs ) and X- Ray (right hip). Date: (10/26/14). Follow up visit with no current symptoms. Note for Discuss procedure results: she is tolerating losarte End: 02-Nov-2014 10:46 n well and bp perfect - hip still about the sameEncounter Diagnosis: Pelvis/Thigh/Hip Pain (719.45), Benign Essential Hypertension (Renamed from Benign essential HTN), Elevated Blood Pressure without diagnosis of Hypertension (796.2), Eczema herpeticum (054.0) [facility] Office Visit On: 12-Oct-2014 9:45 Encounter Reason: BP nurse visit - There has been no associated dizziness, light headedness, new chest pain, new shortness of breath or other.[facility] End: 12-Oct-2014 10:39 Office Visit On: 05-Oct-2014 9:20 Encounter Reason: Follow up for chronic medical issues - The patient feels well with minor complaints (BP has been running high at home...140/101 on sunday. This is what it has been running on average although the 101 nu End: 05-Oct-2014 10:09 mber is a little high for me. Has been having headaches along with the high BP readings. ), has good energy level (it's ok in the morning but at the end of the day, extremely tired) and is sleeping well . Patient has been compliant with instructions. Current medication use: no side effects and compliant with dosing regimen. Patient sleeps 9 hours per night. Nutrition: balanced diet, supplemental vitami ns and low salt diet. The medical issues the patient is following up for include All identified problems below, osteoporosis/osteopenia and other (MS). Note for Follow up for chronic medical issues: b p up today- she has been keeping an eye on it- she is about same weight and less active due to ms- she had high bp in feb at dr stack and at her neurologist and then in august saw alexandre and was 140/90- and sunday 140/101- her pfts per her sibilia are best they have been - her breathing feels goodEncounter Diagnosis: Benign Essential Hypertension (Renamed from Benign essential HTN), Osteoporosis (Renamed from OP (osteoporosis)), MULTIPLE SCLEROSIS (340.), COPD (496.), screening , Fatigue, Pelvis/Thigh/Hip Pain (719.45) [facility] Office Visit On: 17-Jun-2014 15:11 Encounter Reason: Injections - The medication the patient is here to receive is other (prolia).Encounter Diagnosis: Osteoporosis (Renamed from OP (osteoporosis)) End: 17-Jun-2014 15:23 [facility] Office Visit On: 16-Mar-2014 14:39 Encounter Reason: Follow up acute care visit - The patient feels the same and improving. Patient has been compliant with instructions. Current medication use: no side effects, compliant with dosing regimen and not consid End: 16-Mar-2014 15:38 ered effective by patient. The medical issues the patient is following up for include All identified problems below and other (skin changes ).Encounter Diagnosis: Lesion of lower extremity [facility] Office Visit On: 02-Mar-2014 14:16 Encounter Reason: Skin Problems - The onset of the skin problems has been sudden and they have been occurring in a persistent pattern for 1 month. The course has been constant. The problem is characterized as dryness and End: 02-Mar-2014 14:46 a change in skin color. There has been no associated itching or pain.Encounter Diagnosis: Lesion of lower extremity [facility] Office Visit On: 16-Feb-2014 14:46 Encounter Reason: Injections - The medication the patient is here to receive is other (flu).Encounter Diagnosis: Need for prophylactic vaccination and inoculation against influenza (V04.81) End: 16-Feb-2014 20:58 [facility] Office Visit On: 08-Jan-2014 12:19 Encounter Reason: Injections - The medication the patient is here to receive is other.Encounter Diagnosis: Osteopenia (733.90) End: 08-Jan-2014 21:45 [facility] Annotation/Addendum On: 05-Jan-2014 13:10 Encounter Diagnosis: Osteoporosis (Renamed from OP (osteoporosis)) End: 05-Jan-2014 13:57 [facility] Office Visit On: 19-Dec-2013 9:39 Encounter Reason: Follow up tests - Diagnostic tests include mammography and other (labs and bone dexa). Date: (12/08/13). Follow up visit with no current symptoms.Encounter Diagnosis: Osteoporosis (Renamed from OP (osteoporosis)), End: 21-Dec-2013 22:01 Elevated Blood Pressure without diagnosis of Hypertension (796.2), COPD (496.) [facility] Office Visit On: 24-Nov-2013 9:22 Encounter Reason: Follow up for chronic medical issues - The patient feels well with no complaints, has good energy level and is sleeping well. Patient has been compliant with instructions. Current medication use: no phil End: 24-Nov-2013 21:02 e effects and compliant with dosing regimen. Patient sleeps 9 hours per night. Nutrition: balanced diet, supplemental vitamins and low salt diet. The medical issues the patient is following up for inclu de All identified problems below, osteoporosis/osteopenia and other (MS). Note for Follow up for chronic medical issues: No routine labs done for todays visit.- no issues with actonel - no gerd or dys phagia- and doesnt feellike bp usually up- going to make followup appt with alexandre on lungs- feels therapy did help her msEncounter Diagnosis: Osteopenia (733.90), screening, MULTIPLE SCLEROSIS (340.), Elevated Blood Pressure without diagnosis of Hypertension (796.2), COPD (496.) [facility] Office Visit On: 18-Nov-2012 12:18 Encounter Reason: Follow up for chronic medical issues - The patient feels well with no complaints, has good energy level and is sleeping well. Patient has been compliant with instructions. Current medication use: no phil End: 18-Nov-2012 23:16 e effects and compliant with dosing regimen. Patient sleeps 9 hours per night. Nutrition: balanced diet, supplemental vitamins and low salt diet. The medical issues the patient is following up for inclu de All identified problems below, osteoporosis/osteopenia and other (MS). Note for Follow up for chronic medical issues: no routine labs done for todays visit and pt isnt fasting either.- she is feeli ng pretty well - bp is better and still exercising routinely - no gerd or daysphagia and taking calcium and vitamin d- provigil working well for her- and no breathing issues- last visit to [facility] was june- and that who gave prvoigil , [ADDITIONAL REASON] Skin Lesions - Symptoms include multiple skin lesions. Lesion(s) are located on the left hand and right hand. The patient describes the lesion(s) as painless, raised, flesh-colored, white and increasing in size. Onset was gradual year(s) ago. There is no known event that preceded symptom onset. The patient describes this as worsening. Associated symptoms do not include chills, fever, joint pain, nausea or vomiting. Encounter Diagnosis: screening , COPD (496.), MULTIPLE SCLEROSIS (340.), Elevated Blood Pressure without diagnosis of Hypertension (796.2), Osteopenia (733.90), Synovial cyst (727.40) [facility] Office Visit On: 20-Dec-2011 10:13 Encounter Reason: Follow up tests - Diagnostic tests include other (labs and bone dexa). Date: (11/29/11 and 12/05/11). Follow up visit with no current symptoms. Note for Follow up tests: she is doingwell on the actonel End: 21-Dec-2011 21:37 without gerd dysphagia- no achey - bp up but on recheck last time after sitting was better- she feels well and labs are good- taking her calcium and vit d Encounter Diagnosis: Need for prophylactic vaccination and inoculation against influenza (V04.81), Osteopenia (733.90) [facility] Office Visit On: 21-Nov-2011 10:49 Encounter Reason: Follow up for chronic medical issues - The patient feels well with no complaints, has good energy level and is sleeping well. Patient has been compliant with instructions. Current medication use: no phil End: 28-Nov-2011 23:03 e effects and compliant with dosing regimen. Patient sleeps 9 hours per night. Nutrition: balanced diet, supplemental vitamins and low salt diet. The medical issues the patient is following up for inclu de All identified problems below, osteoporosis/osteopenia and other (MS). Note for Follow up for chronic medical issues: No routine labs done for today.- her ms is quiet - she has had no choking or co ughing and never saw speech pathologist- no diarrhea and feels very good- got rid of virus- she has increqsed her exercise to 5 days a week from 2 days a week and so weight coming down Encounter Diagnosis: Osteopenia (733.90), PREVENTION OF TETANUS (V03.7), COPD (496.), Elevated Blood Pressure without diagnosis of Hypertension (796.2), scrdeening [facility] Office Visit On: 27-Sep-2011 10:23 Encounter Reason: Sinusitis/ - The duration of the symptoms are 5 days The course has been worsening. The sinusitis/ has no relieving factors. Associated features include The symptoms have been associated with cough, geno End: 27-Sep-2011 10:49 al discharge/stuffy nose and teeth pain, while the symptoms have not been associated with sinus pain or swollen lymph glands. No previous evaluations were reported.Encounter Diagnosis: Viral infection, unspecified (079.99) [facility] Office Visit On: 30-Jan-2011 14:00 Encounter Reason: Injections - The medication the patient is here to receive is other (flu shot).Encounter Diagnosis: Need for prophylactic vaccination and inoculation against influenza (V04.81) End: 30-Jan-2011 14:09 [facility] Phone Encounter On: 18-Oct-2010 13:47 Encounter Diagnosis: Unspecified Diagnosis End: 18-Oct-2010 13:49 [facility] Office Visit On: 10-Oct-2010 14:28 Encounter Reason: Urinary problems - Note for Urinary problems: is a followup - has hx of frequency-n other complaintsEncounter Diagnosis: Urine, Abnormal (791.9) End: 10-Oct-2010 14:53 [facility] Office Visit On: 04-Oct-2010 13:40 Encounter Reason: Follow up for chronic medical issues - The patient feels well with minor complaints (loose bowels from atb), has good energy level and is sleeping well. Patient has been compliant with instructions. Cur End: 05-Oct-2010 8:42 rent medication use: experiencing side effects (loose bowels from atb) and compliant with dosing regimen. Patient sleeps 9 hours per night. Nutrition: balanced diet, supplemental vitamins and low salt d iet. The medical issues the patient is following up for include All identified problems below, osteoporosis/osteopenia and other (MS). Note for Follow up for chronic medical issues: she will choke not routinely on foods and water- breathing is good with inhaler- she was sob and wheezing prior to using this- no fever- no productive cough- no uti sx, [ADDITIONAL REASON] Follow up, Laboratory Test Results - Date: (09/29/10). , [ADDITIONAL REASON] Diarrhea - The onset of the diarrhea has been sudden and has been occurring in a persistent pattern for 1 day. The course has been recurrent. The quality of stools is of normal cons istency. The volume of the stools is small. The symptoms have been associated with start of a new medication (atb), while the symptoms have not been associated with abdominal pain, fever, nausea or vomi ting. Note for Diarrhea: normal stool but leaking stool on underware- never did before- no abd pain Encounter Diagnosis: Diarrhea (787.91), REACTION DUE TO ASPIRATION, FLUID (E879.4), COPD (496.), Wheezing (786.07), PNEUMONIA, BACTERIAL NOS (482.9) , Elevated Blood Pressure without diagnosis of Hypertension (796.2), Osteopenia (733.90), Multiple Sclerosis, Urine, Abnormal (791.9) [facility] Office Visit On: 28-Sep-2010 13:25 Encounter Reason: Follow up tests - Diagnostic tests include chest X-ray. Date: (09/26/10). Current symptoms include wheezing. There is a family history of breast cancer (mother, M grandmother ) and cardiovascular disease End: 28-Sep-2010 14:04 (father ) , while there is no family history of cystic fibrosis, Down's syndrome, mental retardation or myocardial infarction before age 55. Past medical history includes neurologic disorder (MS).Encounter Diagnosis: PNEUMONIA, BACTERIAL NOS (482.9) , Wheezing (786.07), MULTIPLE SCLEROSIS (340.), COPD (496.) [facility] Office Visit On: 26-Sep-2010 13:39 Encounter Reason: Cough - The onset of the cough has been sudden and has been occurring in a persistent pattern for 7 days. The course has been constant. The cough is characterized as productive of mucoid sputum. The rekha End: 26-Sep-2010 14:22 unt of sputum produced is scanty. The cough occurs all the time. The symptoms are aggravated by supine posture (when first lying down then stops). The symptoms have been associated with foreign body asp iration and wheezing, while the symptoms have not been associated with chest pain, fever, headache, hoarseness or runny nose.Encounter Diagnosis: REACTION DUE TO ASPIRATION, FLUID (E879.4), PNEUMONIA, BACTERIAL NOS (482.9), Wheezing (786.07) [facility] Office Visit On: 20-Jun-2010 15:10 Encounter Reason: Rash - The onset of the rash has been sudden and has been occurring in a persistent pattern for months. The course has been increasing. The rash is characterized as red, raised above the skin, flat and End: 20-Jun-2010 15:41 grouped in crops. The rash was first seen on the lower extremity (L ). It spread to the trunk, the back and the upper extremity. There has been associated itching and pain.Encounter Diagnosis: Eczema herpeticum (054.0) [facility] Office Visit On: 14-Mar-2010 13:44 Encounter Reason: Follow up for chronic medical issues - The patient feels well with no complaints, has good energy level and is sleeping well. Patient has been compliant with instructions. Current medication use: no phil End: 14-Mar-2010 14:19 e effects and compliant with dosing regimen. Patient sleeps 9 hours per night. Nutrition: balanced diet, supplemental vitamins and low salt diet. The medical issues the patient is following up for inclu de All identified problems below, osteoporosis/osteopenia and other (MS). Note for Follow up for chronic medical issues: bp up little today- probably too much salt food s with thanksgiving this weeken d- she is tolerating actonel but concer no of cost-she saw ms hampton and he put her through t- she feels well doing this-- got her flu shotEncounter Diagnosis: Osteopenia (733.90), Atypical Nevus(238.2), Elevated Blood Pressure without diagnosis of Hypertension (796.2), MULTIPLE SCLEROSIS (340.) [facility] Office Visit On: 21-Sep-2009 14:15 Encounter Diagnosis: Atypical Nevus(238.2) End: 21-Sep-2009 14:27 [facility] Office Visit On: 07-Sep-2009 13:05 Encounter Reason: Follow up for chronic medical issues - The patient feels well with no complaints ,has good energy level and is sleeping well. Patient has been compliant with instructions. Current medication use: no phil End: 07-Sep-2009 13:41 e effects and compliant with dosing regimen. Patient sleeps 8 hours per night. Nutrition: balanced diet ,supplemental vitamins and low salt diet. The medical issues the patient is following up for inclu de All identified problems below ,osteoporosis/osteopenia and other (MS). Note for Follow up for chronic medical issues: she is ding better with actonel vs fosamax no stomach upset and no gerd or dysp hagia- is doing exercise 3 times a week and taking calcium and vit d- bp is better - - things stable with multiple sclerosis-Encounter Diagnosis: Osteopenia (733.90), MULTIPLE SCLEROSIS (340.), screening, Atypical Nevus(238.2) [facility] Office Visit On: 10-Mar-2009 10:36 Encounter Reason: Follow up, Diagnostic Procedure Results - Diagnostic tests include other (bone dexa). Date: (03/02/09). Note for Follow up, Diagnostic Procedure Results: saw Alexandre- and he is trying to get as we are End: 10-Mar-2009 11:23 a copy of her pfts from [facility]- she sees him again in mar- she hasnt had any more sx Encounter Diagnosis: Osteopenia (733.90), TUBERCULOSIS OF LUNG; INFILTRATIVE, BACTERIOLOGICAL OR HISTOLOGICAL EXAMINATION RESULTS UNKNOWN (AT PRESENT) (011.02), MULTIPLE SCLEROSIS (340.) [facility] Nurse Visit On: 21-Jan-2009 14:14 Encounter Reason: Injections - The medication the patient is here to receive is other (Influenza vaccine). Encounter Diagnosis: Need for prophylactic vaccination and inoculation against influenza (V04.81) End: 21-Jan-2009 14:15 [facility] Office Visit On: 24-Dec-2008 10:58 Encounter Reason: Follow up for chronic medical issues - The patient feels well with no complaints ,has good energy level and is sleeping well. Patient has been compliant with instructions. Current medication use: no phil End: 27-Dec-2008 20:43 e effects and compliant with dosing regimen. Patient sleeps 8 hours per night. Nutrition: balanced diet ,supplemental vitamins and low salt diet. The medical issues the patient is following up for inclu de All identified problems below ,osteoporosis/osteopenia and other (MS). Note for Follow up for chronic medical issues: she had complete hyster had low bp after so had issues there but otherwise ok- she doing well now- and no gerd or dysphagia- and feeling well- exercising twice a week- she saw all the tb people at [facility] in june- she has appt with Alexandre on sunday- a month ago - she had a sensation in lungs- she feels - no pain no hurt to breath in - maybe a tightness in her chest - no cough wheeze or fever- hasnt had for last month-- after laying on backEncounter Diagnosis: Osteopenia (733.90), Chest pain (786.59), MULTIPLE SCLEROSIS (340.), screen [facility] Historical Summary On: 12-Oct-2008 15:01 [facility] End: 12-Oct-2008 15:03 Office Visit On: 01-Apr-2008 14:39 Encounter Reason: Preoperative evaluation - The patient feels well with no complaints ,has good energy level and is sleeping well. Surgical procedures include: hysterectomy (total). Date of procedure: (04/20/07). Previous End: 28-Apr-2008 22:00 problems include a reaction to general anesthesia (MS tends to get worse for awhile). Prosthetics include: eye glasses. Note for Preoperative evaluation: was having vaginal bleeeding so saw dr Vazquez - and had us that showed thickend endometrium-- - they have decided to do hysterectomy on apr 20- no hx of anesthesia issues- except when she has dental work-- she gets a liyttle flare of ms- Dr Feldman er was going to write her ms doctor and talk to him about this-- - no chest pain or sob-- no dizzy and no hx of blood clots- occ wheeze with allergiesEncounter Diagnosis: Pre-operative examination, unspecified (V72.84), Osteopenia (733.90), Wheezing (786.07), Abnormal EKG(794.31), Prophylactic vaccination against Streptococcus pneumoniae (V03.82) [facility] Nurse Visit On: 18-Feb-2007 8:06 Encounter Diagnosis: Need for prophylactic vaccination and inoculation against influenza (V04.81) End: 18-Feb-2007 8:15 [facility] Office Visit On: 28-Dec-2006 13:42 Encounter Diagnosis: Dysuria (788.1) End: 30-Dec-2006 22:12 [facility] Payers Joleen GOLD/[employer]UCENA WOMACK; a guarantor
--- OUTSIDE RECORDS SUMMARY | 2018-05-09 15:54 | XMS RPT_ITS | Continuity of Care Document ---
:1950 Author Organization [facility] Address [address] [facility] [address] [place] [address] Phone Care Team Providers Name Role Phone [...] 30 days Quantity: 30 {Tablet} Refills: 5 Ordered:07-Sep-2017 Kelsey Colon Start : 07-Sep-2017 Active FOLIC ACID, 800MCG (Oral Tablet) 3 [...] 0 days Quantity: 30 {Capsule} Refills: 0 Ordered:05-Sep-2017 Fast DO, Allison AFast DO, Allison A [...] 30 {Tablet} Refills: 0 Ordered:18-Jan-2018 Allison Tovar DO, DO, Allison Zaldivar Start : 05-Sep-2017 End : 18-Jan-2018 Inactive [...] 0 Ordered:19-Oct-2015 Allison Tovar DO, DO, Allison Zaldivar Start : 19-Oct-2015 End : 29-Oct-2015 Inactive [...] days Quantity: 1 {Suspension} Refills: 0 Ordered:24-Nov-2013 Maryannbel Kelsey Start : 27-Sep-2011 End : 12-Jun-2016 Discontinued Comments:This order discontinued per [employer]. FOSAMAX, 70MG (Oral Tablet) 1 (one) Tablet q week for 0 days Quantity: 12 {Tablet} Refills: 3 Ordered:10-Mar-2009 Fast DO, Allison AFast DO, Allison A Start : 10-Mar-2009 End : 10-Mar-2009 Discontinued [facility] MOOD RELAXER, 300MG (Oral Capsule) 3 caps [...] Status: Inactive as of 01-Mar-2015 Vaccine for sbvwikwzdp-xaulgms-mqfvyumzs with poliomyelitis (Z23, V06.3) Status: Inactive as of 18-Nov-2012 Wheezing (R06.2, 786.07) Status: Inactive as of 23-May-2016 Procedures Procedure Dates Details Hysterectomy, Total Completed Comments: 2008- no cancer Tonsillectomy Completed Date Value Details 12-Mar-2017 SCREENING MAMM (CAD), BILAT Result: Comments: See Note; NOTES: [facility] Imaging Services [address] [place] [address] SCREENING MAMM (CAD), BILAT MR#: [id number] Acct: [id number] Name: GREY WOMACK Rep #: [id number] : 1950 F 66 From: Milton Grubbs MD PCP: Allison Tovar DO Status: REG CLI Study: SCREENING MAMM (CAD), BILAT Date of Exam: 03/12/17 Exam# [id number] Ordering Dr: Allison Tovar DO MAMMOGRAPHY - [...] delay biopsy of a clinically suspicious abnormality. [id number] Electronically Signed: Jacob barraza MD at 11:13 EST , Service support , CC: Allison Tovar DO Locator Specialist: Signed 16-Jan-2017 Chest PA and Lateral Result: Comments: See Note; NOTES: [facility] Imaging Services [address] [place] [address] Chest PA and Lateral MR#: [id number] Acct: [id number] Name: ANGELITORADHAGREY Gallegos Rep #: [id number] : 1950 F 66 From: Layo Wiley DO PCP: Allison Tovar DO Status: REG CLI Study: Chest PA and Lateral Date of Exam: 01/16/17 Exam# [id number] Ordering Dr: Allison Tovar DO STUDY: X-RAY [...] Service support , CC: Allison Tovar DO Locator Specialist: Signed 21-Nov-2016 Brain W/WO Contrast Result: Comments: See Note; NOTES: [facility] Imaging Services [address] [place] [address] Brain W/WO Contrast MR#: [id number] Acct: [id number] Name: GREY WOMACK Rep #: [id number] : 1950 F 66 From: Ang Ledezma DO PCP: Allison Tovar DO Status: REG CLI Study: Brain W/WO Contrast Date of Exam: 11/21/16 Exam# [id number] Ordering Dr: Bakari Ramos MD STUDY: MRI [...] , CC: Allison Tovar DO; Bakari Ramos Locator Specialist: Signed 08-Mar-2016 Bilat Scrn Digital AND CAD Result: Comments: See Note; NOTES: [facility] Imaging Services [address] [place] [address] Verdana 4d Bilat Scrn Digital AND CAD MR#: [id number] Acct: [id number] Name: GREY WOMACK Rep #: [id number] : 1950 F 65 From: Adrián Geiger MD PCP: Allison Tovar DO Status: REG CLI Study: Bilat Scrn Digital AND CAD Date of Exam: 03/08/16 Exam# [id number] Ordering Dr: Allison Tovar DO MAMMOGRAPHY - [...] be sent to the patient by the [facility] within 30 days. Approximately 10% of breast cancers are not detected by mammography. A normal mammogram should not delay biopsy of a clinically suspicious abnormality. [id number] Electronically S igned: Adrián Geiger MD at 12:48 EST Tel [phone], Service support [phone], CC: Allison Tovar DO Locator Specialist: Signed 08-Mar-2016 Dexa Bone Density Study (HP) Result: Comments: See Note; NOTES: [facility] Imaging Services [address] [place] [address] Verdana 4d Dexa Bone Density Study (HP) MR#: [id number] Acct: [id number] Name: VUHIMA Gallegos Rep #: [id number] : 1950 F 65 From: Adrián Geiger MD PCP: Allison Tovar DO Status: REG CLI Study: Dexa Bone Density Study (HP) Date of Exam: 03/08/16 Exam# [id number] Ordering Dr: Terry DO STUDY: DUAL ENERGY X-RAY ABSORPTIOMETRY / DXA REASON FOR EXAM: Female, 65 years old. Early menopause. Loss of height. The patient is in a wheelchair. Decreased mobility. TECHNIQUE: Bone Chicken Dresser al Density (BMD) measurements of both forearms [...] Adrián Geiger MD at 10:43 EST Tel [phone], Service support [phone], CC: Allison Tovar DO Locator Specialist: Signed 07-Feb-2016 L/S Spine Min 4 Views Result: Comments: See Note; NOTES: [facility] Imaging Services [address] [place] [address] Verdana 4d L/S Spine Min 4 Views MR#: [id number] Acct: [id number] Name: GREY WOMACK Re p #: [id number] : 1950 F 65 From: Lucio Walton MD PCP: Allison Tovar DO Status: REG CLI Study: L/S Spine Min 4 Views Date of Exam: 02/07/16 Exam# [id number] Ordering Dr: Allison Tovar DO STUDY : [...] MD at 21:06 EDT , Service support [phone], RAD/L/S Spine Min 4 Views CC: Allison Tovar DO Locator Specialist: Signed 14-Oct-2015 Brain W/WO Contrast Result: Comments: See Note; NOTES: [facility] Imaging Services [address] [place] [address] Verdana 4d Brain W/WO Contrast MR#: [id number] Acct: [id number] Name: GREY WOMACK Rep #: [id number] : 1950 F 65 From: Moriah Juarez MD PCP: Allison Tovar DO Status: REG CLI Study: Brain W/WO Contrast Date of Exam: 10/14/15 Exam# [id number] Ordering Dr: Allison Tovar DO STUDY: MRI [...] at 11:10 EDT Tel , Service support [phone], Fax CC: Allison Tovar DO Locator Specialist: Signed 14-Oct-2015 Brain W/WO Contrast Result: Comments: See Note; NOTES: [facility] Imaging Services [address] [place] [address] Youdana 4d Brain W/WO Contrast MR#: [id number] Acct: [id number] Name: GREY WOMACK Rep #: [id number] : 1950 F 65 From: Moriah Juarez MD PCP: Allison Tovar DO Status: REG CLI Study: Brain W/WO Contrast Date of Exam: 10/14/15 Exam# [id number] Ordering Dr: Allison Tovar DO ADDENDUM by Moriah Juarez MD on 10/15/15 at 1238 ADDENDUM There has been no significant c hange in the number and size of the lesions of the supratentorial brain and the left middle cerebellar peduncle, since the study from July 03, 2012. Electronically Signed: Moriah Juarez MD 10/14 at 12:38 EDT Tel , Service support [phone], 10/15/15 1238 Date cc: Allison Tovar DO [...] at 11:10 EDT Tel , Service support [phone], CC: Allison Tovar DO Locator Specialist: Signed 11-Dec-2014 Bilat Scrn Digital AND CAD Result: Comments: See Note; NOTES: [facility] Imaging Services [address] [place] [address] Breast Imaging Report MR#: [id number] Acct: [id number] Name: ANGELITORADHAGREY Rep #: [id number] : 1950 F 64 From: Adrián Geiger MD PCP: Allison Tovar DO Status: REG CLI Study: Bilat Scrn Digital AND CAD Date of Exam: 12/11/14 Exam# [id number] Ordering Dr: Allison Tovar DO MAMMOGRAPHY - [...] Adrián Geiger MD at 10:36 EDT Tel [phone], Service support [phone], CC: Allison Tovar DO Locator Specialist: Signed 12-Oct-2014 Hip min 2 Views Result: Comments: See Note; NOTES: [facility] Imaging Services [address] [place] [address] Radiology Report MR#: [id number] Acct: [id number] Name: GREY WOMACK El Rep #: [id number] : 1950 F 64 From: Adrián Geiger MD PCP: Allison Tovar DO Status: REG CLI Study: Hip min 2 Views Date of Exam: 10/12/14 Exam# [id number] Ordering Dr: Allison Tovar DO STUDY: X-RAY [...] Adrián Geiger MD at 15:50 EDT Tel [phone], Service support [phone], RAD/Hip min 2 Views IMPRESSION: Normal x-ray examination of the hip. Electronically Signed: Adrián Geiger MD at 15:50 EDT Tel [phone], Service support [phone], CC: Allison Tovar DO Locator Specialist: Signed 10-Dec-2013 Bilat Scrn Digital & CAD Result: Comments: See Note; NOTES: [facility] Imaging Services [address] [place] [address] Breast Imaging Report MR#: [id number] Acct: [id number] Name: GREY WOMACK Rep #: [id number] : 1950 F 63 From: Adrián Geiger MD PCP: Allison Tovar DO Status: REG CLI Exam# [id number] Ordering Dr: Allison Tovar DO MAMMOGRAPHY - [...] Adrián Geiger MD at 10:53 EDT Tel [phone], Service support [phone], CC: Allison Tovar DO Locator Specialist: Signed 10-Dec-2013 Dexa Bone Density Study (HP) Result: Comments: See Note; NOTES: [facility] Imaging Services [address] [place] [address] Bone Density Report MR#: [id number] Acct: [id number] Name: ANGELITORADHAGREY Rep #: [id number] : 1950 F 63 From: Adrián Geiger MD PCP: Allison Tovar DO Status: [facility] CLI Study: Dexa Bone Density Study (HP) Date of Exam: 12/10/13 Exam# [id number] Ordering Dr: Allison Tovar DO STUDY: DUAL [...] Signed: Taylor Castellanos at 15:16 EDT Tel [phone], Service support [phone], CC: Allison Tovar DO Locator Specialist: Signed 02-Sep-2013 PT Discharge Summary Result: Comments: See Note; NOTES: [facility] Physical Therapy [facility] [facility] [place] [address] Fax REHABILITATION SERVICES DISCHARGE SUMMARY MR#: [id number] Acct: [id number] Name: GREY WOMACK Rep #: [id number] : 1950 63 From: Susie Angel Referring Dr.: OUT OF TOWN DOCTOR Status: REG RCR Eval Date: Disc Date: DATE OF SERVICE: REFERRING PHYSICIAN: ____. [...] her. Susie Angel, PT T: NTS JOB: [id number] <Electronically signed by Susie Angel > 09/02/13 1138 CC: Signed Immunization Name Dates Details Influenza (3 years and up) on: 18-Feb-2007 Comments: Lot #: [id number] date: 09/21Amount given: 0.5 mlRoute: IMSite given: [...] smoker Vital Signs Date Test Result Details 2-Aea-546433:54 Temperature 96.7 f Comments: Method: Temporal Pulse [...] kg/m2 Body Surface Area Calculated 1.61 m2 :01 Temperature 97.6 f Comments: Method: Temporal Pulse [...] Date Description Value Details :53 LIPID PANEL (18120) Comments: PATIENT WAS FASTINGPERFORMED BY: ARMIN Mungo Ojwejj5870 [facility] [id number]; fu 10-5 DF LDL/HDL Ratio 1.8 {ratio} [...] Cholesterol, Total 220 mg/dL (Abnormal) Range: 100-199 :53 CBC (AUTO) (83556) Comments: PATIENT WAS FASTINGPERFORMED BY: [facility] [id number] Platelets 300 {x10E3/uL} (Normal) Range: 150-379 RDW 13.9 % (Normal) Range: 12.3-15.4 MCHC 33.2 g/dL (Normal) Range: 31.5-35.7 MCH 29.9 pg (Normal) Range: 26.6-33.0 MCV 90 fL (Normal) Range: 79-97 Hematocrit 38.9 % (Normal) Range: 34.0-46.6 Hemoglobin 12.9 g/dL (Normal) Range: 11.1-15.9 RBC 4.32 {x10E6/uL} (Normal) Range: 3.77-5.28 WBC 7.3 {x10E3/uL} (Normal) Range: 3.4-10.8 :53 Vitamin D Hydroxy (12484) Comments: PATIENT WAS FASTINGPERFORMED BY: [facility] [id number] Vitamin D, 25-Hydroxy 66.8 ng/mL (Normal) Range: 30.0-100.0 Comments: Vitamin D deficiency has been defined by the [place] [facility] and an Endocrine Society practice guideline as alevel of serum 25-OH vitamin D less than 20 ng/mL (1,2).The Endocrine Society went on to further define vitamin Dinsufficiency as a level between 21 and 29 ng/mL (2).1. IOM ([place] of Medicine). 2010. Dietary reference intakes for calcium and D. [place]: The National Academies Press.2. Tylor MF, [place], Magan MARIE, et al. Evaluation, treatment, and prevention of vitamin D deficiency: an Endocrine Society clinical practice guideline. JCEM. 2010; 96(7):1911-30. :53 METABOLIC PANEL, COMPREHENSIVE Comments: PATIENT WAS FASTINGPERFORMED BY: [facility] [facility] [id number] (67693) ALT (SGPT) 14 [iU]/L (Normal) Range: 0-32 [...] 8-27 Glucose 89 mg/dL (Normal) Range: 65-99 0-Aat-972440:22 CBC W/AUTO DIFF WBC (24611) Comments: PATIENT NOT FASTINGPERFORMED BY: [facility] Vljqec5267 [facility] [id number] Immature Grans (Abs) 0.0 {x10E3/uL} (Normal) Range: [...] 3.77-5.28 WBC 8.5 {x10E3/uL} (Normal) Range: 3.4-10.8 4-Yfc-296761:22 METABOLIC PANEL, COMPREHENSIVE Comments: PATIENT NOT FASTINGPERFORMED BY: [facility]Co[facility] CenterOwuike1502 [facility] [id number]; review at 09/05 appt (15246) ALT (SGPT) 15 [iU]/L (Normal) Range: 0-32 [...] 8-27 Glucose 101 mg/dL (Abnormal) Range: 65-99 :54 Vitamin D Hydroxy (12930) Comments: PATIENT WAS FASTINGPERFORMED BY: [facility] ResearchMescalero Service UnitXhtwro6432 [facility] [id number] Vitamin D, 25-Hydroxy 70.6 ng/mL (Normal) Range: 30.0-100.0 Comments: Vitamin D deficiency has been defined by the [place] [facility] and an Endocrine Society practice guideline as alevel of serum 25-OH vitamin D less than 20 ng/mL (1,2).The Endocrine Society went on to further define vitamin Dinsufficiency as a level between 21 and 29 ng/mL (2).1. IOM ([place] of Medicine). 2010. Dietary reference intakes for calcium and D. [place]: The National Academies Press.2. Tylor MF, [place], Magan MARIE, et al. Evaluation, treatment, and prevention of vitamin D deficiency: an Endocrine Society clinical practice guideline. JCEM. 2010; 96(7):1911-30. :54 LIPID PANEL (05807) Comments: PATIENT WAS FASTINGPERFORMED BY: [facility] ResearchRiverview Medical CenterOclsbr7441 [facility] [id number]; can review on 1/2 LDL/HDL Ratio 1.7 [...] Cholesterol, Total 224 mg/dL (Abnormal) Range: 100-199 06-Hha-410283:54 CBC W/AUTO DIFF WBC (45581) Comments: PATIENT WAS FASTINGPERFORMED BY: [employer] [facility] [id number] Immature Grans (Abs) 0.0 {x10E3/uL} (Normal) Range: [...] 3.77-5.28 WBC 9.5 {x10E3/uL} (Normal) Range: 3.4-10.8 54-Vle-820081:54 METABOLIC PANEL, COMPREHENSIVE Comments: PATIENT WAS FASTINGPERFORMED BY: [facility] ResearchRiverview Medical CenterNhkzon2196 [facility] [id number] (90016) ALT (SGPT) 23 [iU]/L (Normal) Range: 0-32 [...] Glucose, Serum 80 mg/dL (Normal) Range: 65-99 06-Ahb-359078:5 BUN 22 mg/dL (Abnormal) Comments: [facility] [address] [place], [place], [address] 9 Range: 7-18 57-Iza-367967:59 Serum Creatinine AND GFR Comments: [facility] [address] [place], [address] EST GFR - AA 85 mL/min (Normal) Comments: GFR Calc EST GFR 70 mL/min (Normal) Comments: Non- GFR Calc CREAT,SERUM 0.86 mg/dL (Normal) Range: 0.55-1.02 Comments: The validity of the calculated GFR AND GFRAA in patients over70 years has not been determined. Clinical correlation isessential. 49-Ycy-074564:16 COLON BIOPSY (CHOOSE See Note (Normal) Comments: [facility] [address] [place], [place], [address] SITE) Comments: Patient: GREY WOMACK : 1950 (66/F) Acct Num: [id number] Phys: Mookie Campoverde Unit Num: [id number] Loc: [facility] Specimen: Received: 09/12/16 - 1616 Spec Type: C OLON BX TISSUES TISSUES: GROSS DESCRIPTION Received is one container labeled with the patient's name and designated splenic flexure polyp. The specimen consists of two irregular fr agments of light bell soft tissue that in aggregate measure 0.5 x 0.4 x 0.2 cm. The specimen is totally submitted in one cassette. / RY:cy 09/13/16 TC:1 CPT: 08361 HEADER OPERATION: Colonoscopy with polypectomy PRE-OP DIAGNOSIS: Positive Cologuard TISSUE SUBMITTED: Splenic flexure polyp, rule out adenoma MICROSCOPIC DESCRIPTION Slides are reviewed. MICROSCOPIC DIAGNOSIS Splen ic flexure polyp, polypectomy: Tubular adenoma. Fragment of fecal material. SJ:cy 09/14/16 Signed Lenny Jackson 09/14/16 <signature on file> 55-Vwt-088903:15 CBC W/AUTO DIFF WBC (00069) Comments: PATIENT WAS FASTINGPERFORMED BY: [facility] Zmigmp8425 [facility] [id number] Immature Grans (Abs) 0.0 {x10E3/uL} (Normal) Range: [...] 3.77-5.28 WBC 8.9 {x10E3/uL} (Normal) Range: 3.4-10.8 79-Tnh-273780:15 LIPID PANEL (76871) Comments: PATIENT WAS FASTINGPERFORMED BY: [employer]70 [facility] [id number] LDL/HDL Ratio 1.6 {ratio_units} (Normal) Range: 0.0-3.2 Comments: LDL/HDL Ratio Men Women 1/2 Avg.Risk 1.0 1.5 Av g.Risk 3.6 3.2 2X Avg.Risk 6.2 5.0 3X Avg.Risk 8.0 6.1 LDL Cholesterol Calc 107 mg/dL (Abnormal) Range: 0-99 VLDL Cholesterol Ben 19 mg/dL (Normal) Range: 5-40 HDL Cholesterol 69 mg/dL (Normal) Triglycerides 93 mg/dL (Normal) Range: 0-149 Cholesterol, Total 195 mg/dL (Normal) Range: 100-199 41-Tvx-897971:15 Vitamin D Hydroxy (15261) Comments: PATIENT WAS FASTINGPERFORMED BY: [facility]um6370 [facility] [id number] Vitamin D, 25-Hydroxy 59.3 ng/mL (Normal) Range: 30.0-100.0 Comments: Vitamin D deficiency has been defined by the [place] ofMedicine and an Endocrine Society practice guideline as alevel of serum 25-OH vitamin D less than 20 ng/mL (1,2).The Endocrine Society went on to further define vitamin Dinsufficiency as a level between 21 and 29 ng/mL (2).1. IOM ([place] of Medicine). 2010. Dietary reference intakes for calcium and D. [place]: The National Academies Press.2. Tlyor MF, [place] MAYNARD, Magan MARIE, et al. Evaluation, treatment, and prevention of vitamin D deficiency: an Endocrine Society clinical practice guideline. JCEM. 2010; 96(7):1911-30. 64-Dpa-121714:15 METABOLIC PANEL, COMPREHENSIVE Comments: PATIENT WAS FASTINGPERFORMED BY: [facility]CoR[facility] Medical CenterRxbwfd2539 [facility] [id number]; can review on 12/12 (02945) ALT (SGPT) 14 [iU]/L (Normal) Range: 0-32 [...] Glucose, Serum 86 mg/dL (Normal) Range: 65-99 29-Nug-299432:15 HEPATITIS C ANTIBODY (57079) Comments: PATIENT WAS FASTINGPERFORMED BY: [facility]6370 [facility] [id number] Hep C Virus Ab <0.1 {s/co_ratio} (Normal) Range: 0.0-0.9 Comments: Negative: < 0.8 Indeterminate: 0.8 - 0.9 Positive: > 0.9 . The CDC recommends that a positive HCV antibody result be followed up with a HCV Nucleic Acid Amplification test (586450). 11-Bna-767005:09 URINE SULAIMAN CULTURE (LEWIS Comments: PATIENT NOT FASTINGPERFORMED BY: [facility] [id number] Information: SRC:UC COL COUNT) (39241) Result 1 MUG (Normal) Comments: Mixed urogenital flora2,000 Colonies/mL Urine Culture,Comprehensive Final report (Normal) 53-Uce-938315:08 Creatine Kinase Total (33109) Comments: PATIENT NOT FASTINGPERFORMED BY: [facility]6370 [facility] [id number] Creatine Kinase,Total,Serum 121 U/L (Normal) Range: 24-173 71-Iyj-626487:08 RHEUMATOID FACTOR-QUANT (73673) Comments: PATIENT NOT FASTINGPERFORMED BY: [facility]6370 [facility] [id number] RA Latex Turbid. <10.0 {IU/mL} (Normal) Range: 0.0-13.9 62-Pqj-341971:08 KELIN (ANTINUCLEAR ANTIBODY) Comments: PATIENT NOT FASTINGPERFORMED BY: [place] 2806670 [facility] [id number] (35256) KELIN Direct Negative (Normal) 00-Tvy-938544:08 C-REACTIVE PROTEIN (16361) Comments: PATIENT NOT FASTINGPERFORMED BY: [facility]6370 [facility] [id number] C-Reactive Protein, Quant 1.2 mg/L (Normal) Range: 0.0-4.9 :08 SED RATE ERYTHROCYTE (98329) Comments: PATIENT NOT FASTINGPERFORMED BY: [facility] Gouifs3376 [facility] [id number] Sedimentation Rate-Westergren 5 mm/h (Normal) Range: 0-40 :08 CALCIUM SERUM (62782) Comments: PATIENT NOT FASTINGPERFORMED BY: [facility] Vfelus7997 [facility] [id number] Calcium, Serum 9.5 mg/dL (Normal) Range: 8.7-10.3 :13 Urine Culture,Comprehensive Comments: PATIENT NOT FASTINGPERFORMED BY: [facility] Doiwzo0255 [facility] [id number] Information: SRC:UR Result 1 ECV (Abnormal) Comments: [...] S Urine Final report Culture,Comprehensi (Abnormal) ve 80-Fxx-000585:49 Calcium Serum (17071) Comments: 10 days; PATIENT NOT FASTINGPERFORMED BY: [facility] Xwvegi5042 [facility] [id number] Calcium, Serum 9.5 mg/dL (Normal) Range: 8.7-10.3 :55 VITAMIN B-12 (CYANOCOBALAMIN) Comments: PATIENT NOT FASTINGPERFORMED BY: [facility] Gsrviq3704 [facility] [id number] (69985) Vitamin B12 856 pg/mL (Normal) Range: 211-946 :55 TSH (90576) Comments: PATIENT NOT FASTINGPERFORMED BY: [facility]CoRiverview Medical CenterZqloaz2337 [facility] [id number] TSH 1.770 {uIU/mL} (Normal) Range: 0.450-4.500 :55 CBC with auto diff (05439) Comments: PATIENT NOT FASTINGPERFORMED BY: [facility]CoR[facility] CenterIkxiym4621 [facility] [id number] Immature Grans (Abs) 0.0 {x10E3/uL} (Normal) Range: [...] COMPREHENSIVE Comments: PATIENT NOT FASTINGPERFORMED BY: ARMIN LabCoRiverview Medical CenterRfemvy3552 [facility] [id number] (12500) ALT (SGPT) 20 [iU]/L (Normal) Range: 0-32 [...] Glucose, Serum 90 mg/dL (Normal) Range: 65-99 88-Euf-301522:52 Urinalysis, Office (34816) UA - LEUKOCYTE ESTERASE Negative (Normal) UA - NITRITE Negative (Normal) URINE UROBILINGN LEWIS TIMED Normal mg/dL (Normal) UA - PROTEIN Trace mg/dL (Normal) UA - PH 6.5 (Normal) UA - BLOOD Negative (Normal) UA - SPECIFIC GRAVITY 1.030 (Abnormal) UA - KETONES Negative mg/dL (Normal) UA - BILIRUBIN Negative (Normal) UA - GLUCOSE Negative (Normal) 99-Zot-567098:17 URINE SULAIMAN CULTURE-LEWIS COL Comments: post-atb; PATIENT NOT FASTINGPERFORMED BY: [employer] [facility] [id number] Information: SRC:URC [id number] COUNT (45217) Result 1 MUG (Normal) Comments: Mixed urogenital flora10,000-25,000 colony forming units per mL Urine Final report (Normal) Culture,Comprehensive 41-Bys-735458:04 Serum Creatinine AND GFR Comments: [facility] [address] [place], [place], [address] EST GFR - AA 81 mL/min (Normal) Comments: GFR Calc EST GFR 67 mL/min (Normal) Comments: Non- GFR Calc CREAT,SERUM 0.90 mg/dL (Normal) Range: 0.55-1.20 Comments: The validity of the calculated GFR AND GFRAA in patients over70 years has not been determined. Clinical correlation isessential. 97-Faf-809144:25 Microscopic Examination Comments: PATIENT NOT FASTINGPERFORMED BY: [employer] [facility] [id number] Bacteria Few (Normal) Mucus Threads Present (Normal) Epithelial Cells (non renal) 0-10 {/hpf} (Normal) Range: 0 - 10 RBC 0-2 {/hpf} (Normal) Range: 0 - 2 WBC >30 {/hpf} (Abnormal) Range: 0 - 5 02-Mur-061918:25 URINALYSIS, W/ MICRO Comments: PATIENT NOT FASTINGPERFORMED BY: [employer] [facility] [id number] Information: [id number] (23632) Microscopic Examination See below: (Normal) Comments: Microscopic was indicated and was performed. Nitrite, Urine Positive (Abnormal) Urobilinogen,Semi-Qn 0.2 mg/dL (Normal) Range: 0.2-1.0 Bilirubin Negative (Normal) Occult Blood Negative (Normal) Ketones Negative (Normal) Glucose Negative (Normal) Protein Negative (Normal) WBC Esterase 3+ (Abnormal) Appearance Cloudy (Abnormal) Urine-Color Yellow (Normal) pH 6.0 (Normal) Range: 5.0-7.5 Specific Loraine 1.017 (Normal) Range: 1.005-1.030 04-Qnx-217115:25 URINE SULAIMAN CULTURE (LEWIS COL Comments: PATIENT NOT FASTINGPERFORMED BY: [facility] [id number] COUNT) (19949) Antimicrobial MIHEAD (Normal) Comments: S = Susceptible; [...] mL (Abnormal) Urine Final report Culture,Comprehensive (Abnormal) 41-Edk-196349:10 Vitamin D Hydroxy (55265) Comments: PATIENT WAS FASTINGPERFORMED BY: [employer] Wadbat5750 [facility] [id number] Vitamin D, 25-Hydroxy 43.9 ng/mL (Normal) Range: 30.0-100.0 Comments: Vitamin D deficiency has been defined by the [place] ofMedicine and an Endocrine Society practice guideline as alevel of serum 25-OH vitamin D less than 20 ng/mL (1,2).The Endocrine Society went on to further define vitamin Dinsufficiency as a level between 21 and 29 ng/mL (2).1. IOM ([place] of Medicine). 2010. Dietary reference intakes for calcium and D. [place]: The National Academies Press.2. Tylor MF, [place], Magan MARIE, et al. Evaluation, treatment, and prevention of vitamin D deficiency: an Endocrine Society clinical practice guideline. JCEM. 2010; 96(7):1911-30. 21-Per-474388:10 VITAMIN B-12 (CYANOCOBALAMIN) Comments: PATIENT WAS FASTINGPERFORMED BY: [employer] Igajlw2895 [address] [facility] [id number] (20213) Vitamin B12 978 pg/mL (Abnormal) Range: 211-946 78-Bqq-578686:10 CBC W/AUTO DIFF WBC Comments: PATIENT WAS FASTINGPERFORMED BY: [employer] Wxnhbq1972 [facility] [id number] Information: [id number] (68958) Immature Grans (Abs) 0.0 {x10E3/uL} (Normal) Range: [...] 3.77-5.28 WBC 6.3 {x10E3/uL} (Normal) Range: 3.4-10.8 00-Sdy-061122:10 METABOLIC PANEL, COMPREHENSIVE Comments: PATIENT WAS FASTINGPERFORMED BY: [employer] [place] [id number] ([id number]) ALT (SGPT) 17 [iU]/L (Normal) Range: 0-32 [...] Glucose, Serum 89 mg/dL (Normal) Range: 65-99 81-Cxw-321086:10 TSH (27940) Comments: PATIENT WAS FASTINGPERFORMED BY: Nymirum6370 [facility] [id number] TSH 2.460 {uIU/mL} (Normal) Range: 0.450-4.500 :22 Vitamin D Hydroxy (82328) Comments: PATIENT NOT FASTINGPERFORMED BY: [facility] Shifmt6342 [facility] [id number] Vitamin D, 25-Hydroxy 46.0 ng/mL (Normal) Range: 30.0-100.0 Comments: Vitamin D deficiency has been defined by the [place] of[place]icine and an Endocrine Society practice guideline as alevel of serum 25-OH vitamin D less than 20 ng/mL (1,2).The Endocrine Society went on to further define vitamin Dinsufficiency as a level between 21 and 29 ng/mL (2).1. IOM ([place] of Medicine). 2010. Dietary reference intakes for calcium and D. [place]: The National Academies Press.2. Tylor MF, [place], Magan MARIE, et al. Evaluation, treatment, and prevention of vitamin D deficiency: an Endocrine Society clinical practice guideline. JCEM. 2010; 96(7):1911-30. 55-Snv-138096:22 METABOLIC PANEL, Comments: PATIENT NOT FASTINGPERFORMED BY: [facility] Pfmlcx5889 [facility] [id number] Information: [id number]; will review on 04/07 COMPREHENSIVE (49227) ALT (SGPT) 15 [iU]/L (Normal) Range: 0-32 [...] Glucose, Serum 83 mg/dL (Normal) Range: 65-99 59-Gty-37893:42 CBC With Differential/Platelet Comments: PATIENT WAS FASTINGPERFORMED BY: [facility] Icqecw6005 [facility] [id number] Information: [id number] Immature Grans (Abs) 0.0 {x10E3/uL} (Normal) Range: [...] Panel (14) Comments: PATIENT WAS FASTINGPERFORMED BY: [facility] Iqezky6560 [facility] [id number] ALT (SGPT) 19 [iU]/L (Normal) Range: 0-32 [...] With LDL/HDL Comments: PATIENT WAS FASTINGPERFORMED BY: [facility]6370 [facility] [id number]; patient has fu 7-20 will review then [...] 2.130 {uIU/mL} Comments: PATIENT WAS FASTINGPERFORMED BY: [facility]6370 [facility] [id number] 9:42 (Normal) Range: 0.450-4.500 26-Oct-2014 Vitamin B12 1046 pg/mL (Abnormal) Comments: PATIENT WAS FASTINGPERFORMED BY: [facility]6370 [facility] [id number] 9:42 Range: 211-946 26-Oct-2014 Vitamin D, 25-Hydroxy 48.4 ng/mL (Normal) Comments: PATIENT WAS FASTINGPERFORMED BY: [facility]6370 [facility] [id number] 9:42 Range: 30.0-100.0 Comments: Vitamin D deficiency has been defined by the [place] of[place]icine and an Endocrine Society practice guideline as alevel of serum 25-OH vitamin D less than 20 ng/mL (1,2).The Endocrine Society went on to further define vitamin Dinsufficiency as a level between 21 and 29 ng/mL (2).1. IOM ([place] of Medicine). 2010. Dietary reference intakes for calcium and D. [place]: The National Academies Press.2. Tylor MF, [place] MAYNARD, Magan MAREI, et al. Evaluation, treatment, and prevention of vitamin D deficiency: an Endocrine Society clinical practice guideline. JCEM. 2010; 96(7):7831-30. :47 Protein Electro, Random Urine Comments: PERFORMED BY: [facility] [id number] Please note: SPRCS (Normal) Comments: Protein electrophoresis scan will follow via computer, mail, orcourier delivery. Gamma Globulin, U 19.7 % (Normal) M-Benjamin, % Not Observed % (Normal) Beta Globulin, U 28.3 % (Normal) Xyprc-6-Xqjnnhfs, U 22.0 % (Normal) Yodzm-5-Ppkvqfty, U 4.3 % (Normal) Albumin, U 25.6 % (Normal) Protein,Total,Urine 19.5 mg/dL (Abnormal) Range: 0.0-15.0 :47 Protein Electro.,S Comments: PERFORMED BY: [facility] [id number] Please note: SPRCS (Normal) Comments: Protein electrophoresis scan will follow via computer, mail, orcourier delivery. A/G Ratio 2.0 (Normal) Range: 0.7-2.0 Gamma Globulin 0.6 g/dL (Normal) Range: 0.5-1.6 Globulin, Total 2.2 g/dL (Normal) Range: 2.0-4.5 M-Benjamin Not Observed g/dL (Normal) Rrggq-9-Jyswtxct 0.6 g/dL (Normal) Range: 0.4-1.2 Beta Globulin 0.8 g/dL (Normal) Range: 0.6-1.3 Albumin 4.3 g/dL (Normal) Range: 3.2-5.6 Rclaz-3-Owiswqqw 0.2 g/dL (Normal) Range: 0.1-0.4 Protein, Total, Serum 6.5 g/dL (Normal) Range: 6.0-8.5 :41 URINE CALCIUM LEWIS TIMED Comments: PATIENT NOT FASTINGPERFORMED BY: [facility] [id number] Information: [id number] START 12/24/13@730AM END 12/25/13@73 0AM 24 Hour (65716) Calcium, Urine 24hr 182.9 {mg/24_hr} (Normal) Range: 100.0-300.0 Calcium, Urine 11.8 mg/dL (Normal) :47 PARATHORMONE (97693) Comments: PERFORMED BY: [facility]bio70 [facility] [id number] PTH, Intact 29 pg/mL (Normal) Range: 15-65 :20 CBC WITH MANUAL DIFF Comments: PATIENT WAS FASTINGPERFORMED BY: [employer]70 [facility] [id number] Information: [id number] (01814) Immature Grans (Abs) 0.0 {x10E3/uL} (Normal) Range: [...] PANEL, COMPREHENSIVE Comments: PATIENT WAS FASTINGPERFORMED BY: CadenceMD LabCoRiverview Medical CenterNgxefl0348 [facility] [id number] (32189) ALT (SGPT) 14 [iU]/L (Normal) Range: 0-32 [...] 87 mg/dL (Normal) Range: 65-99 :20 TSH (78865) Comments: PATIENT WAS FASTINGPERFORMED BY: [facility] Skwppq7960 [address] [facility]Christoferblin [place] [id number] TSH 2.540 {uIU/mL} (Normal) Range: 0.450-4.500 :20 Vitamin D Hydroxy (68153) Comments: PATIENT WAS FASTINGPERFORMED BY: [facility] Xolxzo1061 [address] RoadChristoferblin [place] [id number] Vitamin D, 25-Hydroxy 58.3 ng/mL (Normal) Range: 30.0-100.0 Comments: Vitamin D deficiency has been defined by the [place] of[place]icine and an Endocrine Society practice guideline as alevel of serum 25-OH vitamin D less than 20 ng/mL (1,2).The Endocrine Society went on to further define vitamin Dinsufficiency as a level between 21 and 29 ng/mL (2).1. IOM ([place] of [place]). 2010. Dietary reference intakes for calcium and D. [place]: The National Academies Press.2. Tylor MF, [place] MAYNARD, Magan MARIE, et al. Evaluation, treatment, and prevention of vitamin D deficiency: an Endocrine Society clinical practice guideline. JCEM. 2010; 96(7):1911-30. 79-Enj-337466:37 BILAT SCRN DIGITAL & CAD Radiology See [...] Hartman M.D.December 10, 2012 at 12:25:05 PM [id number] Signed RU/RU If you are the referring physician and would like to consult with theradiologist who provided this interpretation, please contact Neris Gambino at [phone]. If this radiologist is unavailable, youwillbe dir ected to another radiologist to assist. If you are a patient with a question regarding this report, pleasecontactyour referring physician directly. Professional Interpretation Provided By: [employer], Phone , These documents contain legally protected [...] on 12/10 1242 Sign by: Carlos Hartman 39-Soo-935686:33 TSH (50593) Comments: PATIENT WAS FASTINGPERFORMED BY: LabCoRiverview Medical CenterQuqfwa2650 [facility] [id number] TSH 2.590 {uIU/mL} (Normal) Range: 0.450-4.500 25-Ngj-469126:33 Vitamin D Hydroxy (97837) Comments: PATIENT WAS FASTINGPERFORMED BY: [employer] Fmvqjj0142 [facility] [id number] Vitamin D, 25-Hydroxy 48.1 ng/mL (Normal) Range: 30.0-100.0 Comments: Vitamin D deficiency has been defined by the [place] of[place]icine and an Endocrine Society practice guideline as alevel of serum 25-OH vitamin D less than 20 ng/mL (1,2).The Endocrine Society went on to further define vitamin Dinsufficiency as a level between 21 and 29 ng/mL (2).1. IOM ([place] of [place]). 2010. Dietary reference intakes for calcium and D. [place]: The National Academies Press.2. Tylor MF, [place] MAYNARD, Magan MARIE, et al. Evaluation, treatment, and prevention of vitamin D deficiency: an Endocrine Society clinical practice guideline. JCEM. 2010; 96(7):1911-30. 08-Nus-274968:33 LIPID PANEL (94305) Comments: PATIENT WAS FASTINGPERFORMED BY: [employer]6370 [facility] [id number] LDL/HDL Ratio 1.2 {ratio_units} (Normal) Range: 0.0-3.2 [...] MANUAL DIFF Comments: PATIENT WAS FASTINGPERFORMED BY: [facility] ResearchRiverview Medical CenterEnkaba5138 [facility] [id number] Information: [id number] (59507) Immature Grans (Abs) 0.0 {x10E3/uL} (Normal) Range: [...] 3.77-5.28 WBC 6.6 {x10E3/uL} (Normal) Range: 4.0-10.5 46-Khc-490132:33 METABOLIC PANEL, COMPREHENSIVE Comments: PATIENT WAS FASTINGPERFORMED BY: LabCoRiverview Medical CenterLwudqx4547 [facility] [id number] (05221) ALT (SGPT) 19 [iU]/L (Normal) Range: 0-32 [...] Glucose, Serum 95 mg/dL (Normal) Range: 65-99 02-Kft-693938:15 DEXA BONE DENSITY STUDY (HP) Radiology Report [...] than -1.5 would be considered abnormal. Refe william:1. NIH Osteoporosis and Related Bone Diseases http://www.osteo.org2. International Society for Clinical Densitometry http://www.iscd.org3. National Osteoporosis Foundation http://www.nof.org S igned:Brittny Carlson M.D.December 06, 2011 at 9:31:09 AM [phone] Signed MV/MV If you are the referring physician and would like to consult with theradiologist who provided this interpretation, please contact Brittny Du M.D. at . If this radiologist is unavailable, youwillbe directed to another radiologist to assist. If you are a patient with a question re garding this report, pleasecontactyour referring physician directly. Professional Interpretation Provided By: [employer], Phone , These documents contain legally protected [...] 12/06/11 1638 Sign by: BRITTNY DU MD 06-Jth-141650:14 BILAT SCRN DIGITAL & CAD Radiology Report [...] Carlson M.D.December 05, 2011 at 1:19:15 PM [phone] Signed MV/MV If you are the referring physician and would like to consult with theradiologist who provided this interpretation, please contact Brittny Du M.D. at . If this radiologist is unavailable, alexandre hdez directed to another radiologist to assist. If you are a patient with a question regarding this report, pleasecontactyour referring physician directly. Professional Interpretation Provided By: [employer], Phone , These documents contain legally protected [...] Sign by: BRITTNY DU MD :41 TSH (31699) Comments: PATIENT WAS FASTINGPERFORMED BY: CB [facility] Mwwgoc3256 Bet[address]ourt RoadDublin [place] [id number] TSH 4.390 {uIU/mL} (Normal) Range: 0.450-4.500 :41 Vitamin D Hydroxy (01446) Comments: PATIENT WAS FASTINGPERFORMED BY: CB [facility] Huokgo6436 Bet[address]ourt RoadDublin [place] [id number] Vitamin D, 25-Hydroxy 59.4 ng/mL (Normal) Range: 30.0-100.0 Comments: Vitamin D deficiency has been defined by the [place] of[place]icine and an Endocrine Society practice guideline as alevel of serum 25-OH vitamin D less than 20 ng/mL (1,2).The Endocrine Society went on to further define vitamin Dinsufficiency as a level between 21 and 29 ng/mL (2).1. IOM ([place] of [place]). 2010. Dietary reference intakes for calcium and D. [place]: The National Academies Press.2. Tylor MF, [place], Jaime-Uday MARIE, et al. Evaluation, treatment, and prevention of vitamin D deficiency: an Endocrine Society clinical practice guideline. JCEM. 2010; 96(7):1911-30. :41 CBC WITH MANUAL DIFF Comments: PATIENT WAS FASTINGPERFORMED BY: CB [facility] Rudomu5327 Bet[address]ourt RoadDublin [place] [id number] Information: [id number] (23331) Immature Grans (Abs) 0.0 {x10E3/uL} (Normal) Range: [...] 3.77-5.28 WBC 5.0 {x10E3/uL} (Normal) Range: 4.0-10.5 65-Xks-09536:41 METABOLIC PANEL, COMPREHENSIVE Comments: PATIENT WAS FASTINGPERFORMED BY: LabCoRiverview Medical CenterGsjsdo5529 [facility] [id number] (34793) ALT (SGPT) 16 [iU]/L (Normal) Range: 0-40 [...] Glucose, Serum 90 mg/dL (Normal) Range: 65-99 34-Toa-711845:42 SWALLOWING FUNCTION W/VIDEO Radiology Report See Note [...] Dictated on 10/13/10 1342 by Rod frias MD,GabrieleTranscribed on 10/13/101827 by ITS IMPORTSign by Adrián Geiger MD on 10/13/101828 Sign by: Adrián Geiger MD 05-Meb-324713:44 URINE SULAIMAN CULTURE-IDENTIFICATN Comments: PATIENT NOT FASTINGPERFORMED BY: LabHawthorn Children'S Psychiatric HospitalMfsxmq8879 [facility] [id number] Information: ADD [id number] (19575) Antimicrobial MIHEAD (Normal) Comments: S = Susceptible; [...] mL (Normal) Urine Final report (Normal) Culture,Comprehensive 95-Qsh-452965:31 Urinalysis, Office (83494) UA - BILIRUBIN Negative (Normal) UA - [...] difficile Toxins Negative (Normal) Comments: PERFORMED BY: [facility] [id number] 4:51 A+B, EIA :51 Stool Culture Comments: PERFORMED BY: [employer]s [facility] [id number] Information: SRC:ST E coli Shiga Toxin EIA Negative (Normal) Campylobacter Culture Final report (Normal) Result 1 NCI (Normal) Comments: No Campylobacter species isolated. Result 1 NSS (Normal) Comments: No Salmonella or Shigella recovered. Salmonella/Shigella Screen Final report (Normal) :51 White Blood Cells (WBC), Comments: PERFORMED BY: [employer]70 BetancourtAeropostAtrium Health [facility] [id number] Stool Result 1 NWBC (Normal) Comments: No white blood cells seen. White Blood Cells (WBC), Final report (Normal) Comments: Reference Range: None Seen Stool :45 Microscopic Examination Comments: PATIENT NOT FASTINGPERFORMED BY: Nymirum6370 [facility] [id number] Bacteria Many (Abnormal) Mucus Threads Present (Normal) Epithelial Cells (non renal) 0-10 {/hpf} (Normal) Range: 0 - 10 RBC 0-3 {/hpf} (Normal) Range: 0 - 3 WBC 6-10 {/hpf} (Abnormal) Range: 0 - 5 :10 CHEST, PA AND LATERAL Radiology Report See Note (Normal) Comments: REASON FOR EXAM: Female, 60 years old. Bacterial pneumonia./Short ofbreath/wheezing PROCEDURE: X-RAY CHEST TECHNIQUE: PA and lateral views of the chest. COMPARISON January 25, 2009 and number 2007 FINDINGS: There is hyperinflation compatible with [...] 09/26/10 1639 Sign by: BRET STRATTON MD 83-Yay-897166:26 Vitamin D Hydroxy (95961) Comments: PATIENT WAS FASTINGPERFORMED BY: [place] [place] [id number] Vitamin D, 25-Hydroxy 58.5 ng/mL (Normal) Range: 32.0-100.0 Comments: Recent studies consider the lower limit of 32.0 ng/mL to be athreshold for optimal health.Gage JARAMILLO. J Nutr. 2004;135(2):317-22. 83-Pgx-275506:45 URINALYSIS, W/ MICRO (60559) Comments: PATIENT NOT FASTINGPERFORMED BY: [employer] [place] [id number]; appt 10/04/10 Microscopic Examination See below: (Normal) Nitrite, Urine Positive (Abnormal) Bilirubin Negative (Normal) Ketones Negative (Normal) Occult Blood Negative (Normal) Urobilinogen,Semi-Qn 0.2 mg/dL (Normal) Range: 0.0-1.9 Glucose Negative (Normal) Protein Trace (Normal) WBC Esterase 2+ (Abnormal) Appearance Cloudy (Abnormal) Urine-Color Yellow (Normal) pH 7.0 (Normal) Range: 5.0-7.5 Specific Loraine 1.022 (Normal) Range: 1.005-1.030 :26 TSH (03756) Comments: PATIENT WAS FASTINGPERFORMED BY: [employer] [place] [id number] TSH 3.110 {uIU/mL} (Normal) Range: 0.450-4.500 :26 METABOLIC PANEL, COMPREHENSIVE Comments: PATIENT WAS FASTINGPERFORMED BY: LabCoRiverview Medical CenterJvcvkg7588 [facility] [id number] (35403) ALT (SGPT) 21 [iU]/L (Normal) Range: 0-40 [...] Glucose, Serum 94 mg/dL (Normal) Range: 65-99 :26 LIPID PANEL (12827) Comments: PATIENT WAS FASTINGPERFORMED BY: LabCoRiverview Medical CenterPckbda4651 [facility] [id number] HDL Cholesterol 86 mg/dL (Normal) Comments: According to ATP-III Guidelines, HDL-C >59 mg/dL is considered anegative risk factor for CHD. LDL Cholesterol Calc 112 mg/dL (Abnormal) Range: 0-99 LDL/HDL Ratio 1.3 {ratio_units} (Normal) Range: 0.0-3.2 VLDL Cholesterol Ben 12 mg/dL (Normal) Range: 5-40 Cholesterol, Total 210 mg/dL (Abnormal) Range: 100-199 Triglycerides 62 mg/dL (Normal) Range: 0-149 69-Jwe-621512:26 CBC WITH MANUAL DIFF (18840) Comments: PATIENT WAS FASTINGPERFORMED BY: LabCoRiverview Medical CenterQvgbnx4640 [facility] [id number] Baso (Absolute) 0.0 {x10E3/uL} (Normal) Range: 0.0-0.2 [...] 3.80-5.10 WBC 7.3 {x10E3/uL} (Normal) Range: 4.0-10.5 86-Xxk-997449:09 BILAT SCRN DIGITAL & CAD Radiology Report See Note (Normal) Comments: Exam Number: [id number] AMMOGRAPHY - BILATERAL SCREENING INDICATION:Routine annual screening [...] reymundo a ResultCode to this exam. ADDENDUM: [id number] HPBI/MDS Reported By: BRET STRATTON M.D. 03-Qwi-896573:54 DEXA BONE DENSITY STUDY (HP) Radiology Report See Note (Normal) Comments: Exam Number: [id number] BONE DENSITOMETRY HISTORYOsteopenia. TECHNIQUE Bone densitometry of the lumbar spine and both hips is now beingperformed. The best criteria for evaluation of os teoporosis i s theT-value, which represents the comparison of the patient's bone mass esvin expected peak bone mass. For most patients, the mean T-value of W7klyfkbv L4 is used to evaluate the lumbar [...] both hips. Reported By: BRET STRATTON M.D. 68-Jbd-983505:15 [facility] Report See Note (Normal) Comments: Exam Number: [id number] MAMMOGRAM, BILATERAL SCREENING DIGITAL AND CAD HISTORYRoutine screening. Full field digital images were obtained in mediolateral oblique andcraniocaudal projections. CAD images w ere reviewed. The current study is compared to the examinations of May 12, 2002and January 11, 2005 from the [facility]. There is a severe extent of fibroglandular [...] mammograms werealso examined with computer-aided detection software (Image[employer] Watch, [employer] Reported By: BRET STRATTON M.D. :15 LIPID PANEL (12010) Comments: PATIENT WAS FASTINGPERFORMED BY: [facility] HospitalOpenWhereRiverview Medical CenterHkvqvz7154 [facility] [id number] Cholesterol, Total 208 mg/dL (Abnormal) Range: 100-199 [...] PANEL, COMPREHENSIVE Comments: PATIENT WAS FASTINGPERFORMED BY: LabOpenWhereRiverview Medical CenterCkcwtw5427 [facility] [id number] (38172) A/G Ratio 2.0 (Normal) Range: 1.1-2.5 Albumin, [...] Sodium, Serum 143 mmol/L (Normal) Range: 135-145 87-Nib-92916:15 CBC WITH MANUAL DIFF (07024) Comments: PATIENT WAS FASTINGClinical Information: [id number] PERFORMED BY: [facility] Cbkyqq1886 [facility] [id number] Baso (Absolute) 0.0 {x10E3/uL} (Normal) Range: 0.0-0.2 [...] 6.1 {x10E3/uL} (Normal) Range: 4.0-10.5 :15 TSH (26402) Comments: PATIENT WAS FASTINGPERFORMED BY: [facility] Wensqr9229 [facility] [place] [id number] TSH 4.390 {uIU/mL} (Normal) Range: 0.450-4.500 :15 Vitamin D Hydroxy (12238) Comments: PATIENT WAS FASTINGPERFORMED BY: [facility] Wgpbpk9686 [address] [facility] [id number] Vitamin D, 25-Hydroxy 50.0 ng/mL (Normal) Range: 32.0-100.0 Comments: Recent studies consider the lower limit of 32.0 ng/mL to be athreshold for optimal health.Gage JARAMILLO. J Nutr. 2004;135(2):317-22. 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 Osteopenia : Bisphosphonate Education Indication: Osteopenia Planned Observations URINE SULAIMAN CULTURE-LEWIS COL COUNT (84516)Indication: UTI (urinary tract infection) On: 16-Wgu-175232:25 Request URINE SULAIMAN CULTURE-IDENTIFICATN (29542)Indication: Mixed incontinence On: 09-Adm-194740:52 Request Vitamin D Hydroxy (92695)Indication: Chronic fatigue On: 38-Fwb-612001:04 Request CBC, PLATELETS & AUT DIFF (39041)Indication: Chronic fatigue On: 47-Yoh-898786:03 Request VITAMIN B-12 (CYANOCOBALAMIN) (02307)Indication: Chronic fatigue On: 24-Eyl-592461:03 Request TSH (50279)Indication: Osteoporosis of multiple sites On: 76-Iet-423726:01 Request URINALYSIS, W/ MICRO (92355)Indication: Benign Essential Hypertension (Renamed from Benign essential HTN) On: 31-Tlo-661579:01 Request LIPID PANEL (89162)Indication: Benign Essential Hypertension (Renamed from Benign essential HTN) On: 84-Wef-737111:00 Request METABOLIC PANEL, COMPREHENSIVE (55106)Indication: Benign Essential Hypertension (Renamed from Benign essential HTN) On: 36-Twi-760799:00 Request SPEP (17540)Indication: Osteoporosis of multiple sites On: 2-Efk-475774:20 Request UPEP (72890)Indication: Osteoporosis of multiple sites On: 8-Enq-620080:19 Request URINALYSIS, W/ MICRO (08073)Indication: Elevated blood-pressure reading without diagnosis of hypertension On: 3-Fah-273722:52 Request URINALYSIS, W/ MICRO (10153)Indication: Elevated blood-pressure reading without diagnosis of hypertension On: 3-Lmq-215144:20 Request URINE SULAIMAN CULTURE-LEWIS COL COUNT (60240)Indication: Abnormal urine On: :20 Request Urinalysis, Office (97373)Indication: Abnormal urine On: 87-Fit-903177:19 Request SULAIMAN CULTURE-STOOL (51403)Indication: Diarrhea On: 23-Jpt-798034:13 Request Clostridium difficile Toxin A+B, EIA (67964)Indication: Diarrhea On: 37-Mnh-379011:13 Request LEUKOCYTE COUNT, FECAL (49442)Indication: Diarrhea On: 08-Kci-065199:58 Request C-DIFFICILE, STOOL (25362)Indication: Diarrhea On: 86-Sud-312347:58 Request URINALYSIS W/O MICRO (06914)Indication: Osteopenia On: 38-Xwh-598869:23 Request METABOLIC PANEL, COMPREHENSIVE (32153)Indication: Osteopenia On: :33 Request CBC WITH MANUAL DIFF (67311)Indication: Osteopenia On: :33 Request TSH (20564)Indication: Osteopenia On: :33 Request Vitamin D Hydroxy (83429)Indication: Osteopenia On: :33 Request URINE SULAIMAN CULTURE (LEWIS COL COUNT) (83593)Indication: Dysuria On: 68-Qvv-599150:55 Request Planned Encounters Medical; [facility] 3 Month FU - On: 23-Apr-2018 13:00 [facility] Fast DO, Allison A Fast DO, Allison A Planned Procedures DEXA SCAN AXIAL SKELETON ([id number])By: On: 18-Jan-2018 Intent Fast DO, Allison A Fast DO, Allison A SCREENING DIGITAL TOMOSYNTHESIS OF On: 18-Jan-2018 Intent BREAST ([id number])By: Fast DO, Allison A Fast DO, Allison A Flu Vaccine (Quadrivalent) [id number]: On: 18-Jan-2018 Intent Fast DO, Allison A Fast DO, Allison A Comments: Lot: #[id number]: 10/13/18Site: L dltd, IMDose prefilled syringegiven by: Diaz reviewed and ABN signed ELECTROCARDIOGRAM, COMPLETE (ECG) On: 05-Sep-2017 Intent ([id number])By: Fast DO, Allison A Fast DO, Comments: ekg showed normal sinus rhythym, normal axis, no acute st/t wave changes Allison A Flu Vaccine (Quadrivalent) 84326Xt: On: 11-Apr-2017 Intent Fast DO, Allison A Fast DO, Allison A Comments: Lot:[id number]:07/2017Dose:0.5mLRoute:IMSite:L DltdGiven By:ALVIN signed Radiology - Chest- PA and LatBy: On: 16-Jan-2017 Intent Guy DURAN, Allison A Fast DO, Allison A Comments: stat call results Aerosol Treatment ([id number])By: Guy On: 16-Jan-2017 Intent DO, Allison A Fast DO, Allison A SCREENING DIGITAL TOMOSYNTHESIS OF On: 12-Dec-2016 Intent BREAST ([id number])By: Nelsy Tovar DOa A Comments: end of feb Guy DURAN Allison A ELECTROCARDIOGRAM, COMPLETE (ECG) On: 12-Jun-2016 Intent (27196)By: Allison Tovar DO Fast DO, Comments: ekg showed normal sinus [...] hips and spine. DEXA SCAN AXIAL SKELETON (75371)By: On: 29-Feb-2016 Intent Guy DURAN, Allison A Fast DO, Allison A MAMMOGRAM, SCREENING, BOTH BREAST On: 29-Feb-2016 Intent (27386)By: Allison Tovar DO DO, Allison A Radiology - Lumbar SpineBy: Guy DURAN, On: 26-Jan-2016 Intent Allison A Guy DO, Allison A Flu Vaccine (Quadrivalent) 60509Ym: On: 25-Jan-2016 Intent Guy DURAN, Allison A Fast DO, Allison A Comments: Lot #:[id number] date:10/13/16mount given:0.5 mlRoute: IMSite given: right delGiven by: DIOR Trevino ADMINISTRATION OF INFLUENZA VIRUS On: 25-Jan-2016 Intent VACCINE ([id number])By: Allison Tovar DO, DO, Allison A MRI OF BRAIN WITH AND WITHOUT On: 11-Oct-2015 Intent CONTRAST ([id number])By: Allison Tovar DO A Comments: and ms and issues with inability to speak and bladder incontinence Allison Tovar DO A INJECTION, PROLIA ([id number])By: Guy On: 02-Jul-2015 Intent , Allison A Guy DO, Allison A Comments: Lot:[id number]:12/01Dose:60mlRoute:sub q Site:l armGiven By:ALVIN signed Flu Vaccine (Quadrivalent) 09139Fl: On: 01-Feb-2015 Intent Fast DO, Allison A Fast DO, Allison A Comments: Lot:[id number]:10/14/15Dose:0.5mLRoute:IMSite:L DltdGiven By:ALVIN signed INJECTION, PROLIA (J0897)By: Guy On: 24-Dec-2014 Intent DO, Allison A Fast DO, Allison A Comments: Lot:[id number]:04/01Dose:0.65MLRoute:sub qSite:l arm Given By:ALVIN signed Radiology - Hip - RightBy: Fast DO, On: 05-Oct-2014 Intent Allison A Fast DO, Allison A EKG (82509)By: Fast DO, Allison A On: 05-Oct-2014 Intent Fast DO, Allison A Comments: ekg showed normal sinus rhythym, normal axis, no acute st/t wave changes lvh MAMMOGRAM, SCREENING, BOTH BREAST On: 05-Oct-2014 Intent (98429)By: Fast DO, Allison A Fast DO, Allison A INJECTION, PROLIA ([id number])By: Guy On: 17-Jun-2014 Intent DO, Allison A Fast DO, Allison A Comments: lot: [id number]: 12/31site/route: L arm/SQamt: prefilled syringe, 60mgVIS signed when applicableChelsea, [facility] OF INFLUENZA VIRUS On: 16-Feb-2014 Intent VACCINE (G0008)By: Visit, Nurse Flu Vaccine (Quadrivalent) 54684Qb: On: 16-Feb-2014 Intent Fast DO, Allison A Fast DO, Allison A Comments: Lot:[id number]:09/28Dose:0.5mLRoute:IMSite:L DltdGiven By:ALVIN signed INJECTION, PROLIA (J0897)By: Linn, On: 08-Jan-2014 Intent Nurse Comments: [id number]/1760mgR arm, SCMegan IMMUNIZ ADMNIN, 1 VAC, SNGL/COMBO On: 24-Nov-2013 Intent (03716)By: Fast DO, Allison A Fast DO, Allison A PNEUM VAC ADLT/IMUMNOSPR, SBC/INTRM On: 24-Nov-2013 Intent (45261)By: Fast DO, Allison A Fast DO, Comments: lot [id number] 06/10/14location L deltoidroute imgiven by - msmith VIS and/or ABN signed Allison A DEXA SCAN AXIAL SKELETON (34158)By: On: 24-Nov-2013 Intent Fast DO, Allison A Fast DO, Allison A MAMMOGRAM, SCREENING, BOTH BREAST On: 24-Nov-2013 Intent (80115)By: Fast DO, Allison A Fast DO, Allison A MAMMOGRAM, SCREENING, BOTH BREASTS On: 18-Nov-2012 Intent (46421)By: Fast DO, Allison A Fast DO, Comments: november Allison A Eprescribed prescriptions ([id number])By: On: 18-Nov-2012 Intent Kinjal Zacarias FLU VAC, SPLIT, >3 YEARS, INTRAMUSC On: 20-Dec-2011 Intent (96107)By: Kinjal Zacarias Comments: Lot #:[id number] date:mount given:0.5mlRoute: IMSite given: left deltoidGiven by: DIOR TrevinoIZ ADMNIN, 1 VAC, SNGL/COMBO On: 20-Dec-2011 Intent (76874)By: Kinjal Zacarias EKG (26825)By: Fast DO, Allison A On: 21-Nov-2011 Intent Fast DO, Allison A Comments: ekg showed normal sinus rhythym, normal axis, no acute st/t wave changes lvh no change Eprescribed prescriptions (G8553)By: On: 21-Nov-2011 Intent Fast DO, Allison A Fast DO, Allison A MAMMOGRAM, SCREENING, BOTH BREASTS On: 21-Nov-2011 Intent (61119)By: Fast DO, Allison A Fast DO, Allison A DXA, BONE DENSITY, AXIAL SKELETON On: 21-Nov-2011 Intent (20777)By: Fast DO, Allison A Fast DO, Allison A TDAP VACCINE >7 IM (81268)By: On: 21-Nov-2011 Intent Kinjal Zacarias Comments: T-Dap InjLot:[id number]:02/21/14Site:right deltoid,IMGiven By:MINDA JORGENSEN VAC, SPLIT, >3 YEARS, INTRAMUSC On: 30-Jan-2011 Intent (67495)By: Suzanne Ramon RN Comments: Lot #: [id number] date: 09/25Amount given: 0.5 mlRoute: IMSite given: left deltoidGiven by: JONNIE Angeles IMMUNIZ ADMNIN, 1 VAC, SNGL/COMBO On: 30-Jan-2011 Intent (18776)By: Suzanne Ramon RN Endoscopy - Cookie SwallowBy: On: 04-Oct-2010 Intent Kinjal Zacarias PFT - CompleteBy: Fast DO, Allison A On: 04-Oct-2010 Intent Fast DO, Allison A Pulse Oximetry (01727)By: Ntaalya RUBIO, On: 28-Sep-2010 Intent Valeria Springer Aerosol Treatment (04605)By: Natalya On: 28-Sep-2010 Intent Valeria RUBIO Radiology - ChestBy: Valeria Hoang CNP On: 26-Sep-2010 Intent E Comments: call wet read Eprescribed prescriptions (G8553)By: On: 26-Sep-2010 Intent Natalya RUBIO Taryn Inhaler Demonstration (99369)By: On: 26-Sep-2010 Intent Natalya RUBIO Taryn Pulse Oximetry (51628)By: Natalya RUBIO On: 26-Sep-2010 Intent Valeria Springer Aerosol Treatment (03795)By: Natalya On: 26-Sep-2010 Intent JOANNE Taryn MAMMOGRAM, SCREENING, BOTH BREASTS On: 07-Sep-2009 Intent (05348)By: Fast DO Allison A Fast DO, Comments: due in feb Allison A IMMUNIZ ADMNIN, 1 VAC, SNGL/COMBO On: 21-Jan-2009 Intent (17150)By: Suzanne Ramon RN FLU VAC, SPLIT, >3 YEARS, INTRAMUSC On: 21-Jan-2009 Intent (21414)By: Suzanne Ramon RN MAMMOGRAM, SCREENING, BOTH BREASTS On: 24-Dec-2008 Intent (47675)By: Fast DO, Allison A Fast DO, Allison A DXA, BONE DENSITY, AXIAL SKELETON On: 24-Dec-2008 Intent (69817)By: Fast DO, Allison A Fast DO, Allison A PFT - CompleteBy: Fast DO, Allison A On: 24-Dec-2008 Intent Fast DO, Allison A Comments: at [facility] office PNEUM VAC ADLT/IMUMNOSPR, SBC/INTRM On: 01-Apr-2008 Intent (71740)By: Melanie Goldstein Comments: Lot #[id number]/24Site-left deltoidDose0.5mlgiven by Sabiha Goldstein LPN IMMUNIZ ADMNIN, 1 VAC, SNGL/COMBO On: 01-Apr-2008 Intent (15664)By: Melanie Goldstein Echo CompleteBy: Fast DO, Allison A On: 01-Apr-2008 Intent Fast DO, Allison A Comments: next week- please- for preop Spirometry (84604)By: Fast DO, On: 01-Apr-2008 Intent Allison A Fast DO, Allison A Radiology - Chest- PA and LatBy: On: 01-Apr-2008 Intent Fast DO, Allison A Fast DO, Allison A EKG (94206)By: Kinjal Zacarias On: 01-Apr-2008 Intent Comments: ekg showed normal sinus rhythym, normal axis, no acute st/t wave changes lvh FLU VAC, SPLIT, >3 YEARS, INTRAMUSC On: 18-Feb-2007 Intent (91297)By: Suzanne Ramon RN Comments: Lot #: [id number] date: 09/21Amount given: 0.5 mlRoute: IMSite given: Left deltoidGiven by: Sushila Torres LPN IMMUNIZ ADMNIN, 1 VAC, SNGL/COMBO On: 18-Feb-2007 Intent (27977)By: Suzanne Ramon RN Planned Medications INJECTION, PROLIA [...] mdvip wellness exam : Patient Instructions Indication: mdvi wellness exam Hallucinations, visual : How to [...] services in there till he retires. Or jew members helping. Incontinence getting worse.), has decreased [...] Follow up for chronic medical issues: saw [facility] neurologist at [facility]- they are trying to get her on tiera soares/cynthia stratton- neuro at [facility]- she really struggling to get around- [...] since not on Provigil since week of thanksgiv ing she feels she has went backwards again.- she has taken provigil for 15 years andnow insurance wont cover- so tired alot and [facility] tried to prior auth for her - wont go thru- hubalba present says patient really much more down [...] mood- she tolerating prolia well- she sees [facility] forms -not on meds and had discussed [...] 11:23 a copy of her pfts from [facility]- she sees him again in mar- she [...] she saw all the tb people at [facility] in june- she has appt with Alexandre [...]
--- OUTSIDE RECORDS SUMMARY | 2018-05-09 15:54 | XMS RPT_ITS ---
:1950 Author Organization [facility] Care Team Providers Name Role Phone Fast, Allison Attending Unavailable Fast, Allison Primary Care Unavailable Fast, Allison Attending Unavailable Fast, Allison Referring Unavailable Fast, Allison Primary Care Unavailable PROBLEMS PROBLEMS No Problem Records FoundPROCEDURES PROCEDURES No Procedure Records FoundRESULTS RESULTS DEXA BONE DENSITY Observed: 03/14/2018 Status: F Source: [facility] 12:38 PM [facility] [place] [facility] Imaging Services [address] [place] [id number] Dexa Bone Density Study MR#: [id number] Acct: [id number] Name: GREY WOMACK Rep #: [id number] : 1950 F 67 From: Adrián Geiger MD PCP: Allison Tovar DO Status: REG CLI Study: Dexa Bone Density Study Date of Exam: 03/14/18 Exam# [id number] Ordering Dr: Allison Tovar DO STUDY: DUAL ENERGY X-RAY ABSORPTIOMETRY / DXA REASON FOR EXAM: Female, 67 years old. The patient is postmenopausal. Loss of height. TECHNIQUE: Bone Mineral Density (BMD) measurements of lumbar spine and bilateral hips were obtained. COMPARISON: Comparison is made with prior study dated March 08, 2016. FINDINGS: Lumbar Spine (L1-L4): g/cm2 (1.223) / T-score (0.4) / Z-score (2.1) Findings are suggestive of normal bone density with a low fracture risk. Left Femur Total: g/cm2 (0.636) / T-score (-2.9) / Z- score (-1.7) Left Femoral Neck: g/cm2 (0.682) / T-score (-2.6) / Z- score (-1.0) Right Femur Total: g/cm2 (0.594) / T-score (-3.3) / Z- score (-2.0) Right Femoral Neck: g/cm2 (0.686) / T-score (-2.5) / Z-score (-1.0) The T-Scores on the most recent prior examination were: Lumbar Spine (L1-L4): There has been improvement of bone density since the previous examination. Left Femur Total: which represents a worsening of 9.8%. Right Femur Total: which represents a worsening of 14.9%. BD/Dexa Bone Density Study IMPRESSION: The patient is considered osteoporotic as outlined below according to World Edmar Organization (WHO) criteria with a high fracture risk. There has been worsening of bone density since the previous examination. Reference Information: The T-score is the number of standard deviations above or below the standard which is normal for young adults at their peak bone mineral density. The World Health Organization (WHO) interprets the T-scores as follows: Above -1 Normal bone density Between -1 and -2.5 Osteopenia Equal to / [...] References: 1. NIH Osteoporosis and Related Bone Diseases http://www.osteo.org 2. International Society for Clinical Densitometry http://www.iscd.org 3. National Osteoporosis Foundation http://www.nof.org Electronically Signed: Adrián Geiger MD at 13:08 EST Tel [phone], Service support , CC: Allison Tovar DO Manager Enterprise: Signed SCREENING MAMM (CAD), Observed: 03/14/2018 Status: F Source: [facility] 12:38 PM [facility] [place] [facility] Imaging Services [address] [place] [address] SCREENING MAMM (CAD), BILAT MR#: [id number] Acct: [id number] Name: GREY WOMACK Rep #: [id number] : 1950 F 67 From: Adrián Geiger MD PCP: Allison Tovar DO Status: REG CLI Study: SCREENING MAMM (CAD), BILAT Date of Exam: 03/14/18 Exam# [id number] Ordering Dr: Allison Tovar DO MAMMOGRAPHY - BILATERAL SCREENING REASON FOR EXAM: Female, 67 years old. Routine annual screening examination. PERTINENT HISTORY: Mother with breast cancer. Grandmother with breast cancer. TECHNIQUE: Digital bilateral breast luis antonio (3D mammographic acquisition) in the CC and MLO projections. 2-D mediolateral oblique (MLO) and craniocaudad (CC) views of both breasts were obtained. CAD: Full Field Digital Mammography with Computer Added Detection was performed. COMPARISON: Comparison is made with prior study a number 02/11/2016 and March 08, 2016. FINDINGS: Breast Composition: The breasts are heterogeneously dense, which may obscure small masses. There are no dominant masses or suspicious calcifications. No other significant abnormalities are identified. There has been no significant change since the prior study. BI/SCREENING MAMM (CAD), BILAT IMPRESSION: Stable bilateral screening mammogram. Yearly follow-up mammogram recommended. (A) ASSESSMENT CATEGORY: BIRADS Category 1: Negative. A letter regarding these results will be sent to the patient by the facility within 30 days. Approximately 10% of breast cancers are not detected by mammography. A normal mammogram should not delay biopsy of a clinically suspicious abnormality. [id number] Electronically Signed: Adrián Geiger MD at 14:41 EST Tel [phone], Service support , CC: Allison Tovar DO Manager Enterprise: Signed ALLERGIES ALLERGIES No Allergies Records FoundENCOUNTERS ENCOUNTERS ADMIT/DISCHARGE ACCOUNT ADMITTING ENCOUNTER LOCATION SOURCE NUMBER CLASS 03/14/2018 [id number] Ambulatory Phillip [facility] ing:OPBD Repository 09/26/2017 [id number] Ambulatory Phillip Phillip 9 [facility] ing:[facility] Repository PAYERS PAYERS ENCOUNTER GUARANTOR PAYER SUBSCRIBER SOURCE 03/14/2018 CHRISTOPHER R Primary CHRISTOPHER R Phillip [id number] Insurance:ANTHEMPolic COTTRELDOB: [facility] [id number] [id number] Repository 21629Vdx: [phone] uche Date:[id number] [phone] () [id number] [place] [address]SB: 03/14/2018 Secondary NOT GIVENUNK Black[place] Insurance:SELF PAY [facility] Number: Effective Repository Date:2018-01-18 09/26/2017 Christopher R Rev Primary NOT GIVENUNK Phillip [id number] Insurance:SELF PAY [place], [place] Number: Effective Repository [id number]: ([phone]) Date:2017-09-05 [phone] ()
== END ==
PROVIDERS: Family Provider Internal Medicine; PCP Internal Medicine; Referring Provider Internal Medicine; Visit Provider Internal Medicine
DX: Z12.31 Encounter for screening mammogram for malignant neoplasm of breast (principal); Z78.0 Asymptomatic menopausal state
CPT/HCPCS: 77063; 77067; 77080

== ENCOUNTER → 2018-09-04 16:01 | Outpatient (CLI) | payer BC, SELFPAY ==
--- NOTE | 2018-09-04 16:11 | RAD_ITS ---
STUDY: X-RAY - THORACIC SPINE REASON FOR EXAM: Female, 68 years old. Pain TECHNIQUE: 3 view(s) of the thoracic spine were obtained. COMPARISON: None. FINDINGS: There is straightening of the normal thoracic kyphosis. There is a mild dextroscoliosis. There is multilevel endplate spondylosis of the thoracic vertebrae. There is multilevel disc space narrowing of the thoracic spine. The soft tissue structures are unremarkable. RAD/Thoracic Spine 3 Views IMPRESSION: Multilevel degenerative changes Electronically Signed: Jacob Grubbs MD at 12:59 EDT , Service support ,
--- NOTE | 2018-09-04 16:11 | RAD_ITS ---
STUDY: X-RAY - LUMBAR SPINE REASON FOR EXAM: Female, 68 years old. Left hip pain TECHNIQUE: 5 view(s) of the lumbar spine were obtained. COMPARISON: None FINDINGS: A 25 degree thoracolumbar scoliosis with convexity to the right with the apex at L1. There are no acute fractures or dislocations. There is not enough almost all the disc spaces except for L5-S1. The pedicles are intact. RAD/L/S Spine Min 4 Views IMPRESSION: Altered level intervertebral osteochondrosis. No acute fractures. A 25 degree thoracolumbar scoliosis with convexity to the right with the apex at L1 Electronically Signed: Ananda Albarado MD at 7:28 EDT Tel , Service support ,
--- NOTE | 2018-09-04 16:12 | RAD_ITS ---
STUDY: X-RAY - PELVIS AND LEFT HIP REASON FOR EXAM: Female, 68 years old. Left hip pain TECHNIQUE: 3 views of the pelvis and hip. COMPARISON: None. FINDINGS: The sacroiliac and hip joints are normal. There are no acute fractures or dislocations. A 1 cm calcified nodule is seen in the left groin. A calcified lymph node. There is mild fecal stasis. RAD/HIP, UNI W/ Pelvis 2-3 Views IMPRESSION: No fractures. The sacroiliac and hip joints are normal Electronically Signed: Ananda Albarado MD at 7:23 EDT Tel , Service support ,
--- NOTE | 2018-09-04 17:09 | CT_ITS ---
STUDY: CT ABDOMEN AND PELVIS WITH CONTRAST REASON FOR EXAM: Female, 68 years old. Abdominal mass palpated on physical exam RADIATION DOSAGE (If Supplied By Facility): CTDIvol = ( 11.56 ) mGy, DLP = ( 1005.19 ) mGycm TECHNIQUE: Transaxial images were obtained from the dome of the diaphragm to the symphysis pubis without oral contrast. 100 IV/Oral Isovue 250 was administered. Sagittal and coronal images were reconstructed. Individualized dose optimization techniques were used for this CT. COMPARISON: None. FINDINGS: Mild scar formation at bilateral lung bases. The visualized portions of the heart are within normal limits. Small hypoattenuated foci in the right posterior hepatic segment. Normal gallbladder and extrahepatic biliary system. Hypoattenuated lesion in the anterior splenic pole. Normal pancreas. Normal bilateral adrenal glands. Normal right kidney. Normal left kidney. Normal bilateral ureters. Small hiatal hernia. Stomach is otherwise unremarkable. Normal small intestine. The appendix is visualized and appears normal. Moderate stool burden throughout the colon. No colonic wall thickening. Normal abdominal aorta. Normal inferior vena cava. Normal retroperitoneum. Normal urinary bladder. Uterus is surgically absent. Normal abdominal wall. There are moderate diffuse degenerative changes of the visualized lumbar spine. CT/Abdomen/Pelvis WITH Contrast IMPRESSION: 1. No evidence of an acute intra-abdominal abnormality. 2. Moderate constipation. 3. Hypoattenuated lesions in the right posterior hepatic segment, too small to characterize but likely representing cysts versus hemangiomas. 4. Small hiatal hernia. Electronically Signed: Cullen Thomas MD at 5:13 EDT Tel , Service support ,
== END ==
PROVIDERS: Family Provider Internal Medicine; PCP Internal Medicine; Referring Provider Internal Medicine; Visit Provider Internal Medicine
DX: R19.00 Intra-abdominal and pelvic swelling, mass and lump, unspecified site (principal); M43.9 Deforming dorsopathy, unspecified; M25.552 Pain in left hip
CPT/HCPCS: 72072; 72100; 72110; 73502; 74177; Q9967

== ENCOUNTER → 2019-03-22 10:13 | Outpatient (CLI) | payer MEDICARE, OTHER, SELFPAY ==
--- NOTE | 2019-03-22 10:18 | BI_ITS ---
MAMMOGRAPHY - BILATERAL SCREENING REASON FOR EXAM: Female, 68 years old. Routine annual screening examination. PERTINENT HISTORY: Mother with breast cancer. Grandmother with breast cancer. TECHNIQUE: Digital bilateral breast sheila (3D mammographic acquisition) in the CC and MLO projections. 2-D mediolateral oblique (MLO) and craniocaudad (CC) views of both breasts were obtained. CAD: Full Field Digital Mammography with Computer Added Detection was performed. COMPARISON: Comparison is made with prior study dated March 14, 2018 and March 12, 2017. FINDINGS: Breast Composition: The breasts are heterogeneously dense, which may obscure small masses. There are no dominant masses or suspicious calcifications. No other significant abnormalities are identified. There has been no significant change since the prior study. BI/SCREEN MAMM (CAD) W/SHEILA BILAT IMPRESSION: Stable bilateral screening mammogram. Yearly follow-up mammogram recommended. (A) ASSESSMENT CATEGORY: BIRADS Category 1: Negative. A letter regarding these results will be sent to the patient by the facility within 30 days. Approximately 10% of breast cancers are not detected by mammography. A normal mammogram should not delay biopsy of a clinically suspicious abnormality. [id number] Electronically Signed: Adrián Geiger, at 9:02 EST , Service support ,
== END ==
PROVIDERS: Family Provider Internal Medicine; PCP Internal Medicine; Referring Provider Internal Medicine; Visit Provider Internal Medicine
DX: Z12.31 Encounter for screening mammogram for malignant neoplasm of breast (principal)
CPT/HCPCS: 77063; 77067

== ENCOUNTER → 2019-06-26 | Outpatient (CLI) | payer MEDICARE, OTHER, SELFPAY ==
[2019-06-26 14:09] VITALS: BP 128/74; PULSE 78; RESP 16; O2SAT 98; BMI 21.7
[2019-06-26] MEDS: DENOSUMAB 60 MG/ML ML SQ (14:22)
== END | disposition home or self-care (01) ==
LOC: MEDOUTP 13:57
PROVIDERS: PCP Internal Medicine; Referring Provider Internal Medicine; Visit Provider Internal Medicine
DX: M81.0 Age-related osteoporosis without current pathological fracture (principal)
CPT/HCPCS: 96372; J0897

== ENCOUNTER → 2020-09-28 14:23 | Outpatient (CLI) | payer MEDICARE, OTHER, SELFPAY ==
[2019-06-26 14:09] VITALS: BMI 21.7
[2020-09-28 14:35] VITALS: BP 111/74; PULSE 101; RESP 16; TEMP 36.3; O2SAT 97; BMI 23.0
[2020-09-28] MEDS: DENOSUMAB 60 MG/ML SC (14:59)
== END ==
PROVIDERS: PCP Internal Medicine; Referring Provider Internal Medicine; Visit Provider Internal Medicine
DX: M81.0 Age-related osteoporosis without current pathological fracture (principal)
CPT/HCPCS: 96372; J0897

== ENCOUNTER → 2021-02-07 13:21 | Outpatient (CLI) | payer MEDICARE, OTHER, SELFPAY ==
--- NOTE | 2021-02-07 15:36 | SP.MBSS_ITS ---
Modified Barium Swallow - Patient Information Study Date: 02/07/21 Study Time: 13:30 Direct Billable Minutes: 125 Total Minutes procedure & reportin Diagnosis: dysphagia Referring Physician: Allison Tovar Reason for Referral: Per order - Patient was referred for MBS to establish new baseline and to objectively assess swallow function as patient has had increased difficulty w/ thin liquids. Patient reports liquids going down the wrong pipe ~1-2x/week. Denies any other concerns re: swallow function at this time. Medical History: Multiple Sclerosis - patient denies: recent/recurrent PNA w/in the past 5 years, head/neck surgery, unintended weight loss Mental Status: WNL - sufficiently able to follow commands for participation in MBS Respiratory Status: Oxygenating on Room Air - Penetration-Aspiration Scale Penetration-Aspiration Scale: OBJECTIVE ASSESSMENT OF SWALLOW FUNCTION (QUANTITATIVE ? PER TRIAL): PENETRATION / ASPIRATION SCALE (JIMENEZ): 1 = does not enter airway 2 = enters airway/above vocal folds/ejected 3 = enters airway/above vocal folds/not ejected 4 = enters airway/contacts vocal folds/ejected 5 = enters airway/contacts vocal folds/not ejected 6 = enters airway/below vocal folds/ejected 7 = enters airway/below vocal folds/not ejected despite effort 8 = enters airway/below vocal folds/no effort - Penetration-Aspiration Scale Score Thin Liquid via teaspoon Result: 3= enters airways/above vocal folds/not ejected Comment: trace lining of laryngeal vestibule Thin Liquid via teaspoon Trial 2 Result: 1= does not enter airway Thin Liquid via small single sip from cup Result: 1= does not enter airway Thin Liquid via sequential sips from cup Result: 1= does not enter airway Sunbright Thick Liquid via small single sip from cup Result: 1= does not enter airway Pudding Result: 1= does not enter airway Cookie Result: 1= does not enter airway Thin Liquid via small single sip from cup Trial 2 Result: 1= does not enter airway - Oral Phase Labial Seal: Interlabial escape, no progression to anterior lip Tongue Control During Bolus Hold: Cohesive bolus between tongue to palatal seal Bolus Preparation/Mastication: Slow prolonged chewing/mashing with complete recollection Bolus Transport/Lingual Motion: Slowed tongue motion Oral Residue: Residue collection on oral structures - Pharyngeal Phase Initiation of Pharyngeal Swallow: Bolus head in pyriforms Soft Palate Elevation: No bolus between soft palate and pharyngeal wall Laryngeal Elevation: Partial superior movement thyroid cart/partial apprx aryt- epig petiole Anterior Hyoid Excursion: Partial anterior movement Epiglottic Movement: Partial inversion Laryngeal Vestibule Closure at Height of Swallow: Complete; no air/contrast in laryngeal vestibule Pharyngeal Stripping Wave: Present - complete Pharyngoesophageal Segment Opening: Parital distension and partial duration; parital obstruction of flow Tongue Base Retraction: Narrow column of contrast between tongue base & post. pharyngeal wall Pharyngeal Residue: Collection of residue within or on pharyngeal structures - Esophageal Phase Esophageal Clearance: Esophageal retention w/ retrograde flow through pharyngoesophageal seg - Diagnosis/Impression Diagnosis: mild oropharyngeal dysphagia (R13.12) Impression: Swallow function is characterized by: * slow but effective mastication * delayed pharyngeal swallow onset timing resulting in suboptimal bolus location (pyriform sinuses) upon swallow onset, although no significant impact on swallow function/airway protection * reduced anterior hyoid excursion resulting in insufficient epiglottic inversion * trace laryngeal vestibule penetration w/ initial bolus presented via teaspoon; sufficient airway protection across all remaining trials * reduced tongue base retraction and posterior pharyngeal stripping wave action coupled w/ incomplete epiglottic inversion resulted in post-prandial base of tongue and vallecular bolus retention; residue was sufficiently cleared w/ independently initiated second swallow or liquid wash * screening revealed timely esophageal bolus clearance Anatomical abnormalities: * kyphosis w/ wide pyriform sinus/pharyngeal space * cricopharyngeal bar at the level of C5; noted intermittent small volume of retrograde bolus flow through PES into pyriform sinuses * cervical osteophyte located at the C-6 C-7 level; no effect on pharyngoesophageal motility Diet Recommended: * Regular Texture (IDDSI: 7) * Thin Liquid (IDDSI: 0) Compensatory Strategies Recommended: * Small bites * Small sips * Slow rate of intake * Sit upright w/ hip flexion at 90 degrees during PO intake * Remain seated upright for 30-60 minutes after PO intake (GERD precautions) Additional Speech Therapy Services Recommended: No * Patient and were able to comprehend and express understanding of recommended intake precautions detailed above with sufficient detail to suggest high likelihood of compliance. Patient previously followed w/ home health speech therapy and has access to a home exercise program. No further skilled speech-language services warranted at this time targeting dysphagia. Education Provided: * Images were reviewed w/ the patient and her following MBS conclusion. * Extended time spent providing education re: anatomy/physiology of swallow function and how compensatory strategies recommended impact swallow function and reduce aspiration risk. * Results and recommendations were discussed w/ patient/ verbalizing understanding and agreement with recommended plan of care. - Status Active ST Patient: Active - Contact Information [facility] Speech Therapy:: Lissett Lora M.A., CCC-EMISSION SPECIALIST [address] [place] [address] [phone] [email or web address] 02/07/21 15:57
== END ==
PROVIDERS: PCP Internal Medicine; Referring Provider Internal Medicine; Visit Provider Internal Medicine
DX: R13.10 Dysphagia, unspecified (principal)
CPT/HCPCS: 74230; 92611

== ENCOUNTER → 2021-03-15 15:53 | Outpatient (CLI) | payer MEDICARE, OTHER, SELFPAY ==
--- NOTE | 2021-03-15 15:57 | BI_ITS ---
MAMMOGRAPHY - BILATERAL SCREENING REASON FOR EXAM: Female, 70 years old. Routine annual screening examination. PERTINENT HISTORY: Mother with breast cancer. Grandmother with breast cancer. TECHNIQUE: Digital bilateral breast sheila (3D mammographic acquisition) in the CC and MLO projections. 2-D mediolateral oblique (MLO) and craniocaudad (CC) views of both breasts were obtained. CAD: Full Field Digital Mammography with Computer Added Detection was performed. COMPARISON: Comparison is made with prior study dated 03/22/2019 and 03/14/2018. FINDINGS: Breast Composition: The breasts are heterogeneously dense, which may obscure small masses. There are no dominant masses or suspicious calcifications. No other significant abnormalities are identified. There has been no significant change since the prior study. BI/SCRN MAMM (CAD)W/SHEILA BILAT IMPRESSION: Stable bilateral screening mammogram. Yearly follow-up mammogram recommended. (A) ASSESSMENT CATEGORY: BIRADS Category 1: Negative. A letter regarding these results will be sent to the patient by the facility within 30 days. Approximately 10% of breast cancers are not detected by mammography. A normal mammogram should not delay biopsy of a clinically suspicious abnormality. [id number] Electronically Signed: Adrián Geiger MD at 8:41 EST , Service support ,
--- NOTE | 2021-03-15 15:57 | BD_ITS ---
STUDY: DUAL ENERGY X-RAY ABSORPTIOMETRY / DXA REASON FOR EXAM: Female, 70 years old. Z780. The patient is postmenopausal. TECHNIQUE: Bone Mineral Density (BMD) measurements of lumbar spine and bilateral hips were obtained. COMPARISON: Comparison is made with prior study 03/14/2018. FINDINGS: Lumbar Spine (L1-L4): g/cm2 (1.154) / T-score (0.9) / Z-score (3.0) Findings are suggestive of normal bone density with a low fracture risk. Left Femur Total: g/cm2 (0.663) / T-score (-2.3) / Z-score (-0.8) Left Femoral Neck: g/cm2 (0.511) / T-score (-3.0) / Z-score (-1.3) Right Femur Total: g/cm2 (0.631) / T-score (-2.6) / Z-score (-1.1) Right Femoral Neck: g/cm2 (0.573) / T-score (-2.5) / Z-score (-0.7) The T-Scores on the most recent prior examination were: Lumbar Spine (L1-L4): There has been improvement of bone density since the previous examination. Left Femur Total: which represents an improvement of 14.1%. Right Femur Total: which represents an improvement of 16.8%. BD/Dexa Bone Density Study IMPRESSION: The patient is considered osteoporotic as outlined below according to World Edmar Organization (WHO) criteria with a high fracture risk. There has been improvement of bone density since the previous examination. Reference Information: The T-score is the number of standard deviations above or below the standard which is normal for young adults at their peak bone mineral density. The World Health Organization (WHO) interprets the T-scores as follows: Above -1 Normal bone density Between -1 and -2.5 Osteopenia Equal to / or below -2.5 Osteoporosis As a practical clinical guideline, osteopenia may be graded as follows: Mild -1 through -1.5 Moderate -1.6 through -2.0 Severe -2.1 through -2.4 The Z-score is the number of standard deviations above or below age-matched controls. A Z-score of less than -1.5 would be considered abnormal. References: 1. NIH Osteoporosis and Related Bone Diseases www osteo.org 2. International Society for Clinical Densitometry www iscd.org 3. National Osteoporosis Foundation www nof.org Electronically Signed: Adrián Geiger MD at 10:16 EST , Service support ,
== END ==
PROVIDERS: PCP Internal Medicine; Visit Provider Internal Medicine
DX: Z78.0 Asymptomatic menopausal state (principal); Z12.31 Encounter for screening mammogram for malignant neoplasm of breast
CPT/HCPCS: 77063; 77067; 77080

== ENCOUNTER → 2021-03-29 14:25 | Outpatient (CLI) | payer MEDICARE, OTHER, SELFPAY ==
[2019-06-26 14:09] VITALS: BMI 21.7
[2021-03-29 14:38] VITALS: BP 118/73; PULSE 85; RESP 16; TEMP 35.5; O2SAT 100; BMI 21.7
[2021-03-29] MEDS: DENOSUMAB 60 MG/ML SC (14:41)
== END ==
PROVIDERS: PCP Internal Medicine; Referring Provider Internal Medicine; Visit Provider Internal Medicine
DX: M81.0 Age-related osteoporosis without current pathological fracture (principal)
CPT/HCPCS: 96372; J0897

== ENCOUNTER 2021-05-10 13:12 | Outpatient (CLI) | payer MEDICARE, OTHER, SELFPAY ==
--- NOTE | 2021-05-10 13:21 | MRI_ITS ---
HISTORY: MS- slight change in mobility, checking for new lesions. TECHNIQUE: Multiplanar and multisequence MR images of the brain were obtained without and with IV gadolinium. IV Contrast dosage and agent: 11 mL Dotarem. # of images incl. paperwork: 365. COMPARISON: 11/21/2016. FINDINGS: BRAIN PARENCHYMA: Increased T2 FLAIR signal in the periventricular white matter with involvement of the callososeptal interface. Mildly increased size of lesions in the right occipitotemporal and left temporal lobes. No abnormal focus of restricted diffusion. No enhancing lesion in the brain parenchyma. INTRACRANIAL HEMORRHAGE: No acute intracranial hemorrhage. CSF SPACES: Advanced cerebral volume loss as well as cerebellar vermian atrophy again noted. No midline shift or other significant mass effect. No extra-axial fluid collection. VESSELS: Major intracranial flow voids maintained. ORBITS: Symmetric morphology of the optic nerves without abnormal enhancement. PARANASAL SINUSES: Left maxillary sinus mucous retention cyst again seen. 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 No evidence for abnormal restricted diffusion or enhancing lesion to suggest active demyelination. No evidence of enhancing intracranial mass, acute infarct, or acute intracranial hemorrhage. Chronic involutional changes. at 1647 Reported and signed by: Angélica Mane MD Electronically Signed: Angélica Mane MD at 16:46 EST ,
[2021-05-11 07:15] LABS: CREATININE FINGERSTICK 0.81 mg/dL (0.55-1.02); EGFR FINGERSTICK > 60 mL/min (>60)
== END 2021-05-10 23:59 | disposition home or self-care (01) ==
PROVIDERS: PCP Internal Medicine; Visit Provider Physician Assistant
DX: G35 Multiple sclerosis (principal)
CPT/HCPCS: 70553; A9575

== ENCOUNTER → 2021-09-27 | Outpatient (CLI) | payer MEDICARE, OTHER, SELFPAY ==
[2021-09-27 14:35] VITALS: BP 108/68; PULSE 99; RESP 16; TEMP 35.9; O2SAT 96
[2021-09-27] MEDS: DENOSUMAB 60 MG/ML SC (14:40)
== END | disposition home or self-care (01) ==
LOC: MEDOUTP 14:24
PROVIDERS: PCP Internal Medicine; Referring Provider Internal Medicine; Visit Provider Internal Medicine
DX: M81.0 Age-related osteoporosis without current pathological fracture (principal)
CPT/HCPCS: 96372; J0897

== ENCOUNTER → 2022-04-04 | Outpatient (CLI) | payer MEDICARE, OTHER, SELFPAY ==
[2022-04-04] MEDS: DENOSUMAB 60 MG/ML SC (14:35)
[2022-04-04 14:37] VITALS: BP 130/73; PULSE 100; RESP 16; TEMP 35.7; O2SAT 100
== END | disposition home or self-care (01) ==
LOC: MEDOUTP 14:29
PROVIDERS: PCP Internal Medicine; Referring Provider Internal Medicine; Visit Provider Internal Medicine
DX: M81.0 Age-related osteoporosis without current pathological fracture (principal)
CPT/HCPCS: 96372; J0897

== ENCOUNTER → 2022-04-21 | Outpatient (CLI) | payer MEDICARE, OTHER, SELFPAY ==
--- NOTE | 2022-04-21 14:41 | BI_ITS ---
MAMMOGRAPHY - BILATERAL SCREENING REASON FOR EXAM: Female, 71 years old. Routine annual screening examination. PERTINENT HISTORY: Mother with breast cancer. Grandmother with breast cancer. TECHNIQUE: Digital bilateral breast sheila (3D mammographic acquisition) in the CC and MLO projections. 2-D mediolateral oblique (MLO) and craniocaudad (CC) views of both breasts were obtained. CAD: Full Field Digital Mammography with Computer Added Detection was performed. COMPARISON: Comparison is made with prior study dated 03/15/2021. FINDINGS: Breast Composition: The breasts are heterogeneously dense, which may obscure small masses. There are no dominant masses or suspicious calcifications. No other significant abnormalities are identified. There has been no significant change since the prior study. BI/SCRN MAMM (CAD)W/SHEILA BILAT IMPRESSION: Stable bilateral screening mammogram. Yearly follow-up mammogram recommended. (A) ASSESSMENT CATEGORY: BIRADS Category 1: Negative. A letter regarding these results will be sent to the patient by the facility within 30 days. Approximately 10% of breast cancers are not detected by mammography. A normal mammogram should not delay biopsy of a clinically suspicious abnormality. [id number] Electronically Signed: Adrián Geiger MD at 15:25 EST ,
== END | disposition home or self-care (01) ==
LOC: OPBI 14:39
PROVIDERS: PCP Internal Medicine; Visit Provider Internal Medicine
DX: Z12.31 Encounter for screening mammogram for malignant neoplasm of breast (principal); Z80.3 Family history of malignant neoplasm of breast
CPT/HCPCS: 77063; 77067

== ENCOUNTER 2022-10-03 14:13 | Outpatient (CLI) | payer MEDICARE, OTHER, SELFPAY ==
[2022-10-03 14:25] VITALS: BP 123/80; PULSE 93; RESP 16; TEMP 36.2; O2SAT 96
[2022-10-03] MEDS: DENOSUMAB 60 MG/ML SC (14:30)
== END 2022-10-03 14:14 | disposition home or self-care (01) ==
LOC: MEDOUTP 14:14
PROVIDERS: PCP Internal Medicine; Referring Provider Internal Medicine; Visit Provider Internal Medicine
DX: M81.0 Age-related osteoporosis without current pathological fracture (principal)
CPT/HCPCS: 96372; J0897

== ENCOUNTER 2023-04-03 13:52 | Outpatient (CLI) | payer MEDICARE, OTHER, SELFPAY ==
[2023-04-03 14:02] VITALS: BP 117/87; PULSE 88; RESP 14; TEMP 35.7; O2SAT 98; BMI 22.1
[2023-04-03] MEDS: DENOSUMAB 60 MG/ML SC (14:19)
== END 2023-04-03 13:53 | disposition home or self-care (01) ==
LOC: MEDOUTP 13:52
PROVIDERS: PCP Internal Medicine; Referring Provider Internal Medicine; Visit Provider Internal Medicine
DX: M81.0 Age-related osteoporosis without current pathological fracture (principal)
CPT/HCPCS: 96372; J0897

== ENCOUNTER → 2023-06-14 | Outpatient (CLI) | payer MEDICARE, OTHER, SELFPAY ==
--- NOTE | 2023-06-14 12:29 | BI_ITS ---
MAMMOGRAPHY - BILATERAL SCREENING REASON FOR EXAM: Female, 73 years old. Routine annual screening examination. PERTINENT HISTORY: Mother with breast cancer. Grandmother with breast cancer. TECHNIQUE: Digital bilateral breast sheila (3D mammographic acquisition) in the CC and MLO projections. 2-D mediolateral oblique (MLO) and craniocaudad (CC) views of both breasts were obtained. CAD: Full Field Digital Mammography with Computer Added Detection was performed. COMPARISON: Comparison is made with prior study dated April 21, 2022 and March 15, 2021. FINDINGS: Breast Composition: The breasts are heterogeneously dense, which may obscure small masses. There are no dominant masses or suspicious calcifications. No other significant abnormalities are identified. There has been no significant change since the prior study. BI/SCRN MAMM (CAD)W/SHEILA BILAT IMPRESSION: Stable bilateral screening mammogram. Yearly follow-up mammogram recommended. (A) ASSESSMENT CATEGORY: BIRADS Category 1: Negative. A letter regarding these results will be sent to the patient by the facility within 30 days. Approximately 10% of breast cancers are not detected by mammography. A normal mammogram should not delay biopsy of a clinically suspicious abnormality. [id number] Electronically Signed: Adrián Geiger MD at 13:16 EST ,
--- NOTE | 2023-06-14 12:42 | BD_ITS ---
STUDY: DUAL ENERGY X-RAY ABSORPTIOMETRY / DXA REASON FOR EXAM: Female, 73 years old. Z780 TECHNIQUE: Bone Mineral Density (BMD) measurements of lumbar spine and bilateral hips were obtained. COMPARISON: Comparison is made with prior study March 15, 2021. FINDINGS: Lumbar Spine (L1-L4): g/cm2 (1.180) / T-score (1.3) / Z-score (3.5) Findings are suggestive of normal bone density with a low fracture risk. Left Femur Total: g/cm2 (0.668) / T-score (-2.2) / Z-score (-0.6) Left Femoral Neck: g/cm2 (0.560) / T-score (-2.6) / Z-score (-0.7) Right Femur Total: g/cm2 (0.647) / T-score (-2.4) / Z-score (-0.8) Right Femoral Neck: g/cm2 (0.601) / T-score (-2.2) / Z-score (-0.3) The T-Scores on the most recent prior examination were: Lumbar Spine (L1-L4): There has been improvement of bone density since the previous examination. Left Femur Total: which represents an improvement of 0.7. Right Femur Total: which represents an improvement of 2.6%. BD/Dexa Bone Density Study IMPRESSION: The patient is considered osteoporotic as outlined below according to World Edmar Organization (WHO) criteria with a high fracture risk. There has been improvement of bone density since the previous examination. Reference Information: The T-score is the number of standard deviations above or below the standard which is normal for young adults at their peak bone mineral density. The World Health Organization (WHO) interprets the T-scores as follows: Above -1 Normal bone density Between -1 and -2.5 Osteopenia Equal to / or below -2.5 Osteoporosis As a practical clinical guideline, osteopenia may be graded as follows: Mild -1 through -1.5 Moderate -1.6 through -2.0 Severe -2.1 through -2.4 The Z-score is the number of standard deviations above or below age-matched controls. A Z-score of less than -1.5 would be considered abnormal. References: 1. NIH Osteoporosis and Related Bone Diseases www osteo.org 2. International Society for Clinical Densitometry www iscd.org 3. National Osteoporosis Foundation www nof.org Electronically Signed: Adrián Geiger MD at 9:14 EST ,
== END | disposition home or self-care (01) ==
LOC: OPBD 12:26
PROVIDERS: PCP Internal Medicine; Referring Provider Internal Medicine; Visit Provider Internal Medicine
DX: Z12.31 Encounter for screening mammogram for malignant neoplasm of breast (principal); Z78.0 Asymptomatic menopausal state; Z80.3 Family history of malignant neoplasm of breast
CPT/HCPCS: 77063; 77067; 77080

== ENCOUNTER 2023-10-05 13:25 | Outpatient (CLI) | payer MEDICARE, OTHER, SELFPAY ==
[2023-10-05 13:36] VITALS: BP 120/56; PULSE 97; RESP 16; TEMP 36.6; O2SAT 99
[2023-10-05] MEDS: DENOSUMAB 60 MG/ML SC (13:39)
== END 2023-10-05 23:59 | disposition home or self-care (01) ==
LOC: MEDOUTP 13:25
PROVIDERS: PCP Internal Medicine; Referring Provider Internal Medicine; Visit Provider Internal Medicine
DX: M81.0 Age-related osteoporosis without current pathological fracture (principal)
CPT/HCPCS: 96372; J0897

== ENCOUNTER → 2024-06-30 | Outpatient (CLI) | payer MEDICARE, OTHER, SELFPAY ==
--- NOTE | 2024-06-30 13:30 | BI_ITS ---
EXAM: SCRN MAMM (CAD)W/SHEILA BILAT DATE: 06/30/2024 CLINICAL HISTORY: F, Age 74 y/o , SCREENING. Mother with breast cancer. Grandmother with breast cancer. BREAST CANCER RISK ASSESSMENT: Not assessed. TECHNIQUE: Bilateral screening digital breast tomosynthesis with 2D and 3D images. Computer aided detection. COMPARISON: Prior exam(s) dating back to June 14, 2023.. FINDINGS: Bilateral Breast Mammographic Findings: No significant masses, calcifications or other abnormalities are identified. TISSUE DENSITY: The breast tissue is heterogenously dense, which may obscure small masses. No suspicious masses, areas of developing architectural distortion, or suspicious calcifications. BI/SCRN MAMM (CAD)W/SHEILA BILAT IMPRESSION: Right Breast: BI-RADS category 1, negative findings. Left Breast: BI-RADS category 1, negative findings. Normal interval followup mammograms are recommended in 12 months. A letter with findings and recommendations will be mailed to the patient. ASSESSMENT: BIRADS 1 NEGATIVE RECOMMENDATION: 1: ROUTINE ANNUAL FOLLOW-UP Bilateral in 1 Year Reading Location: [place] [id number]
== END | disposition home or self-care (01) ==
LOC: OPBI 13:13
PROVIDERS: PCP Internal Medicine; Referring Provider Internal Medicine; Visit Provider Internal Medicine
DX: Z12.31 Encounter for screening mammogram for malignant neoplasm of breast (principal); Z80.3 Family history of malignant neoplasm of breast
CPT/HCPCS: 77063; 77067

== ENCOUNTER → 2025-02-09 | Outpatient (CLI) | payer MEDICARE, OTHER, SELFPAY ==
[2025-02-09 16:14] LABS: Hematocrit 40.9 % (37-47); Hemoglobin 13.4 g/dL (12.0-15.0); Immature Granulocytes Count 0.020 X10^3/uL (0.0-0.0); Mean Corp Hgb Conc 32.8 g/dL (32-36); Mean Corpuscular Volume 96.0 fL (81-99); Mean Platelet Vol. 10.7 fl (6.2-12.0); NRBC Flagged by Analyzer 0 % (0-5); Platelet Count 326 K/mm3 (150-450); RBC Distribution Width CV 12.5 % (11.6-14.6); RBC Distribution Width SD 43.8 fl (35.1-43.9); Red Blood Count 4.26 M/mm3 (4.2-5.4); White Blood Count 6.9 K/mm3 (4.4-11.0)
[2025-02-09 16:56] LABS: PTHIN 54 pg/mL (11-61)
[2025-02-09 16:59] LABS: AST(SGOT) 30 U/L (<=31); Alanine Aminotransfer ALT/SGPT 34 U/L (<=34); Albumin, Serum 4.4 g/dL (3.4-4.8); Alkaline Phosphatase 131 U/L (35-104); Anion Gap 11 (5-15); BUN 23 mg/dL (4-19); BUN/Creat Ratio 28.2 RATIO (10-20); Calcium,Total 9.6 mg/dL (7.6-11.0); Carbon Dioxide 25.2 mmol/L (21.0-32.0); Chloride 104 mmol/L (98-108); Globulin 2.0 g/dL (2.2-4.2); Glucose 94 mg/dL (70-99); Potassium 4.2 mmol/L (3.3-5.1); Vitamin D,25 Hydroxy 55.7 ng/mL (30-100)
[2025-02-09 17:13] LABS: Cholesterol 148 mg/dL (<=200); Low Density Lipoprotein Calc. 73 mg/dL; Triglycerides 49 mg/dL; Very Low Density Lipoprotein 10 mg/dL (5-40); cholesterol:hdl ratio screen 2.29
[2025-02-11 15:08] LABS: PROEL- A/G Ratio 1.4 (0.7-1.7); PROEL- Albumin 3.7 g/dL (2.9-4.4); PROEL- Alpha-1 Globulin 0.3 g/dL (0.0-0.4); PROEL- Alpha-2 Globulin 0.8 g/dL (0.4-1.0); PROEL- Beta Globulin 0.9 g/dL (0.7-1.3); PROEL- Gamma Globulin 0.7 g/dL (0.4-1.8); PROEL- Globulin, Total 2.7 g/dL (2.2-3.9); PROEL- TOTAL PROTEIN 6.4 g/dL (6.0-8.5); PROEL-M-Spike Not Observed g/dL (Not Observed)
== END | disposition home or self-care (01) ==
LOC: LABSPEC 15:24
PROVIDERS: PCP Internal Medicine; Referring Provider Internal Medicine; Visit Provider Internal Medicine
DX: E83.52 Hypercalcemia (principal); E78.5 Hyperlipidemia, unspecified; I10 Essential (primary) hypertension; M81.0 Age-related osteoporosis without current pathological fracture
CPT/HCPCS: 80053; 80061; 82306; 83970; 84165; 85025